=== PATIENT | female | born 1945 | race Caucasian/White ===

== ENCOUNTER 2018-03-13 00:35 | Outpatient (CLI) | payer BC, SELFPAY ==
--- NOTE | 2018-03-13 15:49 | DI.MAMMO_ITS ---
SYMPTOM/DIAGNOSIS: SCREENING, Z12.31 MAMMOGRAMS: Mammograms were interpreted according to the usual protocol including computer analysis with CAD system, tomosynthesis and C view imaging. Comparison is made with exams from [id number]. The breasts are composed of scattered fibroglandular densities. There are no suspicious masses or suspicious microcalcifications. There has been no significant change. IMPRESSION: Category 1B, negative mammogram. Yearly screening mammography is recommended. [facility] ASSESSMENT OF FINDINGS: Negative. Category 1. Patient will receive a letter notifying them of these results. BI-RADS category B. There are scattered areas of fibroglandular density.
== END 2018-03-13 00:55 ==
PROVIDERS: PCP Family Medicine; Visit Provider Family Medicine
DX: Z12.31 Encounter for screening mammogram for malignant neoplasm of breast (principal)
CPT/HCPCS: 77063; 77067

== ENCOUNTER 2018-08-30 01:58 | Outpatient (CLI) | payer BC, SELFPAY ==
[2018-08-30 08:46] LABS: HCT 39.5 % (36.0-46.0); HGB 12.5 g/dL (12.0-15.5); Mean Corp. HGB Concentration 31.6 g/dL (32.0-36.0); Mean Corpuscular Hemoglobin 23.2 pg (27.0-33.0); Mean Corpuscular Volume 73.4 fL (80-95); Platelet Count 574 x1000/uL (130-400); RBC 5.38 m/cumm (4.00-5.20); RBC Distribution Width 16.6 % (11.7-14.6); White Blood Cell Count 5.45 k/cumm (4.4-10.8)
[2018-08-30 09:37] LABS: ALT 21 U/L (12-78); AST 17 U/L (15-37); Albumin 3.4 g/dL (3.4-5.0); Alkaline Phosphatase 93 U/L (46-116); Anion Gap 7.6 mmol/L (3-11); BUN 12 mg/dL (7-18); Bilirubin, Total 0.3 mg/dL (0.2-1.0); CO2 30.4 mmol/L (21.0-32.0); CREATININE 0.75 mg/dL (0.55-1.02); Calcium 8.8 mg/dL (8.5-10.1); Calculated LDL 134 mg/dL; Chloride 103 mmol/L (98-107); Cholesterol 209 mg/dL (50-200); Glucose 115 mg/dL (70-100); HDL Cholesterol 62 mg/dL (40-60); Potassium 4.3 mmol/L (3.5-5.1); Sodium 141 mmol/L (136-145); Triglyceride 69 mg/dL (30-150)
== END 2018-08-30 02:18 ==
PROVIDERS: PCP Family Medicine; Visit Provider Family Medicine
DX: Z00.00 Encounter for general adult medical examination without abnormal findings (principal); I10 Essential (primary) hypertension; R73.01 Impaired fasting glucose; E78.5 Hyperlipidemia, unspecified; M85.80 Other specified disorders of bone density and structure, unspecified site
CPT/HCPCS: 36415; 80053; 80061; 83721; 85027

== ENCOUNTER 2020-01-31 04:15 | Outpatient (CLI) | payer MEDICARE, BC, SELFPAY ==
--- NOTE | 2020-01-31 | DI.MAMMO_ITS ---
EXAM: MG MAMMO SCREENING CLINICAL HISTORY: SCREENING,Z12.31 TECHNIQUE: Bilateral full field digital CC and MLO mammographic images were obtained with 3D tomosyn thesis and utilizing computer aided detection (CAD). COMPARISON: Available for comparison. FINDINGS: Masses/Architectural Distortion: None seen. Microcalcifications: No suspicious pleomorphic-type are seen. Skin Thickening/Nipple Retraction: None. IMPRESSION: 1. No significant interval change with no specific features of malignancy noted. 2. Unless there is more urgent need, screening mammography is recommended, as per [employer] guidelines. BI-RADS Category 1 - Negative Breast Density - Category B - Scattered areas of fibroglandular density Breast density category C or D implies that the patient has dense breast tissue. Dense breast tissue is very common and is not abnormal but dense breast tissue can make it harder to find cancer on a ma mmogram. Also, dense breast tissue may increase their breast cancer risk. This information about the result of the mammogram report was provided to the patient to raise their awareness. Use this report when you speak with the patient about their risks for breast cancer, which includes their family hist ory. At that time, you may recommend for more screening tests (Ultrasound or MRI) as they might be us eful based on their risk. A negative radiographic report should not delay biopsy if a dominant or clinically suspicious mass is present. Up to ten percent of cancers are not identified on mammography. A negative report may reinforce clinical impression. Adenosis and dense breasts may obscure an underlying neoplasm. False positive reports average 6 to 10%. Patient will receive a letter notifying them of these results.
== END 2020-01-31 04:35 ==
PROVIDERS: PCP Family Medicine; Visit Provider Family Medicine
DX: Z12.31 Encounter for screening mammogram for malignant neoplasm of breast (principal)
CPT/HCPCS: 77063; 77067

== ENCOUNTER → 2020-05-22 09:52 | Outpatient (BNVA) | payer MEDICARE, BC, SELFPAY | PROVIDERS: PCP Family Medicine; Referring Provider Family Medicine; Visit Provider Physical Therapy Assistant | DX: Z12.11 Encounter for screening for malignant neoplasm of colon (principal); I10 Essential (primary) hypertension; Z86.010 Personal history of colon polyps ==

== ENCOUNTER 2020-05-29 02:09 | Outpatient (CLI) | payer MEDICARE, SELFPAY ==
[2020-05-29 11:28] LABS: Source Nasal/Nares
[2020-05-29 13:58] LABS: COVID-19 PCR Negative (Negative)
== END 2020-05-29 02:10 | disposition home or self-care (01) ==
LOC: LBO 02:09
PROVIDERS: PCP Family Medicine; Visit Provider Surgery
DX: Z20.822 Contact with and (suspected) exposure to COVID-19 (principal)
CPT/HCPCS: 87635

== ENCOUNTER 2020-06-01 13:16 | Day surgery (SDC) | payer MEDICARE, SELFPAY ==
--- NOTE | 2020-06-01 07:05 | W.COLOREPORT ---
Date of service: 06/01/20 Time of Service: 14:07 Colonoscopy Report Date of procedure: 06/01/20 Pre-op diagnosis general: Hx of polyps Post-op diagnosis procedure note: same (polyps and diverticulosis) Procedure: Colonoscopy with polypectomy Surgeon: Candy Carvalho Anesthesia Type: General:No Airway Estimated blood loss (mL): 3 Pathology: other (cecal polyp, descending polyps x2, sigmoid polyp) Complications: None Disposition: same day Indications: The patient is here for Colonoscopy pre-op. Her last screening was in 2012 and was remarkable for tubular adenomatous polyps. She has no family history of colon cancer. She has not had any bowel habit changes. -Discussed colonoscopy bowel prep as well as the procedure. Discussed possible complications of the procedure to include bleeding, pain, perforation, missed small lesion/polyp, sore throat, aspiration and adverse reaction to the medications. Questions were answered to patient?s satisfaction. No guarantees were implied or given. Prep: Miralax/Dulcolax Procedure Start Time: 14:07 Procedure End Time: 14:38 Retraction Time: 14 minutes Findings: 4 small polyps mild diverticulosis Procedure Description: After informed consent was obtained the patient was taken to the procedure room and placed in a left decubitous position. Monitors were applied and a time out was done. The patients name, date of , procedure, allergies to medications and metal in their body was reviewed. The patient was then sedated. Once sedated and comfortable a rectal exam was done. External exam was normal. Internal exam revealed a normal sphincter tone and no palpable masses. The scope was then introduced and retro-flexed. No internal hemorrhoids, polyps or masses were identified on retro-flexion. The scope was then advanced to the cecum without difficulty. The ileocecal vlave and appendiceal orifice were identified. The prep was good. The scope was then slowly retracted over 14 minutes back into the rectum. Polyps were removed with cold forceps in the cecum, and descending colon x2. One polyp was removed with a hot snare in the sigmoid colon. There was mild diverticulosis noted of the descending and sigmoid colon. The scope was removed and the patient was woken up and taken back to Same day surgery in stable condition. The patient tolerated the procedure well and there were no immediate complications. Follow up: The patient should follow up in 3-5 years unless they develop changes in bowel habits or other new gastrointestinal complaints.
--- NOTE | 2020-06-01 07:05 | W.PM.DSUDISC ---
Discharge Plan Disposition Patient Disposition: HOME Condition: Good Discharge Details Reason For Visit: colonoscopy Attending Provider: Candy Carvalho Primary Care Provider: Anamika Hubbard Home Meds and New Rx's Prescriptions: Continued ASPIRIN 81 MG tablet 1 tab PO DAILY RF: 0 multivitamin 1 EACH tablet 1 ea PO DAILY RF: 0 simvastatin [Zocor] 40 MG tablet 1 tab PO HS RF: 0 omeprazole [Prilosec] 20 MG capsule,delayed release(DR/EC) 1 tab PO DAILY RF: 0 hydrochlorothiazide 25 MG tablet 1 tab PO DAILY RF: 0 trimethoprim 100 MG tablet 100 mg PO HS Qty: 90 RF: 0 metronidazole 0.75 % cream 1 applic topical BID RF: 0 ferrous gluconate 256 mg (28 mg iron) tablet 256 mg PO DAILY RF: 0 Discontinued bisacodyl [Dulcolax (bisacodyl)] 5 mg tablet,delayed release (DR/EC) 5 mg PO ONCE Qty: 4 RF: 0 polyethylene glycol 3350 17 gram/dose powder 238 g PO ONCE Qty: 238 RF: 0 Discharge Instructions Instructions: Diverticulosis (DC), Colorectal Polyps (DC) Additional Instructions: Findings: 4 polyps Diverticulosis Follow up: 3-5 years Please call if you develop: fevers >101.5 Nausea or Vomiting Abdominal pain that is not transient DAY SURGERY UNIT POST ENDOSCOPY INSTRUCTIONS 1. Because there will be medication in your system for the next 24 hours, you may feel a little sleepy. Your coordination will be affected. Therefore: a. Do not drive or operate dangerous equipment for 24 hours. b. Do not drink alcohol beverages for 24 hours (not even beer). c. Plan to go home and rest for the day. 2. Generally there are no restrictions on your activity after a day or so has gone by, but you may feel a bit fatigued for a few days. 3 After you arrive home you may have a light meal and return to a normal diet as you can tolerate it without feeling sick to your stomach. 4. After surgery, you may feel pain or discomfort. This should be only transient, but if it persists please contact your doctor. 5. If there are any questions regarding the findings of your procedure, please feel free to contact your doctor. 6. If you are unable to contact your doctor with a problem, contact the hospital at [phone]. 7. Continue all your regular medications unless directed otherwise. I understand the above instructions and have no questions. Signature of Patient or Responsible Adult Escort Date/Time Name of Responsible Adult Escort Signature of Nurse Date/Time Activity:: Activity as Tolerated Diet:: high fiber diet Discharge Orders Discharge Orders: Discharge Order (Routine); Ordered 06/01/20 Ordered By: Candy Carvalho
[2020-06-01 13:20] VITALS: BP 160/100; PULSE 87; RESP 18; TEMP 36.6; O2SAT 96
[2020-06-01] MEDS: Lactated Ringers 1,000 ML 80 ML IV (13:50)
--- NOTE | 2020-06-01 14:17 | BOWEL_PTH ---
PATIENT: Zarina Pitt LOC: [facility] U#:[id number] AGE/SX: 74/F ROOM: RE06/01/[address]: Candy Carvalho MD : [id number] BED: DIS: 06/01/2020 SPEC #: [id number] RECD: 06/01/20 16:55 STATUS: MICHAEL REHenry #: [id number] JANIS: 06/01/20 14:[address]: Candy Carvalho DEPT: Surgical Specimen RECD BY: Elidia Martinez ENTERED: 06/01/20 16:56 SP TYPE: Bowel OTHR DR: Anamika Hubbard Tissues: 1 - BIOPSY BOWEL 2 - BIOPSY BOWEL 3 - BIOPSY BOWEL 4 - BIOPSY BOWEL Procedures: GROSS AND MICRO LEVEL 4 Comments: [id number]
[2020-06-01 15:09] VITALS: BP 132/83; PULSE 84; RESP 18; TEMP 36.1; O2SAT 97
[2020-06-01 15:40] VITALS: BP 139/83; PULSE 77; RESP 22; TEMP 36.8; O2SAT 94
== END 2020-06-01 16:05 | disposition home or self-care (01) ==
LOC: SUR 13:17
PROVIDERS: PCP Family Medicine; Visit Provider Surgery
PROC: 0DJD8ZZ Inspection of Lower Intestinal Tract, Via Natural or Artificial Opening Endoscopic (ICD-10-PCS; CPT 45378; principal; 2020-06-01 14:30)
DX: Z12.11 Encounter for screening for malignant neoplasm of colon (principal); Z86.010 Personal history of colon polyps; D12.0 Benign neoplasm of cecum; K57.30 Diverticulosis of large intestine without perforation or abscess without bleeding
CPT/HCPCS: 45385; 45380; 88305; J2001; J2704

== ENCOUNTER 2020-08-18 16:58 | Outpatient (REF) | payer MEDICARE, SELFPAY ==
[2020-08-18 22:20] LABS: HCT 49.5 % (36.0-46.0); HGB 15.9 g/dL (11.2-15.7); MCH 29.7 pg (27.0-33.0); MCHC 32.1 % (32.0-36.0); MCV 92.4 fL (80-95); MPV 10.3 fL (8.0-11.0); Platelet Count 674 10^3/uL (130-400); RBC 5.36 10^6/uL (3.93-5.22); RDW 13.5 % (11.7-14.6); RDW-SD 45.8 fL; WBC 5.57 10^3/uL (4.4-10.8)
[2020-08-18 22:33] LABS: Hemoglobin A1C 5.8 % (<5.7)
[2020-08-18 22:52] LABS: Iron 54 ug/dL (50-170); Total Iron Binding Capacity 296 ug/dL (250-450); Transferrin Sat 18 % (15-50)
[2020-08-18 22:53] LABS: Anion Gap 9.5 mmol/L (3-11); BUN 10 mg/dL (7-18); CO2 28.5 mmol/L (21.0-32.0); CREATININE 0.9 mg/dL (0.55-1.02); Calcium 9.1 mg/dL (8.5-10.1); Calculated LDL 125 mg/dL (<100); Chloride 102 mmol/L (98-107); Cholesterol 210 mg/dL (<200); Glucose 124 mg/dL (74-106); HDL Cholesterol 65 mg/dL (40-60); Potassium 4.5 mmol/L (3.5-5.1); Sodium 140 mmol/L (136-145); Triglyceride 100 mg/dL (<150)
== END 2020-08-18 16:59 | disposition home or self-care (01) ==
LOC: NCHCN 16:58
PROVIDERS: PCP Family Medicine; Visit Provider Nurse Practitioner Family
DX: I10 Essential (primary) hypertension (principal); R73.03 Prediabetes; R05 Cough; Z86.2 Personal history of diseases of the blood and blood-forming organs and certain disorders involving the immune mechanism
CPT/HCPCS: 80048; 80061; 85027; 83036; 83540; 83550

== ENCOUNTER 2020-10-12 04:47 | Outpatient (CLI) | payer MEDICARE, SELFPAY ==
[2020-10-12] MEDS: Methacholine 100 MG VIAL IH (11:56)
[2020-10-12] MEDS: Inhaler, Assist Device 1 EACH MC (11:56)
[2020-10-12] MEDS: Albuterol HFA 18 GM 200 PUFF INH IH (11:56)
--- NOTE | 2020-10-12 12:06 | W.PFT ---
Date of service: 10/12/20 Time of Service: 10:05 Pulmonary Function Test Result Requesting Provider Zaira Echavarria Interpretation Spirometry: There is no airflow obstruction. There is a restricted pattern to spirometry. Lung Volumes: There is moderate restrictive lung disease Diffusion Capacity: The diffusion is normal Airway Pressure: Airways resistance is normal Impression There is moderate restrictive lung disease present. There is no airflow obstruction present. Clinical Correlation therefore is recommended.
--- NOTE | 2020-10-12 12:09 | W.PFT ---
Date of service: 10/12/20 Time of Service: 10:05 Pulmonary Function Test Result Requesting Provider Zaira Echavarria Interpretation Spirometry: There is no airflow limitation present at baseline. There is a restrictive pattern to spirometry. Methacholine challenge testing was performed. This is a positive methacholine challenge test after administration of 8 mg/mL resulting in a 22% decrease in FEV1. Impression Positive methacholine challenge test. Clinical Correlation therefore is recommended.
== END 2020-10-12 04:48 | disposition home or self-care (01) ==
LOC: RT 04:47
PROVIDERS: PCP Family Medicine; Visit Provider Nurse Practitioner Family
DX: R05 Cough (principal); J98.4 Other disorders of lung
CPT/HCPCS: 94060; 94726; 94729; 95070; 94010; J7674

== ENCOUNTER 2020-10-20 02:46 | Outpatient (CLI) | payer MEDICARE, SELFPAY ==
--- NOTE | 2020-10-20 | DI.DEXA_ITS ---
Exam(s) XR DEXA BONE DENSITY W/WO EDGAR EXAM: XR DEXA BONE DENSITY W/WO EDGAR CLINICAL HISTORY: OSTEOPENIA,M85.80 TECHNIQUE: Routine DEXA evaluation of the lumbar spine, hip, or forearm. COMPARISON: Prior DEXA scan performed August 2015 FINDINGS: Performed on a [employer] unit. Lateral image: No compression fracture evident. Lumbar Spine total T-score: -2.1. Prior 2016 result was -1.8 Hip total T-score:-2.5. Prior reading in 2016 was -1.5 Independent reading at the femoral neck yields a T-score of -2.1 Forearm total T-score: -2.3 IMPRESSION: Bone mineral density measures in the osteoporosis range. Fracture risk is high. Note: Any spine fracture indicates 5x risk for subsequent spine fracture and 2x risk for subsequent h ip fracture. World Health Organization criteria for BMD interpretation classify patients: Normal...... T- Score at or above -1.0 Osteopenic... T- Score between -1.0 and -2.5 Osteoporosis... T-Score at or below -2.5
== END 2020-10-20 03:06 ==
PROVIDERS: PCP Nurse Practitioner Family; Visit Provider Nurse Practitioner Family
DX: M85.89 Other specified disorders of bone density and structure, multiple sites (principal)
CPT/HCPCS: 77080

== ENCOUNTER 2020-11-20 22:26 | Observation (INO) | payer MEDICARE, SELFPAY ==
[2020-11-20] VITALS (14 sets, daily range): BP systolic 131–149; BP diastolic 76–89; PULSE 91–111; RESP 16–25; TEMP 36.6; O2SAT 92–96
--- NOTE | 2020-11-20 22:15 | RT.EKG_ITS ---
APPROVED REPORT Exam: Resting ECG Reason for Exam: palpitations Patient Location: E HR:105 bpm ECG Measurements Heart Rate 105 AXIS SC 194 P 28 QRSd 109 QRS -32 QT 362 T 76 QTc 479 Conclusion Sinus tachycardia...rate> 99 Ventricular premature complex...V complex w/ short R-R interval LVH with secondary repolarization abnormality...multi-LVH criteria, abnrm ST-T Inferior infarct, old...Q >35mS, II III aVF Anterior infarct, old...Q >40mS, abnormal ST-T, V2-V5. Sinus. PVCs. LVH. No STEMI. I have reviewed and interpreted ECG and agree with software generated interpretation.
--- NOTE | 2020-11-20 22:30 | DI.RAD_ITS ---
Exam(s) XR CHEST 2V PA LATERAL EXAM: XR CHEST 2V PA LATERAL CLINICAL HISTORY: Chest pain, dizziness, palpitations. TECHNIQUE: 2D digital imaging was performed. COMPARISON: CR CHEST 2 VIEWS PA,LAT from 09/23/2011 CT CHEST HIGH RESOLUTION from 06/30/2015 FINDINGS: Heart size is normal. The mediastinum is not widened. There are chest leads in place. There is a bilateral relatively symmetrical interstitial pattern in both lung blunt, not associated with pleural effusions a. consistent with an element of chronic interstitial disease, as seen on the chest CT scan of 2016. No new confluent infiltrates. No pleural effusions. IMPRESSION: Bilateral interstitial lung disease.This is probably related to an element of pulmonary fibrosis, as evident on the 2016 CT scan. However, cannot completely exclude some deterioration from that time gi nathaly that we are comparing a chest x-ray and chest CT scan. If clinically indicated follow-up chest C T scan can be performed for more accurate comparison. There are no pleural effusions. DATA REPOSITORY: RADIATION DOSE DELIVERED:
[2020-11-20 22:48] LABS: Abs Immature Grans 0.02 10^3/uL (0.0-0.06); Absolute Basophil Count 0.12 10^3/uL (0.0-0.2); Absolute Eosinophil Count 0.27 10^3/uL (0.0-0.7); Absolute Lymphocyte Count 1.64 10^3/uL (1.2-3.4); Absolute Neutrophil Count 6.82 10^3/uL (1.2-6.7); Basophils % 1.2; Eosinophils % 2.7; HCT 45.9 % (36.0-46.0); Immature Grans % 0.2; Lymphocytes % 16.6; MCH 29.8 pg (27.0-33.0); MCHC 32.7 % (32.0-36.0); MCV 91.1 fL (80-95); MPV 9.7 fL (8.0-11.0); Monocytes % 10.1; Neutrophils % 69.2; Nucleated RBC 0 %; Platelet Count 649 10^3/uL (130-400); RBC 5.04 10^6/uL (3.93-5.22); RDW 12.9 % (11.7-14.6); RDW-SD 43.5 fL; WBC 9.87 10^3/uL (4.4-10.8)
--- NOTE | 2020-11-20 22:49 | ED.GENADUL_ITS ---
Discharge Plan Disposition Patient Disposition: [facility] INPATIENT Condition: Improving Discharge Details Clinical Impression: Chest pain, Palpitations Admit Date/Time: 11/21/20 01:02 Admit Provider: Young Hoang Attending Provider: Young Hoang Primary Care Provider: Zaira Echavarria ED Provider: Mi Haji Discharge Data Discharge Date/Time-TO BE ENTERED AT DEPARTURE: 11/21/20 02:40 Medical Decision Making 74-year-old female presents to the ER via EMS with chief complaint of palpitations, dizziness, squeezing chest pain which began approximately 2030 this evening. Patient describes episode of being in the kitchen when she began having some palpitations and feeling that her heart was pounding she reports that it went away. She began feeling dizzy so she sat down. And the palpitations and squeezing in her chest returned with some radiation down her left arm. She reports that the episode lasted approximately 45 minutes. She states that once EMS arrived to her house the palpitations and squeezing subs ided. They did give 4 baby aspirin on scene prior to arrival. Upon initial exam and presentation to the ER department she was denies having any chest pain or squeezing or palpitations. She reports that her father of a IN at age 54. She denies any other cardiac history. She reports that she has never had an EKG. Past medical history on file include tubular adenoma, obesity, UTI and a polyp of the colon. Of note she did take a omeprazole this afternoon for some heartburn. 2234: EKG was reviewed by Dr. Sanide Cruz ER attending, please see her official report, no old EKG available for review. EKG shows left ventricular hypertrophy, occasional multifocal PVCs. Initial heart rate upon arrival is 105. 2315: [facility] cardiology consult requested and EKG faxed by unit staff. Initial troponin I less than 0.05 (within normal limits), CBC shows platelet count of 649, absolute neutrophils 6.2, CMP notable for potassium 3.0, glucose 120 40 mEq potassium liquid ordered p.o. Initial heart score is a 6 2321: Dr. Marquez with [facility] cardiology consulted I did discuss patient case and details with him he recommends repeat serial troponin and EKG and to contact them if any changes or any return of chest pain. At this time due to patient's concerning story, positive family history and dizziness I do recommend admission for observation and chest pain rule out, will contact hospitalist. 2343: Spoke with Dr. Hoang regarding patient case and details my recommendation for admission for chest pain rule out. He agrees to accept patient for admission at this time. Heart rate at this time is 97. I discussed plan of care with patient and family who verbalized understanding and are in agreement with the plan. HPI General Mode of arrival: EMS . Date/Time Provider Initiated Documentation: 11/20/20 22:36 . Limitations to Documentation: no limitations . Information obtained by: patient, EMS and old records reviewed . HPI Narrative: 74-year-old female presents to the ER via EMS with chief complaint of palpitations, dizziness, squeezing chest pain which began approximately 2030 this evening. Patient describes episode of being in the kitchen when she began having some palpitations and feeling that her heart was pounding she reports that it went away. She began feeling dizzy so she sat down. And the palpitations and squeezing in her chest returned with some radiation down her left arm. She reports that the episode lasted approximately 45 minutes. She states that once EMS arrived to her house the palpitations and squeezing subsided. They did give 4 baby aspirin on scene prior to arrival. Upon initial exam and presentation to the ER department she was denies having any chest pain or squeezing or palpitations. She reports that her father of a IN at age 54. She denies any other cardiac history. She reports that she has never had an EKG. Past medical history on file include tubular adenoma, obesity, UTI and a polyp of the colon. Of note she did take a omeprazole this afternoon for some heartburn. Related Data Home Medications Medication Instructions Recorded Confirmed Aspirin 1 tab PO DAILY 05/25/12 11/20/20 hydrochlorothiazide 1 tab PO DAILY 05/25/12 11/20/20 multivitamin 1 ea PO DAILY 05/25/12 11/20/20 omeprazole [Prilosec] 1 tab PO DAILY tab-cap 05/25/12 11/20/20 simvastatin [Zocor] 1 tab PO HS 05/25/12 11/20/20 ferrous gluconate 256 mg (28 mg 256 mg PO DAILY 03/12/20 11/20/20 iron) tablet metronidazole 0.75 % topical cream 1 applic TOPICAL BID 03/12/20 11/20/20 potassium chloride [Klor-Con M20] 20 meq PO DAILY #30 tab 11/21/20 Previous Rx's Medication Instructions Recorded potassium chloride [Klor-Con M20] 20 meq PO DAILY #30 tab 11/21/20 Allergies Allergy/AdvReac Type Severity Reaction Status Date / Time Penicillins Allergy Hives Unverified 11/20/20 22:30 atorvastatin calcium AdvReac INCREASE Unverified 11/20/20 22:30 [From Lipitor] IN CPK Anesthetic used during AdvReac Severe NAUSEA/VOMI Uncoded 11/20/20 22:30 hysterectomy TING General Stated Complaint: Chest Pain TY: 3 Review of Systems All systems reviewed & are unremarkable except as noted in HPI and below Constitutional Constitutional: Denies fever(s) Cardiovascular Cardiovascular: Reports chest pain, Denies syncope, Reports rapid heart rate, Denies pedal edema, Reports lightheadedness, Reports radiating jaw, neck or arm pain, Reports palpitations and Denies dyspnea Respiratory Respiratory: Denies cough, Denies hemoptysis and Denies dyspnea Gastrointestinal Gastrointestinal: Denies abdominal pain, Reports heartburn, Denies diarrhea, Reports nausea and Denies vomiting Neurologic Neurologic: Denies syncope Endocrine Endocrine: Reports palpitations [facility] Medical History (Updated 11/21/20 @ 11:45 by Young Hoang) Allergic rhinitis Essential hypertension GERD Hematuria History of basal cell cancer Hypercholesterolemia Hyperlipidemia IMPAIRED FASTING GLUCOSE Osteopenia Rosacea Surgical History Abdominal hysterectomy (04/21/98) Colonoscopy - IV Sedation (~2001) [facility] History of colonoscopy (~05/2020) Family History Mother Stroke Pulmonary embolism Father Heart disease Social History Smoking/Tobacco Use Status: Former Tobacco Use Quit Date: 02/13/69 Smoking risk assessment performed?: Yes Alcohol Intake: current Alcohol Intake frequency: 0-2 drinks per day Alcohol type: wine and hard liquor Drug use: Never Substance use type: does not use Do you feel safe at home: Yes Do you feel safe in your relationship?: Yes Exam Narrative Exam Narrative: Constitutional: Alert and oriented x3. Appears stated age. Normal body habitus. Head: Normocephalic, no trauma. Eyes: Pupils PERRLA, Red reflex noted, EOM's intact. Eyelids symmetrical without lesions, discharge, or swelling. ENT: Bilateral TM's WNL, External ear normal to inspection, no mastoid TTP, swelling, or erythema, Nasal turbinates WNL, no nasal discharge. Normal dentition, Posterior pharynx WNL, no exudate. Chest:Sinus tachycardia, bounding S1, S2, no audible clicks, murmur, rubs, distal pulses intact. Chest pain is nonreproducible with palpation Abdomen: Soft, nontender nondistended. Resp: Lungs clear to auscultation bilaterally, no wheezes, rales, or rhonchi. Musculoskeletal: Normal gait, 5/5 strength to all four extremities. Skin: No suspicious rashes or lesions. Capillary refill less than 2 sec. Neurologic: Cranial nerves II-XII intact. Alert and oriented x 3. DTR's intact. Hematologic/Lymphatic: No ecchymosis, no lymphadenopathy. Course Vital Signs Vital signs: Vital Signs Temperature 36.6 C 11/20/20 22:26 Pulse 111 H 11/20/20 22:26 Respiratory Rate 16 11/20/20 22:26 Blood Pressure 149/81 H 11/20/20 22:26 Pulse Oximetry 96 11/20/20 22:26 Temperature 36.6 C 11/20/20 22:26 Temperature Source Skin 11/20/20 22:26 Pulse 111 H 11/20/20 22:26 Respiratory Rate 16 11/20/20 22:33 Respiratory Effort Non-Labored 11/20/20 22:33 Respiratory Pattern Normal 11/20/20 22:33 Blood Pressure 149/81 H 11/20/20 22:26 Pulse Oximetry 96 11/20/20 22:26 Pain Level 4 11/20/20 22:26 PAWSS Have you Been Recently Intoxicated or Drunk Within the Last 30 days?: No Have you Ever Experienced Previous Episodes of Alcohol Withdrawal?: No Have you ever Experienced Withdrawal Seizures?: No Have you ever Experienced Delirium Tremens(DT)s?: No Have you ever undergone Alcohol Rehabilitation Treatment (i.e, inpt ot outpatient treatment programs)?: No Have you ever Experienced Blackouts?: No Have you ever Combined Alcohol with other Downers within the last 90 days?: No Have you ever Combined Alcohol with any other Substance of Abuse during the last 90 days?: No Positive Blood Alcohol level on Presentation? [PCS.BAL]: No Evidence of Increased Autonomic Activity (i.e. HR>120, tremor, sweating, agitation, nausea)?: No Result: 0
[2020-11-20 23:09] LABS: ALT 19 U/L (14-59); AST 16 U/L (15-37); Albumin 3.4 g/dL (3.4-5.0); Alkaline Phosphatase 99 U/L (46-116); Anion Gap 6.8 mmol/L (3-11); BUN 17 mg/dL (7-18); Bilirubin, Total 0.2 mg/dL (0.2-1.0); CO2 30.2 mmol/L (21.0-32.0); CREATININE 0.9 mg/dL (0.55-1.02); Calcium 8.6 mg/dL (8.5-10.1); Chloride 103 mmol/L (98-107); Glucose 120 mg/dL (74-106); Magnesium 2.1 mg/dL (1.8-2.4); Sodium 140 mmol/L (136-145); Total Protein 7.4 g/dL (6.4-8.2)
[2020-11-20 23:11] LABS: Troponin I < 0.05 ng/mL (<0.06)
[2020-11-20] MEDS: Potassium Chloride Liquid 20 MEQ PKT 40 MEQ PO (23:22)
[2020-11-20 23:47] LABS: Prothrombin Time 10.1 sec (9.3-11.0)
[2020-11-20 23:54] LABS: D-Dimer 292 ng/mlFEU (<500)
[2020-11-20 23:57] LABS: Source Nasal/Nares
[2020-11-21] VITALS (16 sets, daily range): BP systolic 119–152; BP diastolic 75–90; PULSE 68–99; RESP 15–26; TEMP 36.5–37; O2SAT 91–96
--- NOTE | 2020-11-21 00:02 | DI.VRAD_ITS ---
PROCEDURE INFORMATION: Exam: XR Chest Exam date and time: 11/20/2020 10:41 PM Age: 74 years old Clinical indication: Other: Chest pain, dizziness, palpitations TECHNIQUE: Imaging protocol: XR of the chest. Views: 2 views. COMPARISON: CT CHEST HIGH RESOLUTION 06/30/2015 2:20 PM FINDINGS: Lungs: There are opacities along each heart border and in the retrocardiac region which could be related to scarring or progression of the patient's pulmonary fibrotic changes. Areas of atelectasis or infection are not excluded. Pleural spaces: No pneumothorax. Heart/Mediastinum: The mediastinum is measuring widened but similar to prior examination. Diaphragm: There is persistent elevation of the right hemidiaphragm. Bones/joints: Skeletal degenerative changes. IMPRESSION: 1. There are opacities along each heart border and in the retrocardiac region which could be related to scarring or progression of the patient's pulmonary fibrotic changes. Areas of atelectasis or infection are not excluded. 2. Other findings/details as above. If the patient's symptoms remain concerning, cross-sectional imaging could be considered. Dictated and Authenticated by: Lindsey Lindsey MD. Ordering:NAE Stark MD
[2020-11-21 00:46] LABS: COVID-19 PCR Negative (Negative)
[2020-11-21 01:43] LABS: Troponin I < 0.05 ng/mL (<0.06)
[2020-11-21] MEDS: Simvastatin 40 MG TAB PO (03:31)
[2020-11-21 07:23] LABS: Platelet Count 591 10^3/uL (130-400)
[2020-11-21 07:45] LABS: Anion Gap 5.2 mmol/L (3-11); BUN 12 mg/dL (7-18); CO2 31.8 mmol/L (21.0-32.0); CREATININE 0.8 mg/dL (0.55-1.02); Calcium 8.3 mg/dL (8.5-10.1); Chloride 105 mmol/L (98-107); Glucose 109 mg/dL (74-106); Potassium 3.6 mmol/L (3.5-5.1); Sodium 142 mmol/L (136-145); Troponin I < 0.05 ng/mL (<0.06)
[2020-11-21 07:52] LABS: Hemoglobin A1C 5.7 % (<5.7)
[2020-11-21] MEDS: Omeprazole 20 MG CAPCR PO (08:23)
[2020-11-21] MEDS: Aspirin 81 MG CHEW PO (08:23)
[2020-11-21] MEDS: Ferrous Gluconate 324 MG TAB PO (08:23)
[2020-11-21] MEDS: Enoxaparin 40 MG/0.4 ML SYR SC (08:23)
[2020-11-21] MEDS: Multivitamin TAB 1 TAB PO (08:23)
[2020-11-21 09:14] LABS: Calculated LDL 98 mg/dL (<100); Cholesterol 176 mg/dL (<200); HDL Cholesterol 49 mg/dL (40-60); Triglyceride 147 mg/dL (<150)
--- NOTE | 2020-11-21 10:49 | W.PM.HP.N ---
Date of service: 11/21/20 Time of Service: 10:50 Assessment and Plan Assessment and plan (1) Chest pain: Status: Acute Assessment and plan: Atypical chest pain and that the patient is generally fairly active doing gardening and housework and walking on the treadmill with no exertional chest pain or pressure. Symptoms last night occurred along with palpitations which is suspicious for paroxysmal tachycardia. This point patient be discharged home with a 30-day cardiac event recorder and will be scheduled for an exercise treadmill stress MPI next week and an echocardiogram. Patient is cautioned if she has any recurrent symptoms of lightheadedness dizziness shortness of breath chest pain or palpitations to return to the emergency department immediately or she should call 911. Qualifiers: Chest pain type: precordial pain Qualified Code(s): R07.2 - Precordial pain (2) Palpitations: Status: Acute Assessment and plan: As above (3) Essential hypertension: Status: Chronic Assessment and plan: Continue hydrochlorothiazide but will prescribe potassium supplementation and recheck her labs next week. If she continues to have hypokalemia then she should be switched to another oral antihypertensive agent or placed on a potassium sparing diuretic (4) GERD: Status: Chronic Assessment and plan: Her discomfort last night was not associated with her typical GERD and she says usually her GERD is well controlled as long she takes her antiacids and her omeprazole. History of Present Illness History of Present Illness Chief Complaint: chest pain/palpitations Narrative: 74 yr old female w/ PMH HTN, HLD, osteoporosis, GERD presented to the ER last night w/ acute onset of substernal chest pressure and palpitations. Symptoms occurred at rest after dinner last night and was associated w/ lightlheadedness and lasted about 40 minutes. Symptoms had resolved by the time she arrived to the ER. Workup in the ER included routine labs (CBC, CMP, serial troponin I levels, pro time and PTT and D-dimer. CBC was unremarkable other than elevated platelet count of 649,000, CMP was remarkable for low potassium at 3.0 and serial troponin I levels were negative at less than 0.05. Coagulation studies were unremarkable with a normal D-dimer 292. Imaging included high-resolution CT of the chest that showed opacities along the heart border in the retrocardiac region related to scarring or progression of patient's pulmonary fibrotic changes. Mediastinum was mildly widened but similar to previous examinations. EKG demonstrated sinus tachycardia rate 105 bpm with voltage criteria for LVH with secondary repolarization abnormalities. 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 Patient has remained pain-free overnight and repeat troponin I levels have been negative for acute infarct. Rhythm overnight has remained sinus rhythm with first-degree AV block and a left bundle branch block pattern. Heart rates been 60s to 90s.Repeat potassium is up to 3.6 this morning. Review of Systems Constitutional Constitutional: Reports as per HPI and Reports system reviewed and no additional complaints, except as documented [facility] Medical History (Updated 11/21/20 @ 11:25 by Young Hoang) Allergic rhinitis Essential hypertension GERD Hematuria History of basal cell cancer Hypercholesterolemia Hyperlipidemia IMPAIRED FASTING GLUCOSE Osteopenia Rosacea Surgical History Abdominal hysterectomy (04/21/98) Colonoscopy - IV Sedation (~2001) [facility] History of colonoscopy (~05/2020) Family History Mother Stroke Pulmonary embolism Father Heart disease Social History Smoking/Tobacco Use Status: Former Tobacco Use Quit Date: 02/13/69 Smoking risk assessment performed?: Yes Alcohol Intake: current Alcohol Intake frequency: 0-2 drinks per day Alcohol type: wine and hard liquor Drug use: Never Substance use type: does not use Do you feel safe at home: Yes Do you feel safe in your relationship?: Yes Meds Allergies and Home Medications Allergies Allergy/AdvReac Type Severity Reaction Status Date / Time Penicillins Allergy Hives Unverified 11/20/20 22:30 atorvastatin calcium AdvReac INCREASE Unverified 11/20/20 22:30 [From Lipitor] IN CPK Anesthetic used during AdvReac Severe NAUSEA/VOMI Uncoded 11/20/20 22:30 hysterectomy TING Home Medications Medication Instructions Recorded Confirmed Type Aspirin 1 tab PO DAILY 05/25/12 11/20/20 History hydrochlorothiazide 1 tab PO DAILY 05/25/12 11/20/20 History multivitamin 1 ea PO DAILY 05/25/12 11/20/20 History omeprazole [Prilosec] 1 tab PO DAILY tab-cap 05/25/12 11/20/20 History simvastatin [Zocor] 1 tab PO HS 05/25/12 11/20/20 History ferrous gluconate 256 mg (28 mg 256 mg PO DAILY 03/12/20 11/20/20 History iron) tablet metronidazole 0.75 % topical cream 1 applic TOPICAL BID 03/12/20 11/20/20 History Exam Const General: cooperative, no acute distress and well groomed Nutritional Appearance: average body habitus and well nourished Orientation: alert, awake and oriented x3 [facility] Head: normal to inspection, no palpable skull fracture, normocephalic and atraumatic General nose exam: external nose normal, nares normal and no nasal discharge Face and sinus: normal facial exam, sinuses nontender and face symmetric Mouth: oral mucosae normal, lip normal, tongue normal, oropharynx normal and moist mucous membranes Eyes General: appearance normal, both eyes and all related structures Visual Blunt: normal visual blunt by confrontation Alignment and Position: alignment normal Periorbital: periorbital findings normal Eyelids: eyelids normal Conjunctivae: conjunctivae normal Sclera: sclerae normal Cornea: corneas normal Pupils: PERRL, normal by confrontation and accommodation normal EOM: EOM intact bilaterally Neck Neck: normal visual inspection, full ROM, no lymphadenopathy, trachea midline and supple Thyroid: thyroid normal Carotids: normal carotid upstroke Lymphatic: no lymphadenopathy noted Chest Chest: normal inspection of the chest and normal palpation of entire chest wall Resp Effort & Inspection: normal respiratory effort and able to speak in complete sentences Auscultation: clear to auscultation bilaterally Percussion: percussion normal Cardio Jugular venous pressure: no JVD Palpation: normal PMI Rate: regular rate Rhythm: regular rhythm Heart Sounds: S1 normal, S2 normal and normal, physiologic split S2 Pulses: normal peripheral pulses GI Inspection: normal to inspection Palpation: soft, no hepatosplenomegaly and nontender Percussion: normal to percussion Auscultation: normal bowel sounds Skin General skin exam: no rashes or lesions noted, elasticity normal and turgor normal Lesions: no lesions Rashes: no rashes Trauma: no lacerations or abrasions Hair: normal Nails: normal Neuro General: patient alert, patient awake, patient oriented x3, moves all extremities and no focal motor deficits Cranial Nerves: CN's II-XI intact bilaterally, PERRL, accommodation normal, EOM intact bilaterally, no nystagmus, facial strength normal, tongue midline, gag reflex normal, hearing normal, able to rotate head bilaterally and able to elevate shoulders bilaterally Cognition: normal cognition Speech: speech normal Gait: normal gait Motor: muscle tone normal throughout, strength 5/5 throughout, no movement abnormalities noted and no fasciculations Sensory Exam: no sensory deficits noted Plantar Reflexes: Downgoing: bilateral Coordination: [id number] test normal, [id number] test normal and rapid alternating movement UE normal Extrem General: normal to inspection, full ROM, capillary refill normal, no joint enlargement, no clubbing, cyanosis or edema and no calf tenderness bilaterally Right upper extremity: normal to inspection, full ROM, normal capillary refill and no joint enlargement; no edema Left upper extremity: normal to inspection, full ROM, normal capillary refill and no joint enlargement; no edema Right lower extremity: normal to inspection, full ROM, normal capillary refill and no joint enlargement; no edema Left lower extremity: normal to inspection, full ROM, normal capillary refill and no joint enlargement; no edema Results Labs Result diagrams: 11/21/20 06:55 11/21/20 06:55 Labs: Laboratory Results - last 24 hr 11/20/20 11/20/20 11/20/20 22:33 22:33 22:33 WBC 9.87 RBC 5.04 Hgb 15.0 Hct 45.9 MCV 91.1 MCH 29.8 MCHC 32.7 RDW 12.9 Plt Count 649 H MPV 9.7 Immature Gran % 0.2 Neutrophils % 69.2 Lymphocytes % 16.6 Monocytes % 10.1 Eosinophils % 2.7 Basophils % 1.2 Nucleated RBC % 0 Absolute Neutrophils 6.82 H Absolute Lymphocytes 1.64 Absolute Monocytes 1.00 H Absolute Eosinophils 0.27 Absolute Basophils 0.12 PT INR APTT D-Dimer 292 Sodium 140 Potassium 3.0 L Chloride 103 Carbon Dioxide 30.2 Anion Gap 6.8 BUN 17 Creatinine 0.9 Estimated GFR/1.73 m2 >= 60.00 Glucose 120 H Hemoglobin A1c Calcium 8.6 Magnesium 2.1 Total Bilirubin 0.2 AST 16 ALT 19 Alkaline Phosphatase 99 Troponin I < 0.05 Total Protein 7.4 Albumin 3.4 Triglycerides Total Cholesterol LDL Cholesterol, Calc HDL Cholesterol COVID-19 Source SARS-CoV-2 (PCR) 11/20/20 11/20/20 11/21/20 22:33 23:50 01:10 WBC RBC Hgb Hct MCV MCH MCHC RDW Plt Count MPV Immature Gran % Neutrophils % Lymphocytes % Monocytes % Eosinophils % Basophils % Nucleated RBC % Absolute Neutrophils Absolute Lymphocytes Absolute Monocytes Absolute Eosinophils Absolute Basophils PT 10.1 INR 1.0 APTT 25.0 D-Dimer Sodium Potassium Chloride Carbon Dioxide Anion Gap BUN Creatinine Estimated GFR/1.73 m2 Glucose Hemoglobin A1c Calcium Magnesium Total Bilirubin AST ALT Alkaline Phosphatase Troponin I < 0.05 Total Protein Albumin Triglycerides Total Cholesterol LDL Cholesterol, Calc HDL Cholesterol COVID-19 Source Nasal/Nares SARS-CoV-2 (PCR) Negative 11/21/20 11/21/20 11/21/20 06:55 06:55 06:55 WBC RBC Hgb Hct MCV MCH MCHC RDW Plt Count MPV Immature Gran % Neutrophils % Lymphocytes % Monocytes % Eosinophils % Basophils % Nucleated RBC % Absolute Neutrophils Absolute Lymphocytes Absolute Monocytes Absolute Eosinophils Absolute Basophils PT INR APTT D-Dimer Sodium 142 Potassium 3.6 Chloride 105 Carbon Dioxide 31.8 Anion Gap 5.2 BUN 12 Creatinine 0.8 Estimated GFR/1.73 m2 >= 60.00 Glucose 109 H Hemoglobin A1c 5.7 Calcium 8.3 L Magnesium Total Bilirubin AST ALT Alkaline Phosphatase Troponin I < 0.05 Total Protein Albumin Triglycerides 147 Total Cholesterol 176 LDL Cholesterol, Calc 98 HDL Cholesterol 49 COVID-19 Source SARS-CoV-2 (PCR) 11/21/20 06:55 WBC RBC Hgb Hct MCV MCH MCHC RDW Plt Count 591 H MPV Immature Gran % Neutrophils % Lymphocytes % Monocytes % Eosinophils % Basophils % Nucleated RBC % Absolute Neutrophils Absolute Lymphocytes Absolute Monocytes Absolute Eosinophils Absolute Basophils PT INR APTT D-Dimer Sodium Potassium Chloride Carbon Dioxide Anion Gap BUN Creatinine Estimated GFR/1.73 m2 Glucose Hemoglobin A1c Calcium Magnesium Total Bilirubin AST ALT Alkaline Phosphatase Troponin I Total Protein Albumin Triglycerides Total Cholesterol LDL Cholesterol, Calc HDL Cholesterol COVID-19 Source SARS-CoV-2 (PCR) Last Vital Signs Temp 36.5 C 11/21/20 08:21 Pulse 68 11/21/20 08:21 Resp 18 11/21/20 08:21 BP 152/90 H 11/21/20 08:21 Pulse Ox 96 11/21/20 08:21 PAWSS Have you Been Recently Intoxicated or Drunk Within the Last 30 days?: No Have you Ever Experienced Previous Episodes of Alcohol Withdrawal?: No Have you ever Experienced Withdrawal Seizures?: No Have you ever Experienced Delirium Tremens(DT)s?: No Have you ever undergone Alcohol Rehabilitation Treatment (i.e, inpt ot outpatient treatment programs)?: No Have you ever Experienced Blackouts?: No Have you ever Combined Alcohol with other Downers within the last 90 days?: No Have you ever Combined Alcohol with any other Substance of Abuse during the last 90 days?: No Positive Blood Alcohol level on Presentation? [PCS.BAL]: No Evidence of Increased Autonomic Activity (i.e. HR>120, tremor, sweating, agitation, nausea)?: No Result: 0
[2020-11-21] MEDS: Triamterene 37.5/HCTZ 25 CAP PO (11:35)
--- NOTE | 2020-11-21 11:37 | W.PM.DS.N ---
Date of service: 11/21/20 Time of Service: 11:37 DS: Diagnosis Discharge Diagnosis (1) Chest pain: Status: Resolved Asessment and Plan: Patient remained asymptomatic throughout her hospital stay. Serial troponin I levels were within normal limits x3 sets. CTA of the chest showed no pulmonary embolism or aneurysm. Patient was requesting to return home and she will be set up with a 30-day cardiac event recorder looking for any paroxysmal supraventricular tachycardia or atrial fibrillation and should be set up for an echocardiogram and a treadmill stress MPI test next week. (2) Palpitations: Status: Resolved (3) Essential hypertension: Status: Chronic Asessment and Plan: Patient will remain on her current dose of hydrochlorothiazide but potassium supplementation has been ordered. Repeat potassium level be checked next week. (4) GERD: Status: Chronic Discharge Plan Disposition Patient Disposition: HOME Condition: Improving Discharge Details Reason For Visit: CHEST PAIN Admit Date/Time: 11/21/20 01:02 Admit Provider: Young Hoang Attending Provider: Young Hoang Primary Care Provider: Zaira Echavarria Hospital Course Hospital Course: 74-year-old female with history essential hypertension, GERD, hyperlipidemia, osteoporosis presented with new onset chest pressure and palpitations along with dizziness. This lasted for about 40 minutes. Her called EMS but by the time the patient arrived to the emergency department she was free of any chest discomfort or palpitations. Rhythm was sinus rhythm with a bundle branch block. There is no acute ST elevation there was some LVH changes with repolarization abnormalities. Serial troponin I levels were checked and were all negative x3 sets. Patient remained pain-free overnight. Rhythm remains sinus rhythm with a first-degree AV block and a left bundle branch block pattern. Heart rates remain in the 60s to low 90s. She remained asymptomatic. Potassium level was checked on admission and found to be low at 3.0. She was given oral supplementation and came up to 3.6 the next morning. She was discharged home a 30-day cardiac event recorder and orders were placed to obtain an outpatient stress MPI treadmill test along with an echocardiogram for next week. CT of the chest was done on admission showed no pulmonary embolism and no dissection. Mediastinum was read as being mildly widened but unchanged compared to prior studies. 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 I would recommend a follow-up high-resolution CT scan of the chest as an outpatient and referral to pulmonary services. Patient understands that if she has any further chest discomfort or palpitations or shortness of breath or dizziness that she should return the emergency department or call 911. Patient is being discharged home with a prescription for potassium chloride 20 mEq daily to be taken in conjunction with her hydrochlorothiazide. Repeat potassium levels been ordered to be done in 3 days. Should she have recurrent hypokalemia I would recommend changing her hydrochlorothiazide to another oral antihypertensive agent. Home Meds and New Rx's Prescriptions: New potassium chloride [Klor-Con M20] 20 mEq tablet,ER particles/crystals 20 meq PO DAILY Qty: 30 RF: 0 Continued ASPIRIN 81 MG tablet 1 tab PO DAILY RF: 0 multivitamin 1 EACH tablet 1 ea PO DAILY RF: 0 simvastatin [Zocor] 40 MG tablet 1 tab PO HS RF: 0 omeprazole [Prilosec] 20 MG capsule,delayed release(DR/EC) 1 tab PO DAILY RF: 0 hydrochlorothiazide 25 MG tablet 1 tab PO DAILY RF: 0 metronidazole 0.75 % cream 1 applic topical BID RF: 0 ferrous gluconate 256 mg (28 mg iron) tablet 256 mg PO DAILY RF: 0 Discharge Instructions Instructions: Angina (DC), Chest Pain (DC), Heart Palpitations (DC) Activity:: Activity as Tolerated Equipment/Supplies:: No Equipment Needed Diet:: Normal Diet Discharge Orders Discharge Orders: Discharge Order (Routine); Ordered 11/21/20 Ordered By: Young Hoang Other Ambulatory Orders: Cardiac Event Recorder (Routine) Timeframe: 1 Day Facility: [facility] - Location: Respiratory Therapy Ordered By: Young Hoang US echocardiogram (Routine) Timeframe: 1 Week Facility: [facility] - Location: DIAGNOSTIC IMAGING DEPT Ordered By: Young Hoang Potassium (Routine) Timeframe: 3 Days Facility: [facility] - Location: Laboratory Outpatient Ordered By: Young ROB MPI rest & stress grp (Routine) Timeframe: 1 Week Location: None Selected Ordered By: Young Hoang DS: Summary Time Spent with Patient providing and/or coordinating discharge services: Less than 30 minutes Status at Discharge Functional status at discharge: independent ambulation Overall status at discharge: patient is back to baseline Mental Status: mental status grossly normal Speech and Movement: speech and movement normal Mood: congruent mood Affect: normal affect Exam Const General: cooperative, no acute distress and well groomed Nutritional Appearance: average body habitus and well nourished Orientation: alert, awake and oriented x3 [facility] Head: normal to inspection, no palpable skull fracture, normocephalic and atraumatic General nose exam: external nose normal, nares normal and no nasal discharge Face and sinus: normal facial exam, sinuses nontender and face symmetric Mouth: oral mucosae normal, lip normal, tongue normal, oropharynx normal and moist mucous membranes Eyes General: appearance normal, both eyes and all related structures Visual Hutton: normal visual hutton by confrontation Alignment and Position: alignment normal Periorbital: periorbital findings normal Eyelids: eyelids normal Conjunctivae: conjunctivae normal Sclera: sclerae normal Cornea: corneas normal Pupils: PERRL, normal by confrontation and accommodation normal EOM: EOM intact bilaterally Neck Neck: normal visual inspection, full ROM, no lymphadenopathy, trachea midline and supple Thyroid: thyroid normal Carotids: normal carotid upstroke Lymphatic: no lymphadenopathy noted Chest Chest: normal inspection of the chest and normal palpation of entire chest wall Resp Effort & Inspection: normal respiratory effort and able to speak in complete sentences Auscultation: clear to auscultation bilaterally Percussion: percussion normal Cardio Jugular venous pressure: no JVD Palpation: normal PMI Rate: regular rate Rhythm: regular rhythm Heart Sounds: S1 normal, S2 normal and normal, physiologic split S2 Pulses: normal peripheral pulses GI Inspection: normal to inspection Palpation: soft, no hepatosplenomegaly and nontender Percussion: normal to percussion Auscultation: normal bowel sounds Skin General skin exam: no rashes or lesions noted, elasticity normal and turgor normal Lesions: no lesions Rashes: no rashes Trauma: no lacerations or abrasions Hair: normal Nails: normal Neuro General: patient alert, patient awake, patient oriented x3, moves all extremities and no focal motor deficits Cranial Nerves: CN's II-XI intact bilaterally, PERRL, accommodation normal, EOM intact bilaterally, no nystagmus, facial strength normal, tongue midline, gag reflex normal, hearing normal, able to rotate head bilaterally and able to elevate shoulders bilaterally Cognition: normal cognition Speech: speech normal Gait: normal gait Motor: muscle tone normal throughout, strength 5/5 throughout, no movement abnormalities noted and no fasciculations Sensory Exam: no sensory deficits noted Plantar Reflexes: Downgoing: bilateral Coordination: [id number] test normal, uizp-kr-yaio test normal and rapid alternating movement UE normal Extrem General: normal to inspection, full ROM, capillary refill normal, no joint enlargement, no clubbing, cyanosis or edema and no calf tenderness bilaterally Right upper extremity: normal to inspection, full ROM, normal capillary refill and no joint enlargement; no edema Left upper extremity: normal to inspection, full ROM, normal capillary refill and no joint enlargement; no edema Right lower extremity: normal to inspection, full ROM, normal capillary refill and no joint enlargement; no edema Left lower extremity: normal to inspection, full ROM, normal capillary refill and no joint enlargement; no edema Psych Mental Status: mental status grossly normal Speech and Movement: speech and movement normal Mood: congruent mood Affect: normal affect DS: Data Vitals/I&O Vitals and I&O: Vital Signs Temperature 37.0 C 11/21/20 11:31 Temperature Source Temporal Artery Scan 11/21/20 11:31 Pulse 70 11/21/20 11:31 Pulse Rhythm Regular 11/21/20 09:35 Pulse 99 H 11/21/20 00:50 Respiratory Rate 18 11/21/20 11:31 Respiratory Effort Non-Labored 11/21/20 09:35 Respiratory Depth Normal 11/21/20 09:35 Respiratory Pattern Normal 11/21/20 09:35 Blood Pressure 119/76 11/21/20 11:31 Blood Pressure Mean 91 11/21/20 00:46 Pulse Oximetry 91 L 11/21/20 11:31 Oxygen Delivery Method Room Air 11/21/20 11:31 Oxygen Flow Rate 0 11/21/20 11:31 Pain Level 0 11/21/20 11:31 Comment 11/21/20 11:31 Intake & Output 11/20/20 11/20/20 11/21/20 11:59 23:59 11:59 Intake Total 350 / 350 Output Total 200 / 200 Balance 150 / 150 Weight 84 kg 81.647 kg Intake: Oral 350 / 350 Output: Urine 200 / 200 Other: Urine Color Yellow Urine Appearance Clear Urine Odor Normal Voiding Methods Toilet # Voids 1 Data Completed and Pending Labs on day of discharge: Labs from last 24 hours 10/11/0311/21/20 11/21/20 06:55 06:55 06:55 WBC RBC Hgb Hct MCV MCH MCHC RDW Plt Count 591 H MPV Immature Gran % Neutrophils % Lymphocytes % Monocytes % Eosinophils % Basophils % Nucleated RBC % Absolute Neutrophils Absolute Lymphocytes Absolute Monocytes Absolute Eosinophils Absolute Basophils PT INR APTT D-Dimer Sodium Potassium Chloride Carbon Dioxide Anion Gap BUN Creatinine Estimated GFR/1.73 m2 Glucose Hemoglobin A1c 5.7 Calcium Magnesium Total Bilirubin AST ALT Alkaline Phosphatase Troponin I Total Protein Albumin Triglycerides 147 Total Cholesterol 176 LDL Cholesterol, Calc 98 HDL Cholesterol 49 TSH COVID-19 Source SARS-CoV-2 (PCR) 11/21/20 11/21/20 11/21/20 06:55 06:55 01:10 WBC RBC Hgb Hct MCV MCH MCHC RDW Plt Count MPV Immature Gran % Neutrophils % Lymphocytes % Monocytes % Eosinophils % Basophils % Nucleated RBC % Absolute Neutrophils Absolute Lymphocytes Absolute Monocytes Absolute Eosinophils Absolute Basophils PT INR APTT D-Dimer Sodium 142 Potassium 3.6 Chloride 105 Carbon Dioxide 31.8 Anion Gap 5.2 BUN 12 Creatinine 0.8 Estimated GFR/1.73 m2 >= 60.00 Glucose 109 H Hemoglobin A1c Calcium 8.3 L Magnesium Total Bilirubin AST ALT Alkaline Phosphatase Troponin I < 0.05 < 0.05 Total Protein Albumin Triglycerides Total Cholesterol LDL Cholesterol, Calc HDL Cholesterol TSH Pending COVID-19 Source SARS-CoV-2 (PCR) 11/20/20 11/20/20 11/20/20 23:50 22:33 22:33 WBC RBC Hgb Hct MCV MCH MCHC RDW Plt Count MPV Immature Gran % Neutrophils % Lymphocytes % Monocytes % Eosinophils % Basophils % Nucleated RBC % Absolute Neutrophils Absolute Lymphocytes Absolute Monocytes Absolute Eosinophils Absolute Basophils PT 10.1 INR 1.0 APTT 25.0 D-Dimer 292 Sodium Potassium Chloride Carbon Dioxide Anion Gap BUN Creatinine Estimated GFR/1.73 m2 Glucose Hemoglobin A1c Calcium Magnesium Total Bilirubin AST ALT Alkaline Phosphatase Troponin I Total Protein Albumin Triglycerides Total Cholesterol LDL Cholesterol, Calc HDL Cholesterol TSH COVID-19 Source Nasal/Nares SARS-CoV-2 (PCR) Negative 11/20/20 11/20/20 22:33 22:33 WBC 9.87 RBC 5.04 Hgb 15.0 Hct 45.9 MCV 91.1 MCH 29.8 MCHC 32.7 RDW 12.9 Plt Count 649 H MPV 9.7 Immature Gran % 0.2 Neutrophils % 69.2 Lymphocytes % 16.6 Monocytes % 10.1 Eosinophils % 2.7 Basophils % 1.2 Nucleated RBC % 0 Absolute Neutrophils 6.82 H Absolute Lymphocytes 1.64 Absolute Monocytes 1.00 H Absolute Eosinophils 0.27 Absolute Basophils 0.12 PT INR APTT D-Dimer Sodium 140 Potassium 3.0 L Chloride 103 Carbon Dioxide 30.2 Anion Gap 6.8 BUN 17 Creatinine 0.9 Estimated GFR/1.73 m2 >= 60.00 Glucose 120 H Hemoglobin A1c Calcium 8.6 Magnesium 2.1 Total Bilirubin 0.2 AST 16 ALT 19 Alkaline Phosphatase 99 Troponin I < 0.05 Total Protein 7.4 Albumin 3.4 Triglycerides Total Cholesterol LDL Cholesterol, Calc HDL Cholesterol TSH COVID-19 Source SARS-CoV-2 (PCR) [facility] Medical History (Updated 11/21/20 @ 11:45 by Young Hoang) Allergic rhinitis Essential hypertension GERD Hematuria History of basal cell cancer Hypercholesterolemia Hyperlipidemia IMPAIRED FASTING GLUCOSE Osteopenia Rosacea Surgical History Abdominal hysterectomy (04/21/98) Colonoscopy - IV Sedation (~2001) [facility] History of colonoscopy (~05/2020) Family History Mother Stroke Pulmonary embolism Father Heart disease Social History Smoking/Tobacco Use Status: Former Tobacco Use Quit Date: 02/13/69 Smoking risk assessment performed?: Yes Alcohol Intake: current Alcohol Intake frequency: 0-2 drinks per day Alcohol type: wine and hard liquor Drug use: Never Substance use type: does not use Do you feel safe at home: Yes Do you feel safe in your relationship?: Yes
[2020-11-21 11:40] LABS: TSH (W/Ref FT4) 1.96 uIU/mL (0.36-3.74)
--- NOTE | 2020-12-22 15:16 | W.CARDEVENT ---
Date of service: 12/22/20 Time of Service: 15:16 Cardiac Event Recorder Referring Provider:: Young Hoang Indications:: palpitations Cardiac Event Note: This is a 30-day event monitor, reportedly ordered for chest pain palpitations Rhythm throughout the sinus. Average heart rate was 81. Minimum was 57, maximum 107 There were no significant dysrhythmias There was no atrial fibrillation, no high-grade AV block, no pauses greater than 3 seconds Patient symptoms of lightheadedness corresponded to sinus rhythm rate 97
== END 2020-11-21 13:21 | disposition home or self-care (01) ==
LOC: ER 23:47 → MS 11-21 02:44
PROVIDERS: Admitting Provider Internal Medicine; Emergency Provider Registered Nurse Emergency; PCP Nurse Practitioner Family; Visit Provider Internal Medicine
DX: R07.2 Precordial pain (principal); R00.2 Palpitations; I10 Essential (primary) hypertension; E87.6 Hypokalemia; Z79.82 Long term (current) use of aspirin; K21.9 Gastro-esophageal reflux disease without esophagitis; I44.0 Atrioventricular block, first degree; E78.5 Hyperlipidemia, unspecified; Z20.822 Contact with and (suspected) exposure to COVID-19; R07.9 Chest pain, unspecified
CPT/HCPCS: 36415; 80048; 80053; 80061; 87635; 93005; 93270; 99285; J1650; 71046; 83036; 83735; 84443; 84484; 85025; 85049; 85379; 85610; 85730; 93010; 99218; G0378

== ENCOUNTER 2020-11-24 00:44 | Outpatient (CLI) | payer MEDICARE, SELFPAY ==
--- NOTE | 2020-11-24 09:15 | DI.NM_ITS ---
APPROVED REPORT Exam: Pharmacologic paired with low level exercise Patient Location: Out-Patient Room/Bed: Ordering Provider:VIVIAN BENDER, Contact Number: [phone] BMI: 28.18 Baseline Rhythm: Sinus Rhythm Comment: T wave inversions present when standing Indications: CHEST PAIN Medical History Medical History: Palpitations, GERD, HTN, HLD, Osteoporosis, Basal cell carcinoma Cardiac Medications: Aspirin, Hydrochlorothiazide, Omeprazole, Simvastatin, Allergies: Penicillins, Atorvastatin Cardiac Risk Factors: HTN, Hyperlipidemia, FHX of CAD, Smoking (former) Previous Cardiac Procedures: None Pretest Chest Pain Characteristics: No chest pain Exercise History: Sedentary Physical Disabilities: None Lung Sounds: Clear to auscultation Heart Sounds: Regular Stress Test Details Test: Pharmacologic stress was paired with low level exercise. Reason for pharmacologic stress test: T wave inversions. Nuclear Acquisition: Rest Tc-99m/Stress Tc-99m 1 day Rest Isotope: Tc-99m Sestamibi. Dose: 12.0 Date: 11/24/2020 Injection Time: 0930 Stress Isotope: Tc-99m Sestamibi. Dose: 37.0 Date: 11/24/2020 Injection Time: 1133 HR Resting HR Supine: 78 bpm Max Heart Rate (APMHR): 147.130566 bpm Resting HR Standin bpm Target HR (85% APMHR): 124.880336 bpm Max HR Achieved: 124 bpm % of APMHR: 84.35 Recovery HR: 90 bpm HR response to stress: Blunted HR response to stress BP Resting BP Supine: 142/80 mmHg Resting BP Standin/84 mmHg Max BP: 162/84 mmHg Recovery BP: 130/68 mmHg BP response to stress: Blunted blood pressure response to stress. ECG Resting ECG: Sinus Rhythm Ectopy: None Comment: T wave inversions in leads III, aVF, V3-V6 (when standing) Stress ECG: Sinus Tachycardia ST Change: No significant ST segment changes noted, , No significant ST segment changes noted, Horizo ntal ST depression, Upsloping ST depression, Downsloping ST depression, ST Elevation Arrhythmia: None Recovery ECG: Sinus Rhythm Recovery ST Change: No significant ST segment changes noted Recovery Arrhythmia: None Clinical Stress Symptoms: None Rate Pressure Product: [id number] Stress ECG Conclusion 1. Resting electrocardiogram showed sinus rhythm, old anterior wall myocardial infarction 2. Patient underwent pharmacologic stress paired wiith low-level exercise. Maximum METS achieved 2.1 5 3. Blunted hemodynamics. Peak heart rate achieved was 84% of predicted 4. Electrocardiographically the test was nondiagnostic due to resting ST-T abnormalities and an adequ ate heart rate Stress Test Summary STAGE HR BP Symptoms NOTES Supine 78 142/80 1 min post Lexiscan injection 118 144/84 3 min post Lexiscan injection 109 162/84 6 min post Lexiscan injection 90 130/68 STANDING 91 140/84 Lexiscan injection paired w/ low level exercise, 1.5 mph, 0% grade. Patient experienced no symptoms f rom lexiscan injection. MPI Conclusion No evidence of myocardial infarction or ischemia EF 73% Radiologist Interpretation Radiologist agrees with Event Specialist Product Demonstrator's Interpretation. Radiologist Interpretation by: George Jessica MD Interpretation Date/Time: 11/26/2020 09:43:23
[2020-11-24] MEDS: Regadenoson 0.4 MG/5 ML SYR IVP (11:27)
== END 2020-11-24 01:04 ==
PROVIDERS: PCP Nurse Practitioner Family; Visit Provider Internal Medicine
DX: R07.9 Chest pain, unspecified (principal); I10 Essential (primary) hypertension; E78.5 Hyperlipidemia, unspecified; Z82.49 Family history of ischemic heart disease and other diseases of the circulatory system; Z87.891 Personal history of nicotine dependence; I25.2 Old myocardial infarction; R94.39 Abnormal result of other cardiovascular function study
CPT/HCPCS: 78452; 93016; 93018; 93017; J2785

== ENCOUNTER 2020-12-02 01:16 | Outpatient (CLI) | payer MEDICARE, SELFPAY ==
--- NOTE | 2020-12-02 14:49 | DI.US_ITS ---
APPROVED REPORT EXAM: Comprehensive 2D, Doppler, and color-flow Echocardiogram Patient Location: Out-Patient Guide Dog Mob[employer] Instructor: Maria De Jesus Kolb RDCS (AE) Indications: Chest pain Other Information Study Quality: Adequate Conclusion Normal left ventricular wall thickness and chamber size. Estimated ejection fraction is 60 to 65%. There are no segmental wall motion abnormalities Normal right ventricular size and systolic function Both atria are normal in size There is no structural or hemodynamically significant valvular disease Estimated right ventricular systolic pressure is 37 mmHg Mildly dilated ascending aorta measuring 3.43 cm Wall motion Left Ventricle The left ventricle is normal size. The left ventricular systolic function is normal. The left ventric ular ejection fraction is within the normal range. There is normal left ventricular wall thickness. T here is normal LV segmental wall motion. There is no ventricular septal defect visualized. LVEF is 60 -65%. Right Ventricle The right ventricle is normal size. The right ventricular systolic function is normal. The RVSP is 37 .4mmHg. Atria Left atrium is moderately dilated. The right atrium size is normal. The interatrial septum is intact with no evidence for an atrial septal defect. Aortic Valve The aortic valve is normal in structure. There is no aortic valvular stenosis. No aortic regurgitatio n is present. Mitral Valve The mitral valve is normal in structure. No evidence of mitral valve stenosis. Trace mitral regurgita tion. Tricuspid Valve The tricuspid valve is normal in structure. There is no tricuspid valve stenosis. Mild tricuspid regu rgitation. Pulmonic Valve The pulmonary valve is normal in structure. There is no pulmonic valvular stenosis. Trace pulmonic re gurgitation. Great Vessels The aortic root is normal in size. The ascending aorta is mildly dilated.3.43 cm Aortic arch is freddie l in caliber. IVC is normal in size and collapses >50% with inspiration. Pericardium There is no pericardial effusion. 2D Dimensions IVSD d PLAX 0.90 cm F: 0.6-1.0 LV Vol A2C d MOD 73.6 mL LVPW d PLAX 0.90 cm F: 0.6 - 1.0 LV Vol A4C d MOD 70.7 mL LVID d PLAX 3.80 cm F: 3.8 - 5.2 LA vol/ BSA A2C s A-L 20.8 mL/m2 LVDs 2.65 cm F: 2.2 - 3.5 LA vol/ BSA A4C s A-L 26.3 mL/m2 Ao Root d 2.69 cm F: 2.7 - 3.3 LA Vol/ BSA Biplane s A-L 24.0 mL/m2 RA Area A4C 16.06 cm2 LA Area A4C s MOD 18.11 cm2 RA Vol/ BSA A4C s A-L 20.9 mL/m2 LA Area A2C s MOD 15.65 cm2 Ao Asc Diam d 3.43 cm F: 2.3 - 3.1 LV EF A4C MOD 58.5 % LV EF Teichholz 57.8 % LV EF A2C MOD 58.9 % LVEF (Cook's) 58.49 % F: 54 - 74 LV EF Biplane MOD 58.5 % LV Volume 55.92 mL F: 46 - 106 SV 42.94 mL LV Volume Index 29.27 mL/m2 F: 29 - 61 SV Index 22.48 mL/m2 LV Vol Biplane MOD 73.4 mL FS 29.85 % M-Mode TAPSE 2.11 cm (M/F) >1.7 LV Diastology MV E' medial 0.081 (>0.07 m/s) E/A Ratio 0.8 LV E/e MED 8.95 (<14) MV E Vmax 0.73 (0.4-1.3 m/s) MV E' lateral 0.106 (>0.1 m/s) MV A Vmax 0.95 (0.4-1.3 m/s) LV E/e LAT 6.90 (<14) MV E/A Ratio 0.74 MV E/E' medial 9.00 MV E/E' lateral 6.91 Aortic Valve LVOT Area 2.84 cm2 AoV Area Vmax 1.99 cm2 LVOT Vmax 1.17 m/s AoV Area/ BSA (Vmax) 1.04 cm2/m2 LVOT Mean Yasmany. 0.78 m/s RAJI Mean Yasmany. 2.07 cm2 LVOT Peak Grad 5.4 mmHg RAJI Mean Yasmany. Index 1.08 cm2/m2 LVOT Mean Grad 2.8 mmHg LVOT VTI 0.243 m LVOT Diam s 1.90 cm AoV Vmax 1.67 m/s Velocity Ratio 0.70 AoV Mean Yasmany. 1.07 m/s AoV Peak Grad 11.1 mmHg LVOT SV 69.15 mL AoV Mean Grad 5.3 mmHg AoV VTI 0.319 m AoV Area VTI 2.16 cm2 AoV Area/ BSA (VTI) 1.13 cm/m2 Mitral Valve MV DT 272 (160-240 msec) MR Vmax 4.86 m/s MV PHT 79 msec MR VTI 1.434 m MV Area PHT 2.79 cm2 MR Peak Grad 94.7 mmHg MV VTI 0.256 m MR Mean Grad 74.1 mmHg MV VTI Annulus 0.243 m MV Area VTI 2.58 (4.0-6.0 cm2) Pulmonary Valve PV Vmax 1.16 (0.5-1.5 m/s) RVOT Peak Gr. 1.44 mmHg PV Peak Grad 5.4 mmHg RVOT Mean Gr. 0.70 mmHg PV Mean Grad 2.5 mmHg RVOT VTI 0.124 m PV VTI 0.212 m RVOT Vmax 0.60 m/s Tricuspid Valve TR Peak Grad 34.4 mmHg TR Vmax 2.93 m/s RA Pressure 3.00 mmHg RVSP (TR) 37.4 mmHg
== END 2020-12-02 01:36 ==
PROVIDERS: PCP Nurse Practitioner Family; Visit Provider Internal Medicine
DX: R07.9 Chest pain, unspecified (principal); I77.810 Thoracic aortic ectasia
CPT/HCPCS: 93306

== ENCOUNTER 2020-12-07 13:19 | Outpatient (REF) | payer MEDICARE, SELFPAY ==
[2020-12-07 15:20] LABS: Anion Gap 7.6 mmol/L (3-11); BUN 8 mg/dL (7-18); CO2 31.4 mmol/L (21.0-32.0); CREATININE 0.8 mg/dL (0.55-1.02); Calcium 8.9 mg/dL (8.5-10.1); Chloride 104 mmol/L (98-107); Glucose 94 mg/dL (74-106); Magnesium 2.3 mg/dL (1.8-2.4); Potassium 4.1 mmol/L (3.5-5.1); Sodium 143 mmol/L (136-145)
== END 2020-12-07 13:20 | disposition home or self-care (01) ==
LOC: NCHCN 13:19
PROVIDERS: PCP Nurse Practitioner Family; Visit Provider Family Medicine
DX: I10 Essential (primary) hypertension (principal); E87.6 Hypokalemia
CPT/HCPCS: 80048; 83735

== ENCOUNTER 2020-12-22 15:16 | Outpatient (CLI) | payer MEDICARE, SELFPAY | END 2020-12-22 15:17 | LOC: CARDO 12-23 13:32 | PROVIDERS: PCP Nurse Practitioner Family; Referring Provider Internal Medicine; Visit Provider Internal Medicine Cardiovascular Disease | DX: R00.2 Palpitations (principal); R07.9 Chest pain, unspecified | CPT/HCPCS: 93272 ==

== ENCOUNTER 2021-02-01 01:02 | Outpatient (CLI) | payer MEDICARE, SELFPAY ==
--- NOTE | 2021-02-01 08:00 | DI.MAMMO_ITS ---
Exam(s) MAMMO SCREENING EXAM: MAMMO SCREENING CLINICAL HISTORY: SCREENING EXAM FOR BREAST CANCER Z12.39 TECHNIQUE: Mammograms were interpreted according to the usual protocol including computer analysis w [employer] CAD system, tomosynthesis and C-view imaging. COMPARISON: 2011 through 2019 FINDINGS: The breasts are composed of scattered fibroglandular densities, Breast Density category B. No suspicious masses or suspicious microcalcifications are seen. No skin thickening or abnormal axillary lymph nodes are seen. There has been no significant change from prior exams. IMPRESSION: BI-RADS Category 1, Negative mammogram Yearly screening mammography is recommended. Breast Density - Category B, scattered fibroglandular densities. A negative radiographic report should not delay biopsy if a dominant or clinically suspicious mass is present. Up to ten percent of cancers are not identified on mammography. A negative report may reinforce clinical impression. Adenosis and dense breasts may obscure an underlying neoplasm. False positive reports average 6 to 10%. Patient will receive a letter notifying them of these results.
== END 2021-02-01 01:22 ==
PROVIDERS: PCP Nurse Practitioner Family; Visit Provider Family Medicine
DX: Z12.31 Encounter for screening mammogram for malignant neoplasm of breast (principal)
CPT/HCPCS: 77063; 77067

== ENCOUNTER 2021-02-22 04:12 | Outpatient (CLI) | payer MEDICARE, SELFPAY ==
[2021-02-22 14:51] LABS: Abs Immature Grans 0.02 10^3/uL (0.0-0.06); Absolute Basophil Count 0.11 10^3/uL (0.0-0.2); Absolute Eosinophil Count 0.16 10^3/uL (0.0-0.7); Absolute Lymphocyte Count 1.09 10^3/uL (1.2-3.4); Absolute Monocyte Count 0.74 10^3/uL (0.1-0.8); Absolute Neutrophil Count 5.93 10^3/uL (1.2-6.7); Basophils % 1.4; HCT 49.3 % (36.0-46.0); HGB 15.9 g/dL (11.2-15.7); Immature Grans % 0.2; Lymphocytes % 13.5; MCH 29.1 pg (27.0-33.0); MCHC 32.3 % (32.0-36.0); MCV 90.3 fL (80-95); MPV 9.6 fL (8.0-11.0); Monocytes % 9.2; Neutrophils % 73.7; Nucleated RBC 0 %; Platelet Count 637 10^3/uL (130-400); RBC 5.46 10^6/uL (3.93-5.22); RDW 13.9 % (11.7-14.6); RDW-SD 46.5 fL; WBC 8.05 10^3/uL (4.4-10.8)
[2021-02-22 16:44] LABS: Potassium 4.2 mmol/L (3.5-5.1)
[2021-02-22 16:49] LABS: Iron 67 ug/dL (50-170); Total Iron Binding Capacity 283 ug/dL (250-450); Transferrin Sat 24 % (15-50)
[2021-02-22 17:02] LABS: Ferritin 26 ng/mL (8-252)
[2021-02-23 11:18] LABS: Erythropoietin 2.9 mIU/mL (2.6 - 18.5)
[2021-02-26 14:18] LABS: JAK2 Result see interpretation
== END 2021-02-22 04:13 | disposition home or self-care (01) ==
LOC: LBO 04:12
PROVIDERS: Internal Medicine; PCP Nurse Practitioner Family; Visit Provider Internal Medicine Hematology & Oncology
DX: E87.6 Hypokalemia (principal); D75.838 Other thrombocytosis
CPT/HCPCS: 36415; 82668; 81270; 82728; 83540; 83550; 84132; 85025

== ENCOUNTER 2021-04-05 01:59 | Outpatient (RCR) | payer MEDICARE, SELFPAY ==
[2021-03-22] MEDS: Normal Saline Flush 10 ML SYR IVP (08:57)
[2021-03-22 09:09] LABS: HCT 46.7 % (36.0-46.0); HGB 15.1 g/dL (11.2-15.7); MCHC 32.3 % (32.0-36.0); MCV 89.8 fL (80-95); MPV 9.5 fL (8.0-11.0); Platelet Count 648 10^3/uL (130-400); RDW 14.1 % (11.7-14.6); RDW-SD 46.3 fL; WBC 7.36 10^3/uL (4.4-10.8)
[2021-04-05 09:22] LABS: HGB 14.2 g/dL (11.2-15.7); MCH 29.2 pg (27.0-33.0); MCHC 32.2 % (32.0-36.0); MCV 90.7 fL (80-95); MPV 9.4 fL (8.0-11.0); Platelet Count 624 10^3/uL (130-400); RBC 4.86 10^6/uL (3.93-5.22); RDW 14.7 % (11.7-14.6); RDW-SD 49.2 fL; WBC 7.06 10^3/uL (4.4-10.8)
[2021-04-05 09:24] LABS: HCT 44.1 % (36.0-46.0)
[2021-04-05] MEDS: Normal Saline Flush 10 ML SYR IVP (09:31)
== END 2021-04-12 23:59 | disposition home or self-care (01) ==
LOC: INF 01:59
PROVIDERS: PCP Nurse Practitioner Family; Visit Provider Internal Medicine Hematology & Oncology
DX: D75.838 Other thrombocytosis (principal)
CPT/HCPCS: 36415; 85027; 99195

== ENCOUNTER 2021-04-23 03:00 | Outpatient (CLI) | payer MEDICARE, SELFPAY ==
--- NOTE | 2021-04-23 | DI.RAD_ITS ---
Exam(s) XR KNEE RT 3V AP,LAT,KP EXAM: XR KNEE RT 3V AP,LAT,KP CLINICAL HISTORY: RT KNEE PAIN M25.561. TECHNIQUE: 2D digital imaging was performed. COMPARISON: No exams were available for comparison FINDINGS: Three views of the right knee reveal no evidence of fracture or obvious joint effusion. There are degenerative changes. [id number]-rm-[id number] narrowing in the patellofemoral compartment. Moderate degenerative changes in the lateral compartment. Milder degenerative changes in the medial compartme nt. No osseous lesions. IMPRESSION: Degenerative changes as described above. DATA REPOSITORY: RADIATION DOSE DELIVERED:
== END 2021-04-23 03:20 ==
PROVIDERS: PCP Nurse Practitioner Family; Visit Provider Nurse Practitioner Family
DX: M25.561 Pain in right knee (principal); M17.11 Unilateral primary osteoarthritis, right knee
CPT/HCPCS: 73562

== ENCOUNTER 2021-05-03 02:30 | Outpatient (RCR) | payer MEDICARE, SELFPAY ==
[2021-04-19] MEDS: Normal Saline Flush 10 ML SYR IVP (10:47)
[2021-04-19 11:00] LABS: HCT 46.1 % (36.0-46.0); MCH 29.6 pg (27.0-33.0); MCHC 32.3 % (32.0-36.0); MCV 91.7 fL (80-95); MPV 9.2 fL (8.0-11.0); Platelet Count 532 10^3/uL (130-400); RBC 5.03 10^6/uL (3.93-5.22); RDW 14.6 % (11.7-14.6); WBC 7.37 10^3/uL (4.4-10.8)
[2021-04-19 11:02] LABS: HGB 14.9 g/dL (11.2-15.7)
[2021-05-03] MEDS: Normal Saline Flush 10 ML SYR IVP (09:58)
[2021-05-03 10:37] LABS: HCT 40.7 % (36.0-46.0); MCH 29.3 pg (27.0-33.0); MCHC 31.9 % (32.0-36.0); MCV 91.7 fL (80-95); MPV 9.3 fL (8.0-11.0); Platelet Count 545 10^3/uL (130-400); RBC 4.44 10^6/uL (3.93-5.22); RDW 13.9 % (11.7-14.6); RDW-SD 47.2 fL; WBC 6.85 10^3/uL (4.4-10.8)
== END 2021-05-13 23:59 | disposition home or self-care (01) ==
LOC: INF 02:30
PROVIDERS: PCP Nurse Practitioner Family; Visit Provider Internal Medicine Hematology & Oncology
DX: E78.5 Hyperlipidemia, unspecified (principal); D45 Polycythemia vera
CPT/HCPCS: 36415; 85027; 99195

== ENCOUNTER 2021-05-31 02:10 | Outpatient (RCR) | payer MEDICARE, SELFPAY ==
[2021-05-17 10:08] LABS: HGB 14.6 g/dL (11.2-15.7); MCH 28.3 pg (27.0-33.0); MCHC 31.7 % (32.0-36.0); MCV 89.3 fL (80-95); MPV 9.5 fL (8.0-11.0); Platelet Count 516 10^3/uL (130-400); RBC 5.15 10^6/uL (3.93-5.22); RDW 13.2 % (11.7-14.6); RDW-SD 43.6 fL; WBC 8.62 10^3/uL (4.4-10.8)
[2021-05-31 10:22] LABS: HCT 42.6 % (36.0-46.0); HGB 13.2 g/dL (11.2-15.7); MCH 27.6 pg (27.0-33.0); MCV 89.1 fL (80-95); MPV 9.7 fL (8.0-11.0); Platelet Count 501 10^3/uL (130-400); RBC 4.78 10^6/uL (3.93-5.22); RDW 13.2 % (11.7-14.6); RDW-SD 43.4 fL; WBC 6.86 10^3/uL (4.4-10.8)
== END 2021-06-12 23:59 | disposition home or self-care (01) ==
LOC: INF 02:10
PROVIDERS: PCP Nurse Practitioner Family; Visit Provider Internal Medicine Hematology & Oncology
DX: D45 Polycythemia vera (principal)
CPT/HCPCS: 36415; 85027

== ENCOUNTER 2021-07-05 08:27 | Outpatient (REF) | payer MEDICARE, SELFPAY ==
[2021-07-05 16:34] LABS: Abs Immature Grans 0.02 10^3/uL (0.0-0.06); Absolute Basophil Count 0.14 10^3/uL (0.0-0.2); Absolute Eosinophil Count 0.25 10^3/uL (0.0-0.7); Absolute Lymphocyte Count 1.36 10^3/uL (1.2-3.4); Absolute Monocyte Count 0.76 10^3/uL (0.1-0.8); Absolute Neutrophil Count 5.49 10^3/uL (1.2-6.7); Basophils % 1.7; Eosinophils % 3.1; HGB 12.9 g/dL (11.2-15.7); Immature Grans % 0.2; MCH 25.6 pg (27.0-33.0); MCHC 30.7 % (32.0-36.0); MCV 83 fL (80-95); MPV 10.9 fL (8.0-11.0); Monocytes % 9.5; Neutrophils % 68.5; Platelet Count 335 10^3/uL (130-400); RBC 5.04 10^6/uL (3.93-5.22); RDW 14.3 % (11.7-14.6); RDW-SD 43.1 fL; WBC 8.02 10^3/uL (4.4-10.8)
[2021-07-05 17:29] LABS: Anion Gap 8.4 mmol/L (3-11); BUN 13 mg/dL (7-18); CO2 29.6 mmol/L (21.0-32.0); CREATININE 0.9 mg/dL (0.55-1.02); Calcium 8.9 mg/dL (8.5-10.1); Calculated LDL 103 mg/dL (<100); Chloride 102 mmol/L (98-107); Cholesterol 216 mg/dL (<200); Glucose 128 mg/dL (74-106); HDL Cholesterol 81 mg/dL (40-60); Sodium 140 mmol/L (136-145); Triglyceride 160 mg/dL (<150)
== END 2021-07-05 08:28 | disposition home or self-care (01) ==
LOC: NCHCN 08:27
PROVIDERS: PCP Nurse Practitioner Family; Visit Provider Nurse Practitioner Family
DX: D45 Polycythemia vera (principal); D47.3 Essential (hemorrhagic) thrombocythemia; Z86.2 Personal history of diseases of the blood and blood-forming organs and certain disorders involving the immune mechanism; E78.5 Hyperlipidemia, unspecified; E87.6 Hypokalemia; I10 Essential (primary) hypertension
CPT/HCPCS: 80048; 80061; 85025

== ENCOUNTER 2021-07-13 02:04 | Outpatient (RCR) | payer MEDICARE, SELFPAY ==
[2021-06-14 10:19] LABS: HCT 41.6 % (36.0-46.0); HGB 12.9 g/dL (11.2-15.7); MCH 26.8 pg (27.0-33.0); MCV 86 fL (80-95); Platelet Count 551 10^3/uL (130-400); RBC 4.82 10^6/uL (3.93-5.22); RDW 13.4 % (11.7-14.6); WBC 7.44 10^3/uL (4.4-10.8)
[2021-06-28 11:10] LABS: Abs Immature Grans 0.02 10^3/uL (0.0-0.06); Absolute Basophil Count 0.14 10^3/uL (0.0-0.2); Absolute Eosinophil Count 0.08 10^3/uL (0.0-0.7); Absolute Monocyte Count 0.67 10^3/uL (0.1-0.8); Absolute Neutrophil Count 5.51 10^3/uL (1.2-6.7); Basophils % 1.8; HCT 41.1 % (36.0-46.0); HGB 12.8 g/dL (11.2-15.7); Immature Grans % 0.3; Lymphocytes % 16.8; MCH 26.2 pg (27.0-33.0); MCHC 31.1 % (32.0-36.0); MCV 84 fL (80-95); MPV 10.2 fL (8.0-11.0); Monocytes % 8.7; Neutrophils % 71.4; Platelet Count 357 10^3/uL (130-400); RBC 4.89 10^6/uL (3.93-5.22); RDW-SD 42.5 fL; WBC 7.72 10^3/uL (4.4-10.8)
[2021-07-13 10:11] LABS: Abs Immature Grans 0.03 10^3/uL (0.0-0.06); Absolute Basophil Count 0.18 10^3/uL (0.0-0.2); Absolute Lymphocyte Count 0.95 10^3/uL (1.2-3.4); Absolute Monocyte Count 0.57 10^3/uL (0.1-0.8); Absolute Neutrophil Count 6.52 10^3/uL (1.2-6.7); Basophils % 2.1; Eosinophils % 2.4; HCT 41.3 % (36.0-46.0); HGB 12.6 g/dL (11.2-15.7); Immature Grans % 0.4; Lymphocytes % 11.2; MCH 25.4 pg (27.0-33.0); MCHC 30.5 % (32.0-36.0); MCV 83 fL (80-95); MPV 9.9 fL (8.0-11.0); Monocytes % 6.7; Neutrophils % 77.2; Platelet Count 549 10^3/uL (130-400); RBC 4.96 10^6/uL (3.93-5.22); RDW-SD 45.1 fL; WBC 8.45 10^3/uL (4.4-10.8)
[2021-07-13 10:25] LABS: ALT 17 U/L (14-59); AST 16 U/L (15-37); Albumin 3.5 g/dL (3.4-5.0); Alkaline Phosphatase 74 U/L (46-116); Anion Gap 7.5 mmol/L (3-11); BUN 15 mg/dL (7-18); Bilirubin, Total 0.4 mg/dL (0.2-1.0); CO2 29.5 mmol/L (21.0-32.0); CREATININE 0.8 mg/dL (0.55-1.02); Calcium 8.9 mg/dL (8.5-10.1); Chloride 103 mmol/L (98-107); Glucose 137 mg/dL (74-106); Potassium 3.5 mmol/L (3.5-5.1); Sodium 140 mmol/L (136-145); Total Protein 7.5 g/dL (6.4-8.2)
== END 2021-07-13 23:59 | disposition home or self-care (01) ==
LOC: INF 02:04
PROVIDERS: PCP Nurse Practitioner Family; Visit Provider Internal Medicine Hematology & Oncology
DX: D45 Polycythemia vera (principal)
CPT/HCPCS: 36415; 80053; 85027; 85025; J1040

== ENCOUNTER 2021-08-14 13:39 | Emergency (ER) | payer MEDICARE, SELFPAY ==
[2021-08-14 13:44] VITALS: BP 140/73; PULSE 94; TEMP 36; O2SAT 94
--- NOTE | 2021-08-14 14:09 | ED.GENADUL_ITS ---
Discharge Plan Disposition Patient Disposition: HOME Condition: Improving Discharge Details Clinical Impression: Acute otitis media Primary Care Provider: Zaira Echavarria ED Provider: George Coronado Home Meds and New Rx's Prescriptions: New azithromycin 250 mg tablet See Rx Instructions .ROUTE .COMPLEX Qty: 6 0RF Rx Instructions: For 250 mg dose pack: take 500 mg today (day 1), then 250 mg for 4 days (days 2-5) Continued ASPIRIN 81 MG tablet 1 tab PO DAILY multivitamin 1 EACH tablet 1 ea PO DAILY metronidazole 0.75 % cream 1 applic topical BID cholecalciferol (vitamin D3) 50 mcg (2,000 unit) capsule 100 mcg PO DAILY hydroxyurea 500 mg capsule 500 mg PO DAILY hydrochlorothiazide 25 mg tablet 12.5 mg PO DAILY valsartan 40 mg tablet 40 mg PO QHS rosuvastatin 20 mg tablet 20 mg PO DAILY omeprazole 40 mg capsule,delayed release(DR/EC) 40 mg PO DAILY ibandronate [Boniva] 150 mg tablet 150 mg PO QMONTH ferrous sulfate 325 mg (65 mg iron) tablet 325 mg PO DAILY potassium chloride [Klor-Con M20] 20 mEq tablet,ER particles/crystals 20 meq PO DAILY Qty: 30 0RF Discharge Instructions Instructions: Ear Infection (ED) Additional Instructions: Please take antibiotics as prescribed. I recommend htyf-giq-pjhsnvc decongestant such as Claritin 10 mg once during the daytime and Benadryl 25 to 50 mg at night. Return to the ER for any acute concerns Medical Decision Making 71yo Female who flew to [place] for a family reunion. While there 6 of the members including her had a antigen positive COVID test. Patient states she felt asymptomatic without cough, change to taste or smell, and no shortness of breath. After returning home on the flight she felt congestion in the right ear that has persisted and caused a decrease in hearing. On exam she has evidence of acute otitis media. She is allergic to penicillins. We will treat her with a course of azithromycin and decongestant HPI General Mode of arrival: ambulatory . Date/Time Provider Initiated Documentation: 08/14/21 13:47 . Limitations to Documentation: no limitations . Information obtained by: patient . History of Present Illness 75 year old F presents to the emergency department with the chief complaint of Right ear is clogged since plane flight, COVID-positive, described as mild, Quality is described as dull and constant, and is localized to the head and right. Geo solis reports no radiation. Patient started experiencing this day(s) and it has been constant. No relieving factors improve symptom(s), No exacerbating factors reported . Patient notes denies chest pain, cough, fever/chills and shortness of breath. Patient did receive the following treatments prior to arrival, none Related Data Home Medications Medication Instructions Recorded Confirmed Aspirin 1 tab PO DAILY 05/25/12 06/28/21 multivitamin 1 ea PO DAILY 05/25/12 06/28/21 metronidazole 0.75 % topical cream 1 applic topical BID 03/12/20 06/28/21 potassium chloride 20 mEq 20 meq PO DAILY #30 tabs 11/21/20 06/28/21 tablet,extended release(part/cryst) (Klor-Con M) cholecalciferol (vitamin D3) 50 100 mcg PO DAILY 05/04/21 06/28/21 mcg (2,000 unit) capsule ferrous sulfate 325 mg (65 mg 325 mg PO DAILY 05/04/21 06/28/21 iron) tablet hydrochlorothiazide 25 mg tablet 12.5 mg PO DAILY 05/04/21 06/28/21 hydroxyurea 500 mg capsule 500 mg PO DAILY 05/04/21 06/28/21 ibandronate 150 mg tablet (Boniva) 150 mg PO QMONTH 05/04/21 06/28/21 omeprazole 40 mg capsule,delayed 40 mg PO DAILY 05/04/21 06/28/21 release rosuvastatin 20 mg tablet 20 mg PO DAILY 05/04/21 06/28/21 valsartan 40 mg tablet 40 mg PO QHS 05/04/21 06/28/21 azithromycin 250 mg tablet See Rx Instructions PO .COMPLEX #6 08/14/21 tabs Previous Rx's Medication Instructions Recorded potassium chloride 20 mEq 20 meq PO DAILY #30 tabs 11/21/20 tablet,extended release(part/cryst) (Klor-Con M) azithromycin 250 mg tablet See Rx Instructions PO .COMPLEX #6 08/14/21 tabs Allergies Allergy/AdvReac Type Severity Reaction Status Date / Time Penicillins Allergy Hives Unverified 06/28/21 09:58 atorvastatin calcium AdvReac INCREASE Unverified 06/28/21 09:58 [From Lipitor] IN CPK Anesthetic used during AdvReac Severe NAUSEA/VOMI Uncoded 06/28/21 09:58 hysterectomy TING General Stated Complaint: GenMedical TY: 4 Review of Systems Narrative: 6 systems reviewed and otherwise negative PFSH All Active Problems (Updated 08/14/21 @ 14:12 by George Coronado MD) Acute otitis media (Acute) Arthritis of right knee (Acute) Prediabetes (Acute) Coronary artery disease (Chronic) GERD (Chronic) Essential hypertension (Chronic) Tubular adenoma (Acute ~05/2020) x4 Obesity (Chronic) Recurrent UTI (Acute) History of adenomatous polyp of colon (Acute) Medical History Allergic rhinitis Chronic cough Hematuria History of basal cell cancer Hypercholesterolemia Hyperlipidemia IMPAIRED FASTING GLUCOSE Osteopenia Rosacea Thrombocytosis Surgical History Abdominal hysterectomy (04/21/98) Colonoscopy - IV Sedation (~2001) [facility] History of colonoscopy (~05/2020) Family History Mother Stroke Pulmonary embolism Father Heart disease Social History Smoking/Tobacco Use Status: Former Tobacco Use Quit Date: 02/13/69 Smoking risk assessment performed?: Yes Alcohol Intake: current Alcohol Intake frequency: 0-2 drinks per day Alcohol type: wine and hard liquor Drug use: Never Substance use type: does not use Do you feel safe at home: Yes Do you feel safe in your relationship?: Yes Exam Narrative Exam Narrative: GEN: awake, alert, oriented 3. Pleasant, well groomed, interactive. HEAD: Normocephalic, atraumatic ENT: Mucous membranes moist, oropharynx unremarkable, tympanic membranes fluid- filled, distended, erythematous bilaterally right greater than left, external ear exam unremarkable EYES: PERRL, EOMI NECK: Full ROM, no SKYLAR, no menigismus CHEST/RESP: Nontender, clear to auscultation bilateral, no wheeze/rhonchi/rales CARDIOVASCULAR: RRR, no murmur, rub nir. 2+ Rad pulse bilateral ABDOMEN: Soft, nontender, no mass. +Bowel sounds EXT: Full ROM, no edema, no rash Neuro: Grossly normal neurologic exam, conversant, interactive. Psych: Speech fluent, thoughts congruent, affect normal Course Vital Signs Vital signs: Vital Signs Temperature 36 C L 08/14/21 13:44 Pulse 94 H 08/14/21 13:44 Blood Pressure 140/73 08/14/21 13:44 Pulse Oximetry 94 08/14/21 13:44 Temperature 36 C L 08/14/21 13:44 Temperature Source Temporal Artery Scan 08/14/21 13:44 Pulse 94 H 08/14/21 13:44 Blood Pressure 140/73 08/14/21 13:44 Pulse Oximetry 94 08/14/21 13:44 Oxygen Delivery Method Room Air 08/14/21 13:44 Oxygen Flow Rate 0 08/14/21 13:44
[2021-08-14 14:31] VITALS: RESP 18
== END 2021-08-14 14:33 | disposition home or self-care (01) ==
LOC: ER 14:24
PROVIDERS: Emergency Provider Emergency Medicine; PCP Nurse Practitioner Family
DX: H66.91 Otitis media, unspecified, right ear (principal); U07.1 COVID-19; Z87.891 Personal history of nicotine dependence
CPT/HCPCS: 99283; 99284

== ENCOUNTER 2021-08-22 10:39 | Emergency (ER) | payer MEDICARE, SELFPAY ==
[2021-08-22 10:44] VITALS: BP 144/66; PULSE 88; RESP 20; TEMP 36.6; O2SAT 100
--- NOTE | 2021-08-22 11:02 | ED.GENADUL_ITS ---
Discharge Plan Disposition Patient Disposition: HOME Condition: Stable Discharge Details Clinical Impression: Acute effusion of both middle ears Primary Care Provider: Zaira Echavarria ED Provider: Mi Haji Home Meds and New Rx's Prescriptions: Continued ASPIRIN 81 MG tablet 1 tab PO DAILY multivitamin 1 EACH tablet 1 ea PO DAILY metronidazole 0.75 % cream 1 applic topical BID cholecalciferol (vitamin D3) 50 mcg (2,000 unit) capsule 100 mcg PO DAILY hydroxyurea 500 mg capsule 500 mg PO DAILY hydrochlorothiazide 25 mg tablet 12.5 mg PO DAILY valsartan 40 mg tablet 40 mg PO QHS rosuvastatin 20 mg tablet 20 mg PO DAILY omeprazole 40 mg capsule,delayed release(DR/EC) 40 mg PO DAILY ibandronate [Boniva] 150 mg tablet 150 mg PO QMONTH Discharge Instructions Instructions: Ear Infection (ED) Additional Instructions: At this time it appears you have some fluid to your middle ear. This is not uncommon following an ear infection however I do not feel you need an additional antibiotic. Please continue taking the Sudafed PE and try Flonase or fluticasone nasal spray once daily for the next 5 to 7 days. Please follow-up with PCP or ENT for any further concerns or if this does not resolve in the next 3 to 5 days. Follow up with primary care provider in 3-5 days. Return to ED sooner if any worsening or concerns. Increase oral fluids. Referrals: Zaira Echavarria [Primary Care Provider] - Dudley Johnson MD [ [facility] STAFF PHYSICIAN] - Return if symptoms worsen Discharge Data Discharge Date/Time-TO BE ENTERED AT DEPARTURE: 08/22/21 11:19 Medical Decision Making I did discuss taking Flonase rllq-dhz-[id number] 1 or 2 sprays intranasally once daily and continuing with the Sudafed for the next 3 to 5 days. Instructed to follow-up with PCP if any concerns or continued symptoms. We will give her referral for ear nose and throat if needed. At this time there is no evidence for recurrent or refractory otitis media and I do not feel that patient warrants an additional antibiotic at this time. HPI General Mode of arrival: ambulatory . Date/Time Provider Initiated Documentation: 08/22/21 10:53 . Limitations to Documentation: no limitations . Information obtained by: patient, RN notes reviewed and old records reviewed . HPI Narrative: 75-year-old female presents to the ER for ear plugged feeling after having otitis media prescribed amoxicillin approximately a week ago. She has been taking Sudafed PE with little to no relief. On exam there is no evidence for continued otitis media no erythema. She does appear to have an effusion. Denies any other associated symptoms no fever chills no throat pain. Related Data Home Medications Medication Instructions Recorded Confirmed Aspirin 1 tab PO DAILY 05/25/12 08/22/21 multivitamin 1 ea PO DAILY 05/25/12 08/22/21 metronidazole 0.75 % topical cream 1 applic topical BID 03/12/20 08/22/21 cholecalciferol (vitamin D3) 50 100 mcg PO DAILY 05/04/21 08/22/21 mcg (2,000 unit) capsule hydrochlorothiazide 25 mg tablet 12.5 mg PO DAILY 05/04/21 08/22/21 hydroxyurea 500 mg capsule 500 mg PO DAILY 05/04/21 08/22/21 ibandronate 150 mg tablet (Boniva) 150 mg PO QMONTH 05/04/21 08/22/21 omeprazole 40 mg capsule,delayed 40 mg PO DAILY 05/04/21 08/22/21 release rosuvastatin 20 mg tablet 20 mg PO DAILY 05/04/21 08/22/21 valsartan 40 mg tablet 40 mg PO QHS 05/04/21 08/22/21 Allergies Allergy/AdvReac Type Severity Reaction Status Date / Time Penicillins Allergy Hives Unverified 08/22/21 10:49 atorvastatin calcium AdvReac INCREASE Unverified 08/22/21 10:49 [From Lipitor] IN CPK Anesthetic used during AdvReac Severe NAUSEA/VOMI Uncoded 08/22/21 10:49 hysterectomy TING General Stated Complaint: EarProblem TY: 4 Review of Systems ENT Ears, Nose, Mouth, and Throat: Reports hearing loss PFSH All Active Problems (Updated 08/22/21 @ 11:06 by Mi Haji NP) Acute otitis media (Acute) Acute effusion of both middle ears (Acute) Arthritis of right knee (Acute) Prediabetes (Acute) Coronary artery disease (Chronic) GERD (Chronic) Essential hypertension (Chronic) Tubular adenoma (Acute ~05/2020) x4 Obesity (Chronic) Recurrent UTI (Acute) History of adenomatous polyp of colon (Acute) Medical History Allergic rhinitis Chronic cough Hematuria History of basal cell cancer Hypercholesterolemia Hyperlipidemia IMPAIRED FASTING GLUCOSE Osteopenia Rosacea Thrombocytosis Surgical History Abdominal hysterectomy (04/21/98) Colonoscopy - IV Sedation (~2001) [facility] History of colonoscopy (~05/2020) Family History Mother Stroke Pulmonary embolism Father Heart disease Social History Smoking/Tobacco Use Status: Former Tobacco Use Quit Date: 02/13/69 Smoking risk assessment performed?: Yes Alcohol Intake: current Alcohol Intake frequency: 0-2 drinks per day Alcohol type: wine and hard liquor Drug use: Never Substance use type: does not use Do you feel safe at home: Yes Do you feel safe in your relationship?: Yes Exam HENMT Head: normal to inspection Ears: external ears normal, EAC's normal, mastoids normal, external ear abnormal and TM abnormal dull, wth effusion serous and with fluid behind the TM bilaterally Face and sinus: normal facial exam and sinuses nontender Course Vital Signs Vital signs: Vital Signs Temperature 36.6 C 08/22/21 10:44 Pulse 88 08/22/21 10:44 Respiratory Rate 08/22/21 10:44 Blood Pressure 144/66 H 08/22/21 10:44 Pulse Oximetry 100 08/22/21 10:44 Temperature 36.6 C 08/22/21 10:44 Temperature Source Temporal Artery Scan 08/22/21 10:44 Pulse 88 08/22/21 10:44 Respiratory Rate 20 08/22/21 10:44 Respiratory Effort 08/22/21 10:48 Blood Pressure 144/66 H 08/22/21 10:44 Blood Pressure Position Sitting 08/22/21 10:44 Pulse Oximetry 100 08/22/21 10:44 Oxygen Delivery Method Room Air 08/22/21 10:44 Oxygen Flow Rate 0 08/22/21 10:44
== END 2021-08-22 11:19 | disposition home or self-care (01) ==
PROVIDERS: Emergency Provider Registered Nurse Emergency; PCP Nurse Practitioner Family
DX: H92.03 Otalgia, bilateral (principal); Z87.891 Personal history of nicotine dependence
CPT/HCPCS: 99281

== ENCOUNTER 2021-09-02 11:17 | Outpatient (CLI) | payer MEDICARE, SELFPAY | END 2021-09-02 11:18 | disposition home or self-care (01) | LOC: LBO 11:47 | PROVIDERS: PCP Nurse Practitioner Family; Visit Provider Internal Medicine Hematology & Oncology ==

== ENCOUNTER 2021-11-30 03:24 | Outpatient (RCR) | payer MEDICARE, SELFPAY ==
[2021-11-30 09:17] LABS: Abs Immature Grans 0.02 10^3/uL (0.0-0.06); Absolute Basophil Count 0.15 10^3/uL (0.0-0.2); Absolute Eosinophil Count 0.19 10^3/uL (0.0-0.7); Absolute Lymphocyte Count 1.26 10^3/uL (1.2-3.4); Absolute Monocyte Count 0.62 10^3/uL (0.1-0.8); Absolute Neutrophil Count 4.49 10^3/uL (1.2-6.7); Basophils % 2.2; Eosinophils % 2.8; HCT 41.9 % (36.0-46.0); HGB 13.2 g/dL (11.2-15.7); Immature Grans % 0.3; Lymphocytes % 18.7; MCHC 31.5 % (32.0-36.0); MCV 83 fL (80-95); MPV 9.6 fL (8.0-11.0); Monocytes % 9.2; Neutrophils % 66.8; Platelet Count 450 10^3/uL (130-400); RBC 5.07 10^6/uL (3.93-5.22); RDW 16.4 % (11.7-14.6); RDW-SD 48.5 fL; WBC 6.73 10^3/uL (4.4-10.8)
[2021-11-30 09:29] LABS: ALT 15 U/L (14-59); AST 18 U/L (15-37); Albumin 3.7 g/dL (3.4-5.0); Alkaline Phosphatase 75 U/L (46-116); Anion Gap 7.8 mmol/L (3-11); BUN 15 mg/dL (7-18); Bilirubin, Total 0.4 mg/dL (0.2-1.0); CO2 31.2 mmol/L (21.0-32.0); Calcium 9.2 mg/dL (8.5-10.1); Chloride 102 mmol/L (98-107); Estimated GFR 59.12 (mL/min/1.73m2); Glucose 137 mg/dL (74-106); Potassium 3.9 mmol/L (3.5-5.1); Sodium 141 mmol/L (136-145); Total Protein 7.9 g/dL (6.4-8.2)
== END 2021-12-13 23:59 | disposition home or self-care (01) ==
LOC: INF 03:24
PROVIDERS: PCP Nurse Practitioner Family; Visit Provider Internal Medicine Hematology & Oncology
DX: D47.1 Chronic myeloproliferative disease (principal)
CPT/HCPCS: 36415; 80053; 85025

== ENCOUNTER 2022-03-01 02:52 | Outpatient (RCR) | payer MEDICARE, SELFPAY ==
[2022-03-01 08:36] LABS: Abs Immature Grans 0.03 10^3/uL (0.0-0.06); Absolute Basophil Count 0.15 10^3/uL (0.0-0.2); Absolute Eosinophil Count 0.16 10^3/uL (0.0-0.7); Absolute Lymphocyte Count 1.47 10^3/uL (1.2-3.4); Absolute Monocyte Count 0.65 10^3/uL (0.1-0.8); Basophils % 1.8; Eosinophils % 1.9; HCT 44.4 % (36.0-46.0); HGB 13.5 g/dL (11.2-15.7); Immature Grans % 0.4; Lymphocytes % 17.2; MCH 25.5 pg (27.0-33.0); MCHC 30.4 % (32.0-36.0); MCV 84 fL (80-95); MPV 9.3 fL (8.0-11.0); Monocytes % 7.6; Neutrophils % 71.1; Platelet Count 508 10^3/uL (130-400); RDW-SD 48.4 fL; WBC 8.56 10^3/uL (4.4-10.8)
[2022-03-01 08:53] LABS: ALT 12 U/L (14-59); AST 18 U/L (15-37); Albumin 3.9 g/dL (3.4-5.0); Alkaline Phosphatase 89 U/L (46-116); Anion Gap 7.1 mmol/L (3-11); BUN 16 mg/dL (7-18); Bilirubin, Total 0.4 mg/dL (0.2-1.0); CO2 31.9 mmol/L (21.0-32.0); CREATININE 1.1 mg/dL (0.55-1.02); Calcium 9.2 mg/dL (8.5-10.1); Chloride 100 mmol/L (98-107); Glucose 136 mg/dL (74-106); Potassium 3.7 mmol/L (3.5-5.1); Sodium 139 mmol/L (136-145); Total Protein 8.3 g/dL (6.4-8.2)
== END 2022-03-15 23:59 | disposition home or self-care (01) ==
LOC: INF 02:52
PROVIDERS: PCP Nurse Practitioner Family; Visit Provider Internal Medicine Hematology & Oncology
DX: D45 Polycythemia vera (principal)
CPT/HCPCS: 36415; 80053; 85025

== ENCOUNTER 2022-04-01 10:19 | Day surgery (SDC) | payer MEDICARE, SELFPAY ==
[2022-04-01 10:53] VITALS: BP 142/77; PULSE 74; RESP 16; TEMP 36.7; O2SAT 95
[2022-04-01] MEDS: Tropicam./Phenyleph. (1/2.5%) 5 ML BTL OS ×3 (11:03→11:13)
[2022-04-01 11:07] VITALS: BMI 29.0
--- NOTE | 2022-04-01 11:07 | W.ANESPRE ---
General Info Date of Service Date Performed: 04/01/22 Height: 5 ft 7 in Weight: 83.9 kg Body Mass Index (BMI): 29.0 Surgical Procedure: Operation Date: 04/01/22 12:10 Proposed Procedure Side Surgeon p Cataract Extraction with IOL Implant Left Garth Doherty MD Meds Allergies and Home Medications Allergies Allergy/AdvReac Type Severity Reaction Status Date / Time Penicillins Allergy Mild Hives Verified 04/01/22 10:49 atorvastatin calcium AdvReac Intermediate INCREASE Verified 04/01/22 10:49 [From Lipitor] IN CPK Anesthetic used during AdvReac Severe NAUSEA/VOMI Uncoded 03/30/22 15:33 hysterectomy TING Home Medication Medication Instructions Recorded Aspirin 1 tab PO DAILY 05/25/12 metronidazole 0.75 % topical cream 1 applic topical BID 03/12/20 cholecalciferol (vitamin D3) 50 100 mcg PO DAILY 05/04/21 mcg (2,000 unit) capsule hydrochlorothiazide 25 mg tablet 12.5 mg PO DAILY 05/04/21 hydroxyurea 500 mg capsule 500 mg PO DAILY 05/04/21 ibandronate 150 mg tablet (Boniva) 150 mg PO QMONTH 05/04/21 omeprazole 40 mg capsule,delayed 40 mg PO DAILY 05/04/21 release rosuvastatin 20 mg tablet 20 mg PO DAILY 05/04/21 valsartan 40 mg tablet 40 mg PO QHS 05/04/21 Current Visit Medications: Current Medications Generic Name Dose Route Start Last Admin Trade Name Freq PRN Reason Stop Dose Admin Acetaminophen 1,000 mg 04/01/22 06:00 Acetaminophen 500 Mg Tab PO Q4H PRN PRN Miscellaneous Medication 0 ml 04/01/22 06:00 04/01/22 11:03 Tropicam./Phenyleph. (1/2.5%) 5 Ml Btl OS 1 drp DIRECTED MATTHEW Administration Miscellaneous Medication 0 ml 04/01/22 06:00 Prednisolone 1%, Moxifloxacin 0.5%, Nepafenac 0.1% 5ml Btl OS DIRECTED MATTHEW Tetracaine HCl 0 ml 04/01/22 06:00 Tetracaine 0.5% 4 Ml Btl OS DIRECTED MATTHEW PFSH Active Problems Active Problems: Problem Status Onset Code Essential hypertension GERD History of adenomatous polyp of colon Z86.010 Recurrent UTI N39.0 Obesity E66.9 Tubular adenoma ~05/2020 D36.9 Chest pain R07.9 Palpitations R00.2 Coronary artery disease I25.10 Prediabetes R73.03 Arthritis of right knee M17.11 Medical History Medical History Allergic rhinitis Chronic cough Hematuria History of basal cell cancer Hypercholesterolemia Hyperlipidemia IMPAIRED FASTING GLUCOSE Osteopenia Polycythemia vera tx with hydroxyurea, see's oncologist 4x/year, no radiation or chemo Rosacea Thrombocytosis Surgical History Surgical History Abdominal hysterectomy (04/21/98) Colonoscopy - IV Sedation (~2001) [facility] History of colonoscopy (~05/2020) Tobacco Smoking/Tobacco Use Status: Former Tobacco Use Alcohol Alcohol Intake: current Alcohol intake frequency: 0-2 drinks per day Alcohol type: wine and hard liquor Substance Use Substance use: Never Substance use type: does not use Vital Signs and Lab Results Vital Signs Most Recent Vital Signs in EMR: Most Recent Vital Signs Temp Pulse Resp BP Pulse Ox 36.7 C 74 16 142/77 H 95 04/01/22 10:53 04/01/22 10:53 04/01/22 10:53 04/01/22 10:53 04/01/22 10:53 Lab Results Blood Type / Crossmatch: No Data to Display Complete Blood Count: No Data to Display Complete Metabolic Panel: No Data to Display Liver Function Panel: No Data to Display Coagulation Panel: No Data to Display Cardiac Panel: No Data to Display Arterial Blood Gas: No Data to Display Venous Blood Gas: No Data to Display Pancreas Panel: No Data to Display Thyroid Panel: No Data to Display Infectious Disease: No Data to Display Blood Cultures: No Data to Display Toxicology Panel: No Data to Display Imaging and Studies Imaging and Studies Study information below may be from another EMR and interpreted by another provider. Please see original notes in EMR for more complete details. EKG Summary: PATIENT NAME: Zarina Pitt #: [id number] ORDERING PROVIDER: Danny Haji #: [id number] PRIMARY CARE PROVIDER:RUSLAN ECHAVARRIA NP DATE/TIME OF SERVICE: 11/20/202233 : 1945PERFORMING LOCATION: [place] APPROVED REPORT Exam: Resting ECG Reason for Exam: palpitations Patient Location: HR:105 bpm ECG Measurements Heart Rate 105 AXIS [place] 194 P 28 QRSd 109 QRS -32 QT 362 T76 QTc 479 Conclusion Sinus tachycardia...rate> 99 Ventricular premature complex...V complex w/ short R-R interval LVH with secondary repolarization abnormality...multi-LVH criteria, abnrm ST-T Inferior infarct, old...Q >35mS, II III aVF Anterior infarct, old...Q >40mS, abnormal ST-T, V2-V5. Sinus. PVCs. LVH. No STEMI. I have reviewed and interpreted ECG and agree with software generated interpretation. Stress Test Summary: Patient Name: Zarina Pitt #: [id number]: DI Ordering Provider: Dandre Bender #: [id number]: [facility] Primary Care Provider: Shemar Echavarria of Exam: 11/24/20Sex: F Admission Date: 11/24/20 : 1945 Age: 74 APPROVED REPORT Exam: Pharmacologic paired with low level exercise Patient Location: Out-Patient Room/Bed: Ordering Provider:VIVIAN BENDER, Contact Number: [phone] BMI: 28.18 Baseline Rhythm: Sinus Rhythm Comment: T wave inversions present when standing Indications: CHEST PAIN Medical History Medical History: Palpitations, GERD, HTN, HLD, Osteoporosis, Basal cell carcinoma Cardiac Medications: Aspirin, Hydrochlorothiazide, Omeprazole, Simvastatin, Allergies: Penicillins, Atorvastatin Cardiac Risk Factors: HTN, Hyperlipidemia, FHX of CAD, Smoking (former) Previous Cardiac Procedures: None Pretest Chest Pain Characteristics: No chest pain Exercise History: Sedentary Physical Disabilities: None Lung Sounds: Clear to auscultation Heart Sounds: Regular Stress Test Details Test: Pharmacologic stress was paired with low level exercise. Reason for pharmacologic stress test: T wave inversions. Nuclear Acquisition: Rest Tc-99m/Stress Tc-99m 1 day Rest Isotope: Tc-99m Sestamibi. Dose: 12.0 Date: 11/24/2020 Injection Time: 0930 Stress Isotope: Tc-99m Sestamibi. Dose: 37.0 Date: 11/24/2020 Injection Time: 1133 HR Resting HR Supine: 78 bpmMax Heart Rate (APMHR): 147.334308 bpm Resting HR Standin bpmTarget HR (85% APMHR): 124.432763 bpm Max HR Achieved: 124 bpm % of APMHR: 84.35 Recovery HR: 90 bpm HR response to stress: Blunted HR response to stress BP Resting BP Supine: 142/80 mmHg Resting BP Standin/84 mmHg Max BP: 162/84 mmHg Recovery BP: 130/68 mmHg BP response to stress: Blunted blood pressure response to stress. ECG Resting ECG: Sinus Rhythm Ectopy: None Comment: T wave inversions in leads III, aVF, V3-V6 (when standing) Stress ECG: Sinus Tachycardia ST Change: No significant ST segment changes noted, , No significant ST segment changes noted, Horizontal ST depression, Upsloping ST depression, Downsloping ST depression, ST Elevation Arrhythmia: None Recovery ECG: Sinus Rhythm Recovery ST Change: No significant ST segment changes noted Recovery Arrhythmia: None Clinical Stress Symptoms: None Rate Pressure Product: [id number] Stress ECG Conclusion 1. Resting electrocardiogram showed sinus rhythm, old anterior wall myocardial infarction 2. Patient underwent pharmacologic stress paired wiith low-level exercise. Maximum METS achieved 2.15 3. Blunted hemodynamics. Peak heart rate achieved was 84% of predicted 4. Electrocardiographically the test was nondiagnostic due to resting ST-T abnormalities and an adequate heart rate Stress Test Summary STAGEHRBPSymptomsNOTES [id number] 1 min post Lexiscan [id number] 3 min post Lexiscan [id number] 6 min post Lexiscan [id number]/68 [id number] Lexiscan injection paired w/ low level exercise, 1.5 mph, 0% grade. Patient experienced no symptoms from lexiscan injection. MPI Conclusion No evidence of myocardial infarction or ischemia EF 73% Echocardiogram Summary: Patient Name: Zarina Pitt #: [id number]: DI Ordering Provider: Dandre Bender #: [id number]: REG CLI Primary Care Provider: Shemar Echavarria of Exam: 12/02/20Sex: F Admission Date: 12/02/20 : 1945 Age: 74 APPROVED REPORT EXAM: Comprehensive 2D, Doppler, and color-flow Echocardiogram Patient Location: Out-Patient System Validation Engineer: Maria De Jesus Kolb RDCS (AE) Indications: Chest pain Other Information Study Quality: Adequate Conclusion Normal left ventricular wall thickness and chamber size. Estimated ejection fraction is 60 to 65%. There are no segmental wall motion abnormalities Normal right ventricular size and systolic function Both atria are normal in size There is no structural or hemodynamically significant valvular disease Estimated right ventricular systolic pressure is 37 mmHg Mildly dilated ascending aorta measuring 3.43 cm Wall motion Left Ventricle The left ventricle is normal size. The left ventricular systolic function is normal. The left ventricular ejection fraction is within the normal range. There is normal left ventricular wall thickness. There is normal LV segmental wall motion. There is no ventricular septal defect visualized. LVEF is 60-65%. Right Ventricle The right ventricle is normal size. The right ventricular systolic function is normal. The RVSP is 37.4mmHg. Atria Left atrium is moderately dilated. The right atrium size is normal. The interatrial septum is intact with no evidence for an atrial septal defect. Aortic Valve The aortic valve is normal in structure. There is no aortic valvular stenosis. No aortic regurgitation is present. Mitral Valve The mitral valve is normal in structure. No evidence of mitral valve stenosis. Trace mitral regurgitation. Tricuspid Valve The tricuspid valve is normal in structure. There is no tricuspid valve stenosis. Mild tricuspid regurgitation. Pulmonic Valve The pulmonary valve is normal in structure. There is no pulmonic valvular stenosis. Trace pulmonic regurgitation. Great Vessels The aortic root is normal in size. The ascending aorta is mildly dilated.3.43 cm Aortic arch is normal in caliber. IVC is normal in size and collapses >50% with inspiration. Pericardium There is no pericardial effusion. Pulmonary Function Summary: Pulmonary Function Test PATIENT NAME: Zarina Pitt #: [id number] ADMITTING PROVIDER: Gabby Ball M.D. PRIMARY CARE PROVIDER:JOSIAS FLOYD DATE OF ADMIT: 10/12/20 : 1945 Date of service: 10/12/20 Time of Service: 10:05 Pulmonary Function Test Result Requesting Provider Ruslan Echavarria Interpretation Spirometry: There is no airflow limitation present at baseline. There is a restrictive pattern to spirometry. Methacholine challenge testing was performed. This is a positive methacholine challenge test after administration of 8 mg/mL resulting in a 22% decrease in FEV1. Impression Positive methacholine challenge test. Clinical Correlation therefore is recommended. Anesthesia Assessment and Plan Anesthesia History Personal History: PONV Family History: No Family History of Anesthesia Complications Exercise Tolerance Exercise Tolerance: Metabolic Equivalents>4 (Previous stress test indicated low METs of 2.15. Patient reports good activity, denies cardiac issues. ) Pertinent Negatives Pertinent Negatives: No Symptoms of GERD Cardiac & Pulmonary Exam Cardiac Exam: Normal S1/S2 Heart Sounds Pulmonary Exam: Clear Bilateral Breath Sounds Implantable Cardiac Device Does patient have a Pacemaker or an ICD?: No Airway Exam Known Difficult Airway: No Mallampati Class: 2 Mouth Opening: Normal (> 3cm) Thyromental Distance: Greater than 3 cm Neck Range of Motion: Full ROM Neck Circumference: Normal Teeth Condition: Normal Dentition ASA Classification ASA Score: ASA 2 Emergency Case?: No NPO Status NPO Status: NPO Clears >2 hours, Solids >8 hours Anesthesia Plan Resuscitation Status: Full Code Anesthesia Technique: MAC Anesthesia Airway Planned: Natural Airway Monitors Used: Standard Monitors
[2022-04-01] MEDS: Tetracaine 0.5% 4 ML BTL OS (12:27)
[2022-04-01] MEDS: Balanced Salt Soln.-PLUS 500 ML BAG (12:28)
[2022-04-01] MEDS: Duovisc Viscoelastic System EACH 1 EACH (12:29)
[2022-04-01] MEDS: Lidocaine 2% Jelly 6 ML SYR (12:30)
[2022-04-01] MEDS: Povidone-Iodine Ophth 30 ML BTL (12:32)
[2022-04-01 12:48] VITALS: BP 142/93; PULSE 79; RESP 16; TEMP 36; O2SAT 96
--- NOTE | 2022-04-01 12:49 | W.PM.DSUDISC ---
Date of service: 04/01/22 Time of Service: 12:49 Discharge Plan Disposition Patient Disposition: Home Discharge Details Attending Provider: Garth Doherty Primary Care Provider: Zaira Echavarria Home Meds and New Rx's Prescriptions: No Action ASPIRIN 81 MG tablet 1 tab PO DAILY metronidazole 0.75 % cream 1 applic topical BID cholecalciferol (vitamin D3) 50 mcg (2,000 unit) capsule 100 mcg PO DAILY hydroxyurea 500 mg capsule 500 mg PO DAILY hydrochlorothiazide 25 mg tablet 12.5 mg PO DAILY valsartan 40 mg tablet 40 mg PO QHS rosuvastatin 20 mg tablet 20 mg PO DAILY omeprazole 40 mg capsule,delayed release(DR/EC) 40 mg PO DAILY ibandronate [Boniva] 150 mg tablet 150 mg PO QMONTH Discharge Instructions Stand Alone Forms: Post-op Topical Cataract, Mona Felixey (DSU) Discharge Orders Discharge Orders: Discharge Order (Routine); Ordered 04/01/22 Ordered By: Garth Doherty DS: Diagnosis Discharge Diagnosis (1) Posterior subcapsular age-related cataract of left eye: Status: Resolved (2) Nuclear age-related cataract, left eye: Status: Resolved
--- NOTE | 2022-04-01 12:52 | ROE_ITS ---
Date of service: 04/01/22 Time of Service: 12:52 Operative Note Operative Note DATE OF PROCEDURE: 04/01/22 PRE-OP DIAGNOSIS: Nuclear/posterior subcapsular cataract, left eye POST-OP DIAGNOSIS: same PROCEDURE: Cataract extraction using phacoemulsification with intraocular lens implant, left eye SURGEON: Garth Doherty ANESTHESIA TYPE: Local By Surgeon and MAC Refer to Anesthesia Record PATHOLOGY: none sent COMPLICATIONS: None Patient was transported to: same day Patient's condition: stable Implants: Alvaro and Alvaro Tecnis Eyhance DIB00 Indications: Progressive decreased vision due to cataract, left eye Procedure Description: CATARACT SURGERY OPERATIVE REPORT PREOPERATIVE DIAGNOSIS: 1. Nuclear/posterior subcapsular cataract, left eye POSTOPERATIVE DIAGNOSIS: Same OPERATION: 1. Cataract extraction using phacoemulsification with posterior chamber intraocular lens implant, left eye. IOL: IOL Automatic Clipper And Stripper/Model: Alvaro & Alvaro Tecnis Eyhance DIB00 IOL Power: + 16.5 diopters IOL Serial Number: [id number] Optic Diameter: 6.0 mm Haptic/Overall Diameter: 13.0 mm PHACO INFO: Reid Homesnapurion Vision System with OZil and Active Fluidics Cumulative Dispersed Energy (CDE): 18.54 seconds SURGEON: Garth Doherty MD, MARCIN ANESTHESIA: Monitored A [facility] (MAC), with local sub-tenon's anesthetic infiltration COMPLICATIONS: None SPECIMENS: None INDICATIONS FOR PROCEDURE: The patient is a 76-year-old lady with history of diminished visual acuity in her left eye secondary to the development of nuclear/posterior subcapsular cataract. She is significantly symptomatic that she desires cataract surgery and attempt to improve and maximize her vision. The option of cataract surgery was offered to the patient and she wished to proceed. PROCEDURE: The correct surgical eye was identified and marked as the left eye and the pupil was dilated in the preoperative area using mydriatics and cycloplegics. The dilated pupil size was 7.0 mm. The patient elected to proceed without oral sedation. The patient was brought to the operating room where cardiopulmonary monitoring was instituted and surgical time-out was performed, confirming the correct operative eye and IOL power. Topical anesthesia was administered and ophthalmic povidone-iodine 5% was instilled into the conjunctival fornices. Lidocaine gel was applied to the cornea and the ze-ocular area was prepped with Betadine 10% solution and draped in the usual sterile fashion for intraocular surgery, including an aperture drape. A Tegaderm transparent film dressing was cut in half and used to cover the lashes and lid margins. Care was taken to sequester the lashes and lid margins under the Tegaderm dressing. A lid speculum was placed between the lids of the operative eye and the Reid LuxOR Revalia operating microscope was maneuvered into position. Chanelle scissors were then used to make a conjunctival buttonhole approximately 6mm posterior to the limbus in the inferonasal quadrant. Blunt dissection was carried out to expose bare sclera, and a blunt-tipped sub-tenon?s anesthesia cannula was introduced and passed posteriorly along the globe where non- preserved plain lidocaine was injected into posterior sub-Tenon?s space. A sideport knife was used to make a paracentesis port superiorly/superiortemporally. Intraocular phenylephrine/lidocaine was injected int the anterior chamber.. The anterior chamber was filled with viscoelastic. A keratome knife was used to construct a 2-plane near-clear corneal tunnel extending 2.0mm into clear cornea temporally. A flap was raised on the anterior capsule and capsulorhexis forceps were used to complete a continuous curvilinear capsulorhexis of 5.0 mm. Some zonular laxity was noted. Balanced salt solution was then used to perform cortical cleaving hydrodissection and nuclear hydrodelineation until the lens could be freely rotated within the capsular bag. The lens nucleus was then disassembled and removed within the capsular bag and iris plane using phacoemulsification. Residual cortical material was removed using the 45-degree angled silicone I/A tip with 0.3mm port. The posterior capsule was carefully polished to remove as much residual lens epithelial cells as safely possible. The capsular bag was then inflated and the anterior chamber deepened with viscoelastic. The lens implant described above was inserted into the capsular bag using the Alvaro and Alvaro Simplicity pre-loaded injector. . A Kuglen hook was used to dial the IOL into position. Residual viscoelastic was then removed first from posterior to the IOL, then from the anterior chamber using the I/A handpiece. The lens implant was noted to center nicely within the capsular bag. The incisions were stromally hydrated, and the anterior chamber was reformed using BSS. Then 0.5cc of moxifloxacin 1.0mg/ml were injected into the capsular bag and anterior chamber. The incisions were checked with a Weck spear and found to be secure. Several drops of ophthalmic povidone-iodine 5% were then applied to the eye followed by two drops of Imprimis combination prednisolone/moxifloxacin/nepafenac solution. The drapes were removed and a clear plastic protective eye shield was placed over the eye. The patient was then returned to Same Day Surgery in stable condition.
--- NOTE | 2022-04-01 13:24 | W.ANESPOSTOP ---
Postoperative Evaluation Date, Time and Location Date Performed: 04/01/22 Time Performed: 13:24 Patient Location: Day Surgery Unit Vital Signs Most Recent Imported Vital Signs: Most Recent Vital Signs Temp Pulse Resp BP Pulse Ox 36 C L 79 16 142/93 H 96 04/01/22 12:48 04/01/22 12:48 04/01/22 12:48 04/01/22 12:48 04/01/22 12:48 Pain Score Most Recent Pain Score: Most Recent Pain Score Pain Level 0 04/01/22 12:48 Assessment Mental Status: Awake (Alert & Oriented to Patient Baseline) Airway and Respiratory Function: Patent airway with normal (patient baseline) respiratory exam Cardiovascular Function: Hemodynamically Stable Hydration Status: Adequately Hydrated Nausea & Vomiting: No Nausea or Vomiting Pain: Pt. Denies Any Pain Peripheral Nerve Block: Other (Local by Dr. Doherty)
== END 2022-04-01 13:23 | disposition home or self-care (01) ==
LOC: SUR 10:19
PROVIDERS: PCP Nurse Practitioner Family; Visit Provider Ophthalmology
PROC: (CPT 66984; principal; 2022-04-01 12:00)
DX: H25.042 Posterior subcapsular polar age-related cataract, left eye (principal)
CPT/HCPCS: 66984; V2632

== ENCOUNTER 2022-04-20 02:06 | Outpatient (CLI) | payer MEDICARE, SELFPAY ==
--- NOTE | 2022-04-20 | DI.MAMMO_ITS ---
Exam(s) MAMMO SCREENING EXAM: MAMMO SCREENING CLINICAL HISTORY: SCREENING, Z12.39 TECHNIQUE: Mammograms were interpreted according to the usual protocol including computer analysis w [employer] CAD system, tomosynthesis and C-view imaging. COMPARISON: 2013 through 2020 FINDINGS: The breasts are composed of scattered fibroglandular densities, Breast Density category B. No suspicious masses or suspicious microcalcifications are seen. No skin thickening or abnormal axillary lymph nodes are seen. There has been no significant change from prior exams. IMPRESSION: BI-RADS Category 1, Negative mammogram Yearly screening mammography is recommended. Breast Density - Category B, scattered fibroglandular densities. A negative radiographic report should not delay biopsy if a dominant or clinically suspicious mass is present. Up to ten percent of cancers are not identified on mammography. A negative report may reinforce clinical impression. Adenosis and dense breasts may obscure an underlying neoplasm. False positive reports average 6 to 10%. Patient will receive a letter notifying them of these results.
== END 2022-04-20 02:26 ==
LOC: DI 02:06
PROVIDERS: PCP Nurse Practitioner Family; Visit Provider Nurse Practitioner Family
DX: Z12.31 Encounter for screening mammogram for malignant neoplasm of breast (principal); R92.8 Other abnormal and inconclusive findings on diagnostic imaging of breast
CPT/HCPCS: 77063; 77067

== ENCOUNTER 2022-04-22 09:37 | Day surgery (SDC) | payer MEDICARE, SELFPAY ==
[2022-04-22] MEDS: Tropicam./Phenyleph. (1/2.5%) 5 ML BTL OD ×3 (10:05→10:20)
[2022-04-22 10:07] VITALS: BP 150/75; PULSE 85; RESP 16; TEMP 36.5; O2SAT 95
[2022-04-22 10:14] VITALS: BMI 28.3
--- NOTE | 2022-04-22 10:14 | W.ANESPRE ---
General Info Date of Service Date Performed: 04/22/22 Height: 5 ft 7 in Weight: 82.1 kg Body Mass Index (BMI): 28.3 Surgical Procedure: Operation Date: 04/22/22 11:25 Proposed Procedure Side Surgeon p Cataract Extraction with IOL Implant Right Garth Doherty MD Meds Allergies and Home Medications Allergies Allergy/AdvReac Type Severity Reaction Status Date / Time Penicillins Allergy Mild Hives Verified 04/22/22 10:01 atorvastatin calcium AdvReac Intermediate INCREASE Verified 04/22/22 10:01 [From Lipitor] IN CPK Anesthetic used during AdvReac Severe NAUSEA/VOMI Uncoded 04/22/22 10:01 hysterectomy TING Home Medication Medication Instructions Recorded Aspirin 1 tab PO DAILY 05/25/12 metronidazole 0.75 % topical cream 1 applic topical BID 03/12/20 cholecalciferol (vitamin D3) 50 100 mcg PO DAILY 05/04/21 mcg (2,000 unit) capsule hydrochlorothiazide 25 mg tablet 12.5 mg PO DAILY 05/04/21 hydroxyurea 500 mg capsule 500 mg PO DAILY 05/04/21 ibandronate 150 mg tablet (Boniva) 150 mg PO QMONTH 05/04/21 omeprazole 40 mg capsule,delayed 40 mg PO DAILY 05/04/21 release rosuvastatin 20 mg tablet 20 mg PO DAILY 05/04/21 valsartan 40 mg tablet 40 mg PO QHS 05/04/21 Current Visit Medications: Current Medications Generic Name Dose Route Start Last Admin Trade Name Freq PRN Reason Stop Dose Admin Acetaminophen 1,000 mg 04/22/22 06:00 Acetaminophen 500 Mg Tab PO Q4H PRN PRN Miscellaneous Medication 0 ml 04/22/22 06:00 04/22/22 10:11 Tropicam./Phenyleph. (1/2.5%) 5 Ml Btl OD 1 drp DIRECTED MATTHEW Administration Miscellaneous Medication 0 ml 04/22/22 06:00 Prednisolone 1%, Moxifloxacin 0.5%, Nepafenac 0.1% 5ml Btl OD DIRECTED MATTHEW Tetracaine HCl 0 ml 04/22/22 06:00 Tetracaine 0.5% 4 Ml Btl OD DIRECTED MATTHEW PFSH Active Problems Active Problems: Problem Status Onset Code Essential hypertension GERD History of adenomatous polyp of colon Z86.010 Recurrent UTI N39.0 Obesity E66.9 Tubular adenoma ~05/2020 D36.9 Chest pain R07.9 Palpitations R00.2 Coronary artery disease I25.10 Prediabetes R73.03 Arthritis of right knee M17.11 Nuclear age-related cataract, left eye H25.12 Posterior subcapsular age-related cataract of left eye H25.042 Nuclear sclerotic cataract of right eye H25.11 Posterior subcapsular age-related cataract, right eye H25.041 Medical History Medical History Allergic rhinitis Chronic cough Hematuria History of basal cell cancer Hypercholesterolemia Hyperlipidemia IMPAIRED FASTING GLUCOSE Osteopenia Polycythemia vera tx with hydroxyurea, see's oncologist 4x/year, no radiation or chemo Rosacea Thrombocytosis Surgical History Surgical History (Updated 04/22/22 @ 10:01 by Swati Mahmood) Abdominal hysterectomy (04/21/98) Colonoscopy - IV Sedation (~2001) [facility] History of colonoscopy (~05/2020) Hx of cataract removal with insertion of prosthetic lens Tobacco Smoking/Tobacco Use Status: Former Tobacco Use Alcohol Alcohol Intake: current Alcohol intake frequency: 0-2 drinks per day Alcohol type: wine and hard liquor Substance Use Substance use: Never Substance use type: does not use Vital Signs and Lab Results Vital Signs Most Recent Vital Signs in EMR: Most Recent Vital Signs Temp Pulse Resp BP Pulse Ox 36.5 C 85 16 150/75 H 95 04/22/22 10:07 04/22/22 10:07 04/22/22 10:07 04/22/22 10:07 04/22/22 10:07 Lab Results Blood Type / Crossmatch: No Data to Display Complete Blood Count: No Data to Display Complete Metabolic Panel: No Data to Display Liver Function Panel: No Data to Display Coagulation Panel: No Data to Display Cardiac Panel: No Data to Display Arterial Blood Gas: No Data to Display Venous Blood Gas: No Data to Display Pancreas Panel: No Data to Display Thyroid Panel: No Data to Display Infectious Disease: No Data to Display Blood Cultures: No Data to Display Toxicology Panel: No Data to Display Imaging and Studies Imaging and Studies Study information below may be from another EMR and interpreted by another provider. Please see original notes in EMR for more complete details. EKG Summary: PATIENT NAME: Zarina Pitt #: [id number] ORDERING PROVIDER: Danny Haji #: [id number] PRIMARY CARE PROVIDER:RUSLAN ECHAVARRIA NP DATE/TIME OF SERVICE: 11/20/202233 : 1945PERFORMING LOCATION: [place] APPROVED REPORT Exam: Resting ECG Reason for Exam: palpitations Patient Location: E HR:105 bpm ECG Measurements Heart Rate 105 AXIS MA 194 P 28 QRSd 109 QRS -32 QT 362 T76 QTc 479 Conclusion Sinus tachycardia...rate> 99 Ventricular premature complex...V complex w/ short R-R interval LVH with secondary repolarization abnormality...multi-LVH criteria, abnrm ST-T Inferior infarct, old...Q >35mS, II III aVF Anterior infarct, old...Q >40mS, abnormal ST-T, V2-V5. Sinus. PVCs. LVH. No STEMI. I have reviewed and interpreted ECG and agree with software generated interpretation. Stress Test Summary: Patient Name: Zarina Pitt #: [id number]: DI Ordering Provider: Dandre Bender #: [id number]: [facility] Primary Care Provider: Tatyana Echavarriaate of Exam: 11/24/20Sex: F Admission Date: 11/24/20 : 1945 Age: 74 APPROVED REPORT Exam: Pharmacologic paired with low level exercise Patient Location: Out-Patient Room/Bed: Ordering Provider:VIVIAN BENDER, Contact Number: [phone] BMI: 28.18 Baseline Rhythm: Sinus Rhythm Comment: T wave inversions present when standing Indications: CHEST PAIN Medical History Medical History: Palpitations, GERD, HTN, HLD, Osteoporosis, Basal cell carcinoma Cardiac Medications: Aspirin, Hydrochlorothiazide, Omeprazole, Simvastatin, Allergies: Penicillins, Atorvastatin Cardiac Risk Factors: HTN, Hyperlipidemia, FHX of CAD, Smoking (former) Previous Cardiac Procedures: None Pretest Chest Pain Characteristics: No chest pain Exercise History: Sedentary Physical Disabilities: None Lung Sounds: Clear to auscultation Heart Sounds: Regular Stress Test Details Test: Pharmacologic stress was paired with low level exercise. Reason for pharmacologic stress test: T wave inversions. Nuclear Acquisition: Rest Tc-99m/Stress Tc-99m 1 day Rest Isotope: Tc-99m Sestamibi. Dose: 12.0 Date: 11/24/2020 Injection Time: 0930 Stress Isotope: Tc-99m Sestamibi. Dose: 37.0 Date: 11/24/2020 Injection Time: 1133 HR Resting HR Supine: 78 bpmMax Heart Rate (APMHR): 147.844824 bpm Resting HR Standin bpmTarget HR (85% APMHR): 124.178166 bpm Max HR Achieved: 124 bpm % of APMHR: 84.35 Recovery HR: 90 bpm HR response to stress: Blunted HR response to stress BP Resting BP Supine: 142/80 mmHg Resting BP Standin/84 mmHg Max BP: 162/84 mmHg Recovery BP: 130/68 mmHg BP response to stress: Blunted blood pressure response to stress. ECG Resting ECG: Sinus Rhythm Ectopy: None Comment: T wave inversions in leads III, aVF, V3-V6 (when standing) Stress ECG: Sinus Tachycardia ST Change: No significant ST segment changes noted, , No significant ST segment changes noted, Horizontal ST depression, Upsloping ST depression, Downsloping ST depression, ST Elevation Arrhythmia: None Recovery ECG: Sinus Rhythm Recovery ST Change: No significant ST segment changes noted Recovery Arrhythmia: None Clinical Stress Symptoms: None Rate Pressure Product: [id number] Stress ECG Conclusion 1. Resting electrocardiogram showed sinus rhythm, old anterior wall myocardial infarction 2. Patient underwent pharmacologic stress paired wiith low-level exercise. Maximum METS achieved 2.15 3. Blunted hemodynamics. Peak heart rate achieved was 84% of predicted 4. Electrocardiographically the test was nondiagnostic due to resting ST-T abnormalities and an adequate heart rate Stress Test Summary STAGEHRBPSymptomsNOTES [id number]/80 1 min post Lexiscan [id number]/84 3 min post Lexiscan [id number]/84 6 min post Lexiscan [id number]/68 [id number]/84 Lexiscan injection paired w/ low level exercise, 1.5 mph, 0% grade. Patient experienced no symptoms from lexiscan injection. MPI Conclusion No evidence of myocardial infarction or ischemia EF 73% Echocardiogram Summary: Patient Name: Zarina Pitt #: [id number]: DI Ordering Provider: Dandre Bender #: [id number]: VICENTE FELDMAN Primary Care Provider: Shemar Echavarria of Exam: 12/02/20Sex: F Admission Date: 12/02/20 : 1945 Age: 74 APPROVED REPORT EXAM: Comprehensive 2D, Doppler, and color-flow Echocardiogram Patient Location: Out-Patient Anime Designer: Maria De Jesus Kolb RDCS (AE) Indications: Chest pain Other Information Study Quality: Adequate Conclusion Normal left ventricular wall thickness and chamber size. Estimated ejection fraction is 60 to 65%. There are no segmental wall motion abnormalities Normal right ventricular size and systolic function Both atria are normal in size There is no structural or hemodynamically significant valvular disease Estimated right ventricular systolic pressure is 37 mmHg Mildly dilated ascending aorta measuring 3.43 cm Wall motion Left Ventricle The left ventricle is normal size. The left ventricular systolic function is normal. The left ventricular ejection fraction is within the normal range. There is normal left ventricular wall thickness. There is normal LV segmental wall motion. There is no ventricular septal defect visualized. LVEF is 60-65%. Right Ventricle The right ventricle is normal size. The right ventricular systolic function is normal. The RVSP is 37.4mmHg. Atria Left atrium is moderately dilated. The right atrium size is normal. The interatrial septum is intact with no evidence for an atrial septal defect. Aortic Valve The aortic valve is normal in structure. There is no aortic valvular stenosis. No aortic regurgitation is present. Mitral Valve The mitral valve is normal in structure. No evidence of mitral valve stenosis. Trace mitral regurgitation. Tricuspid Valve The tricuspid valve is normal in structure. There is no tricuspid valve stenosis. Mild tricuspid regurgitation. Pulmonic Valve The pulmonary valve is normal in structure. There is no pulmonic valvular stenosis. Trace pulmonic regurgitation. Great Vessels The aortic root is normal in size. The ascending aorta is mildly dilated.3.43 cm Aortic arch is normal in caliber. IVC is normal in size and collapses >50% with inspiration. Pericardium There is no pericardial effusion. Pulmonary Function Summary: Pulmonary Function Test PATIENT NAME: Zarina Pitt #: [id number] ADMITTING PROVIDER: Gabby Ball M.D. PRIMARY CARE PROVIDER:JOSIAS FLOYD DATE OF ADMIT: 10/12/20 : 1945 Date of service: 10/12/20 Time of Service: 10:05 Pulmonary Function Test Result Requesting Provider Ruslan Echavarria Interpretation Spirometry: There is no airflow limitation present at baseline. There is a restrictive pattern to spirometry. Methacholine challenge testing was performed. This is a positive methacholine challenge test after administration of 8 mg/mL resulting in a 22% decrease in FEV1. Impression Positive methacholine challenge test. Clinical Correlation therefore is recommended. Anesthesia Assessment and Plan Anesthesia History Personal History: PONV Family History: No Family History of Anesthesia Complications Exercise Tolerance Exercise Tolerance: Metabolic Equivalents>4 (Previous stress test indicated low METs of 2.15. Patient reports good activity, denies cardiac issues. ) Pertinent Negatives Pertinent Negatives: No Symptoms of GERD (well controlled) and No Major Cardiovascular Symptoms or Complaints Cardiac & Pulmonary Exam Cardiac Exam: Normal S1/S2 Heart Sounds Pulmonary Exam: Clear Bilateral Breath Sounds Implantable Cardiac Device Does patient have a Pacemaker or an ICD?: No Airway Exam Known Difficult Airway: No Mallampati Class: 2 Mouth Opening: Normal (> 3cm) Thyromental Distance: Greater than 3 cm Neck Range of Motion: Full ROM Neck Circumference: Normal Teeth Condition: Normal Dentition ASA Classification ASA Score: ASA 2 Emergency Case?: No NPO Status NPO Status: NPO Clears >2 hours, Solids >8 hours Anesthesia Plan Resuscitation Status: Full Code Anesthesia Technique: MAC Anesthesia Airway Planned: Natural Airway Monitors Used: Standard Monitors Preoperative Comments:: No MKO per pt
[2022-04-22] MEDS: Balanced Salt Soln.-PLUS 500 ML BAG (11:29)
[2022-04-22] MEDS: Tetracaine 0.5% 4 ML BTL OD (11:29)
[2022-04-22] MEDS: Lidocaine 1% Pres-Free 5 ML VIAL (11:30)
[2022-04-22] MEDS: Duovisc Viscoelastic System EACH 1 EACH (11:30)
[2022-04-22] MEDS: Phenylephrine/Lidocaine (15/10) MG/ML 1 ML VIAL (11:31)
[2022-04-22] MEDS: Povidone-Iodine Ophth 30 ML BTL (11:32)
[2022-04-22 11:45] VITALS: BP 146/94; PULSE 74; RESP 16; TEMP 36.4; O2SAT 96
--- NOTE | 2022-04-22 11:47 | W.PM.DSUDISC ---
Date of service: 04/22/22 Time of Service: 11:47 Discharge Plan Disposition Patient Disposition: Home Discharge Details Attending Provider: Garth Doherty Primary Care Provider: Zaira Echavarria Home Meds and New Rx's Prescriptions: No Action ASPIRIN 81 MG tablet 1 tab PO DAILY metronidazole 0.75 % cream 1 applic topical BID cholecalciferol (vitamin D3) 50 mcg (2,000 unit) capsule 100 mcg PO DAILY hydroxyurea 500 mg capsule 500 mg PO DAILY hydrochlorothiazide 25 mg tablet 12.5 mg PO DAILY valsartan 40 mg tablet 40 mg PO QHS rosuvastatin 20 mg tablet 20 mg PO DAILY omeprazole 40 mg capsule,delayed release(DR/EC) 40 mg PO DAILY ibandronate [Boniva] 150 mg tablet 150 mg PO QMONTH Discharge Instructions Stand Alone Forms: Post-op Topical Cataract, Mona Ganey (DSU) Discharge Orders Discharge Orders: Discharge Order (Routine); Ordered 04/22/22 Ordered By: Garth Doherty DS: Diagnosis Discharge Diagnosis (1) Nuclear sclerotic cataract of right eye: Status: Resolved (2) Posterior subcapsular age-related cataract, right eye: Status: Resolved
--- NOTE | 2022-04-22 11:48 | W.PM.OP ---
Date of service: 04/22/22 Time of Service: 11:48 Operative Note Operative Note DATE OF PROCEDURE: 04/22/22 PRE-OP DIAGNOSIS: Nuclear/posterior subcapsular cataract, right eye POST-OP DIAGNOSIS: same PROCEDURE: Cataract extraction using phacoemulsification with intraocular lens implant, left eye SURGEON: Garth Doherty ANESTHESIA TYPE: Local By Surgeon and MAC Refer to Anesthesia Record PATHOLOGY: none sent COMPLICATIONS: None Patient was transported to: same day Patient's condition: stable Implants: Alvaro and Alvaro Tecnis Eyhance [id number] Indications: Progressive decreased vision due to cataract, left eye Procedure Description: CATARACT SURGERY OPERATIVE REPORT PREOPERATIVE DIAGNOSIS: 1. Nuclear/posterior subcapsular cataract, right eye POSTOPERATIVE DIAGNOSIS: Same OPERATION: 1. Cataract extraction using phacoemulsification with posterior chamber intraocular lens implant, left eye. IOL: IOL Drilling Assistant/Model: Alvaro & Alvaro Tecnis Eyhance [id number] IOL Power: + 17.5 diopters IOL Serial Number: [id number] Optic Diameter: 6.0 mm Haptic/Overall Diameter: 13.0 mm PHACO INFO: Reid Conversion Logicurion Vision System with OZil and Active Fluidics Cumulative Dispersed Energy (CDE): 15.97 seconds SURGEON: Garth Doherty MD, MARCIN ANESTHESIA: Monitored A [facility] (MAC), with local sub-tenon's anesthetic infiltration COMPLICATIONS: None SPECIMENS: None INDICATIONS FOR PROCEDURE: The patient is a 76-year-old lady with history of diminished visual acuity in both eyes secondary to the development of bilateral cataract. She has already undergone cataract surgery in the left eye on 04/01/2022 and is doing well postoperatively. She now presents for cataract surgery in the right eye. PROCEDURE: The correct surgical eye was identified and marked as the left eye and the pupil was dilated in the preoperative area using mydriatics and cycloplegics. The dilated pupil size was 7.0 mm. The patient elected to proceed without oral sedation. The patient was brought to the operating room where cardiopulmonary monitoring was instituted and surgical time-out was performed, confirming the correct operative eye and IOL power. Topical anesthesia was administered and ophthalmic povidone-iodine 5% was instilled into the conjunctival fornices. Lidocaine gel was applied to the cornea and the ze-ocular area was prepped with Betadine 10% solution and draped in the usual sterile fashion for intraocular surgery, including an aperture drape. A Tegaderm transparent film dressing was cut in half and used to cover the lashes and lid margins. Care was taken to sequester the lashes and lid margins under the Tegaderm dressing. A lid speculum was placed between the lids of the operative eye and the Reid LuxOR Revalia operating microscope was maneuvered into position. Chanelle scissors were then used to make a conjunctival buttonhole approximately 6mm posterior to the limbus in the inferonasal quadrant. Blunt dissection was carried out to expose bare sclera, and a blunt-tipped sub-tenon?s anesthesia cannula was introduced and passed posteriorly along the globe where non-preserved plain lidocaine was injected into posterior sub-Tenon?s space. A sideport knife was used to make a paracentesis port superiorly/superiortemporally. Intraocular phenylephrine/lidocaine was injected int the anterior chamber.. The anterior chamber was filled with viscoelastic. A keratome knife was used to construct a 2-plane near-clear corneal tunnel extending 2.0mm into clear cornea temporally. A flap was raised on the anterior capsule and capsulorhexis forceps were used to complete a continuous curvilinear capsulorhexis of 5.0 mm. Balanced salt solution was then used to perform cortical cleaving hydrodissection and nuclear hydrodelineation until the lens could be freely rotated within the capsular bag. The lens nucleus was then disassembled and removed within the capsular bag and iris plane using phacoemulsification. Residual cortical material was removed using the 45-degree angled silicone I/A tip with 0.3mm port. The posterior capsule was carefully polished to remove as much residual lens epithelial cells as safely possible. The capsular bag was then inflated and the anterior chamber deepened with viscoelastic. The lens implant described above was inserted into the capsular bag using the Alvaro and Alvaro Simplicity pre-loaded injector. . A Kuglen hook was used to dial the IOL into position. Residual viscoelastic was then removed first from posterior to the IOL, then from the anterior chamber using the I/A handpiece. The lens implant was noted to center nicely within the capsular bag. The incisions were stromally hydrated, and the anterior chamber was reformed using BSS. Then 0.5cc of moxifloxacin 1.0mg/ml were injected into the capsular bag and anterior chamber. The incisions were checked with a Weck spear and found to be secure. Several drops of ophthalmic povidone-iodine 5% were then applied to the eye followed by two drops of Imprimis combination prednisolone/moxifloxacin/nepafenac solution. The drapes were removed and a clear plastic protective eye shield was placed over the eye. The patient was then returned to Same Day Surgery in stable condition.
--- NOTE | 2022-04-22 11:59 | W.ANESPOSTOP ---
Postoperative Evaluation Date, Time and Location Date Performed: 04/22/22 Time Performed: 11:59 Patient Location: Day Surgery Unit Vital Signs Most Recent Imported Vital Signs: Most Recent Vital Signs Temp Pulse Resp BP Pulse Ox 36.4 C L 74 16 146/94 H 96 04/22/22 11:45 04/22/22 11:45 04/22/22 11:45 04/22/22 11:45 04/22/22 11:45 Pain Score Most Recent Pain Score: Most Recent Pain Score Pain Level 0 04/22/22 11:45 Assessment Mental Status: Awake (Alert & Oriented to Patient Baseline) Airway and Respiratory Function: Patent airway with normal (patient baseline) respiratory exam Cardiovascular Function: Hemodynamically Stable Hydration Status: Adequately Hydrated Nausea & Vomiting: No Nausea or Vomiting Pain: Pt. Denies Any Pain Peripheral Nerve Block: Patient did not receive a nerve block
== END 2022-04-22 12:10 | disposition home or self-care (01) ==
LOC: SUR 09:37
PROVIDERS: PCP Nurse Practitioner Family; Visit Provider Ophthalmology
PROC: (CPT 66984; principal; 2022-04-22 11:15)
DX: H25.041 Posterior subcapsular polar age-related cataract, right eye (principal)
CPT/HCPCS: 66984; V2632

== ENCOUNTER 2022-06-23 08:36 | Outpatient (RCR) | payer MEDICARE, SELFPAY ==
[2022-06-23 08:47] LABS: Abs Immature Grans 0.03 10^3/uL (0.0-0.06); Absolute Basophil Count 0.18 10^3/uL (0.0-0.2); Absolute Eosinophil Count 0.18 10^3/uL (0.0-0.7); Absolute Lymphocyte Count 1.23 10^3/uL (1.2-3.4); Absolute Neutrophil Count 6.52 10^3/uL (1.2-6.7); Basophils % 2.1; Eosinophils % 2.1; HCT 41.5 % (36.0-46.0); HGB 13.1 g/dL (11.2-15.7); Immature Grans % 0.3; Lymphocytes % 14.1; MCH 24.8 pg (27.0-33.0); MCHC 31.6 % (32.0-36.0); MCV 78 fL (80-95); MPV 9.6 fL (8.0-11.0); Monocytes % 6.9; Neutrophils % 74.5; Platelet Count 640 10^3/uL (130-400); RBC 5.29 10^6/uL (3.93-5.22); RDW 17.4 % (11.7-14.6); RDW-SD 47.8 fL; WBC 8.74 10^3/uL (4.4-10.8)
[2022-06-23 09:01] LABS: ALT 18 U/L (14-59); AST 17 U/L (15-37); Albumin 3.5 g/dL (3.4-5.0); Alkaline Phosphatase 76 U/L (46-116); Anion Gap 10.5 mmol/L (3-11); BUN 18 mg/dL (7-18); Bilirubin, Total 0.5 mg/dL (0.2-1.0); CO2 28.5 mmol/L (21.0-32.0); Chloride 99 mmol/L (98-107); Estimated GFR 58.75 (mL/min/1.73m2); Glucose 164 mg/dL (74-106); Potassium 3.8 mmol/L (3.5-5.1); Sodium 138 mmol/L (136-145); Total Protein 7.9 g/dL (6.4-8.2)
== END 2022-07-13 23:59 | disposition home or self-care (01) ==
LOC: INF 08:36
PROVIDERS: PCP Nurse Practitioner Family; Visit Provider Internal Medicine Hematology & Oncology
DX: D45 Polycythemia vera (principal)
CPT/HCPCS: 36415; 80053; 85025

== ENCOUNTER → 2022-07-25 08:54 | Outpatient (BNVA) | payer MEDICARE, SELFPAY | PROVIDERS: PCP Nurse Practitioner Family; Referring Provider Nurse Practitioner Family | DX: M17.11 Unilateral primary osteoarthritis, right knee (principal) | CPT/HCPCS: 20610; J1040 ==

== ENCOUNTER 2022-10-12 02:03 | Outpatient (CLI) | payer MEDICARE, SELFPAY ==
[2022-10-12 09:17] LABS: Abs Immature Grans 0.03 10^3/uL (0.0-0.06); Absolute Basophil Count 0.14 10^3/uL (0.0-0.2); Absolute Eosinophil Count 0.15 10^3/uL (0.0-0.7); Absolute Lymphocyte Count 1.11 10^3/uL (1.2-3.4); Absolute Monocyte Count 0.64 10^3/uL (0.1-0.8); Absolute Neutrophil Count 7.41 10^3/uL (1.2-6.7); Basophils % 1.5; Eosinophils % 1.6; HCT 40.4 % (36.0-46.0); HGB 12.9 g/dL (11.2-15.7); Immature Grans % 0.3; Lymphocytes % 11.7; MCH 25.5 pg (27.0-33.0); MCHC 31.9 % (32.0-36.0); MCV 80 fL (80-95); MPV 9.6 fL (8.0-11.0); Monocytes % 6.8; Neutrophils % 78.1; Platelet Count 522 10^3/uL (130-400); RBC 5.05 10^6/uL (3.93-5.22); RDW 17.5 % (11.7-14.6); RDW-SD 49.9 fL; WBC 9.48 10^3/uL (4.4-10.8)
[2022-10-12 10:00] LABS: ALT 17 U/L (14-59); AST 17 U/L (15-37); Albumin 3.6 g/dL (3.4-5.0); Alkaline Phosphatase 76 U/L (46-116); Anion Gap 8.8 mmol/L (3-11); BUN 20 mg/dL (7-18); Bilirubin, Total 0.5 mg/dL (0.2-1.0); CO2 32.2 mmol/L (21.0-32.0); CREATININE 1.4 mg/dL (0.55-1.02); Calcium 9.2 mg/dL (8.5-10.1); Chloride 95 mmol/L (98-107); Estimated GFR 39.23 (mL/min/1.73m2); Glucose 108 mg/dL (74-106); Potassium 3.5 mmol/L (3.5-5.1); Sodium 136 mmol/L (136-145); Total Protein 7.8 g/dL (6.4-8.2)
== END 2022-10-12 02:04 | disposition home or self-care (01) ==
PROVIDERS: PCP Nurse Practitioner Family; Visit Provider Internal Medicine Hematology & Oncology
DX: D45 Polycythemia vera (principal)
CPT/HCPCS: 36415; 80053; 85025

== ENCOUNTER → 2022-10-26 01:40 | Outpatient (CLI) | payer MEDICARE, SELFPAY ==
--- NOTE | 2022-10-26 | DI.RAD_ITS ---
Exam(s) XR ANKLE LT COMPLETE EXAM: XR ANKLE LT COMPLETE CLINICAL HISTORY: LT ANKLE PAIN, M25.572 TECHNIQUE: 2D digital imaging was performed. Three views. COMPARISON: CR RIGHT ANKLE COMPLETE from 04/02/2008 FINDINGS: BONES: No acute fracture is present. No bony destructive lesion is seen. No talar dome defect. JOINTS:The ankle mortise is normally aligned. Mild tibial talar joint space narrowing. No signific ant periarticular spurring. SOFT TISSUE: Lower leg edema. IMPRESSION: Mild degenerative changes. DATA REPOSITORY: RADIATION DOSE DELIVERED:
== END ==
PROVIDERS: PCP Nurse Practitioner Family; Visit Provider Nurse Practitioner Family
DX: M25.572 Pain in left ankle and joints of left foot (principal)
CPT/HCPCS: 73610

== ENCOUNTER 2022-10-27 12:16 | Outpatient (CLI) | payer MEDICARE, SELFPAY ==
--- NOTE | 2022-10-27 10:15 | DI.RAD_ITS ---
Exam(s) XR HIP RT COMPLETE AP PELVIS EXAM: XR HIP RT COMPLETE AP PELVIS CLINICAL HISTORY: right hip pain. TECHNIQUE: 2D digital imaging was performed. Two views COMPARISON: CR XR DEXA BONE DENSITY W/WO EDGAR from 10/20/2020 FINDINGS: BONES: No acute fracture is present. No bony destructive lesion is seen. JOINTS: No dislocation present. Mild bilateral acetabular spurring, left greater than right. Mild spurring from the margins of the femoral heads, left greater than right hip joint spaces are maintain ed. SI joints are unremarkable.. SOFT TISSUE: Normal. IMPRESSION: Mild degenerative changes the hips. DATA REPOSITORY: RADIATION DOSE DELIVERED:
== END 2022-10-27 12:17 | disposition home or self-care (01) ==
LOC: DIORS 12:16
PROVIDERS: PCP Nurse Practitioner Family; Referring Provider Nurse Practitioner Family
DX: M16.11 Unilateral primary osteoarthritis, right hip
CPT/HCPCS: 20610; 73502; J1040

== ENCOUNTER → 2022-11-01 12:50 | Outpatient (BNVA) | payer MEDICARE, SELFPAY | PROVIDERS: PCP Nurse Practitioner Family; Referring Provider Nurse Practitioner Family | DX: M16.11 Unilateral primary osteoarthritis, right hip (principal) | CPT/HCPCS: 99213 ==

== ENCOUNTER → 2023-01-27 08:44 | Outpatient (BNVA) | payer MEDICARE, SELFPAY | PROVIDERS: PCP Nurse Practitioner Family; Referring Provider Nurse Practitioner Family | DX: M17.11 Unilateral primary osteoarthritis, right knee (principal) | CPT/HCPCS: 20610; J1040 ==

== ENCOUNTER → 2023-04-26 03:10 | Outpatient (CLI) | payer MEDICARE, SELFPAY ==
--- NOTE | 2023-04-26 | DI.MAMMO_ITS ---
Exam(s) MAMMO SCREENING EXAM: MAMMO SCREENING CLINICAL HISTORY: Z12.31 Screening mammogram for malig neoplasm of breast TECHNIQUE: Bilateral full field digital CC and MLO mammographic images were obtained with 3D tomosyn thesis and utilizing computer aided detection (CAD). COMPARISON: Available for comparison. FINDINGS: Masses/Architectural Distortion: None seen. Microcalcifications: No suspicious pleomorphic-type are seen. Skin Thickening/Nipple Retraction: None. IMPRESSION: 1. No significant interval change with no specific features of malignancy noted. 2. Unless there is more urgent need, screening mammography is recommended, as per [employer] guidelines. BI-RADS Category 1 - Negative Breast Density - Category B - Scattered areas of fibroglandular density Breast density category C or D implies that the patient has dense breast tissue. Dense breast tissue is very common and is not abnormal but dense breast tissue can make it harder to find cancer on a ma mmogram. Also, dense breast tissue may increase their breast cancer risk. This information about the result of the mammogram report was provided to the patient to raise their awareness. Use this report when you speak with the patient about their risks for breast cancer, which includes their family hist ory. At that time, you may recommend for more screening tests (Ultrasound or MRI) as they might be us eful based on their risk. A negative radiographic report should not delay biopsy if a dominant or clinically suspicious mass is present. Up to ten percent of cancers are not identified on mammography. A negative report may reinforce clinical impression. Adenosis and dense breasts may obscure an underlying neoplasm. False positive reports average 6 to 10%. Patient will receive a letter notifying them of these results.
== END ==
PROVIDERS: PCP Nurse Practitioner Family; Visit Provider Nurse Practitioner Family
DX: Z12.31 Encounter for screening mammogram for malignant neoplasm of breast (principal)
CPT/HCPCS: 77063; 77067

== ENCOUNTER → 2023-05-01 10:36 | Outpatient (BNVA) | payer MEDICARE, SELFPAY | PROVIDERS: PCP Nurse Practitioner Family; Referring Provider Nurse Practitioner Family | DX: M17.11 Unilateral primary osteoarthritis, right knee (principal) | CPT/HCPCS: 20610; J1040 ==

== ENCOUNTER 2023-05-04 05:37 | Outpatient (CLI) | payer MEDICARE, SELFPAY ==
[2023-05-04 12:06] LABS: Abs Immature Grans 0.04 10^3/uL (0.0-0.06); Absolute Basophil Count 0.08 10^3/uL (0.0-0.2); Absolute Eosinophil Count 0.11 10^3/uL (0.0-0.7); Absolute Lymphocyte Count 1.29 10^3/uL (1.2-3.4); Absolute Monocyte Count 0.73 10^3/uL (0.1-0.8); Absolute Neutrophil Count 6.25 10^3/uL (1.2-6.7); Basophils % 0.9; Eosinophils % 1.3; HGB 13.9 g/dL (11.2-15.7); Immature Grans % 0.5; Lymphocytes % 15.2; MCH 27.8 pg (27.0-33.0); MCHC 31.6 % (32.0-36.0); MCV 88 fL (80-95); MPV 9.3 fL (8.0-11.0); Monocytes % 8.6; Neutrophils % 73.5; Platelet Count 558 10^3/uL (130-400); RDW 15.2 % (11.7-14.6); RDW-SD 48.8 fL
[2023-05-04 12:24] LABS: ALT 20 U/L (14-59); AST 22 U/L (15-37); Albumin 3.7 g/dL (3.4-5.0); Alkaline Phosphatase 73 U/L (46-116); Anion Gap 8.9 mmol/L (3-11); BUN 26 mg/dL (7-18); Bilirubin, Total 0.4 mg/dL (0.2-1.0); CO2 33.1 mmol/L (21.0-32.0); CREATININE 1.3 mg/dL (0.55-1.02); Calcium 9.6 mg/dL (8.5-10.1); Chloride 99 mmol/L (98-107); Estimated GFR 42.62 (mL/min/1.73m2); Glucose 103 mg/dL (74-106); Potassium 3.5 mmol/L (3.5-5.1); Sodium 141 mmol/L (136-145); Total Protein 7.9 g/dL (6.4-8.2)
== END 2023-05-04 05:38 | disposition home or self-care (01) ==
PROVIDERS: PCP Nurse Practitioner Family; Visit Provider Internal Medicine Hematology & Oncology
DX: D45 Polycythemia vera (principal)
CPT/HCPCS: 36415; 80053; 85025

== ENCOUNTER 2023-07-31 14:42 | Outpatient (CLI) | payer MEDICARE, SELFPAY ==
--- NOTE | 2023-07-31 10:00 | DI.RAD_ITS ---
Exam(s) XR KNEE RT 3V AP,LAT,KP EXAM: XR KNEE RT 3V AP,LAT,KP CLINICAL HISTORY: OA R KNEE. TECHNIQUE: 2D digital imaging was performed. Three views. COMPARISON: No exams were available for comparison FINDINGS: BONES: No acute fracture is present. No bony destructive lesion is seen. JOINTS: There is severe narrowing of the patellofemoral joint with prominent periarticular spurring. There is moderate to severe narrowing of the lateral femoral tibial joint joint space also with ze articular spurring. Femoral tibial joint space is maintained. No joint effusion is seen. SOFT TISSUE: Normal. 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
== END 2023-07-31 14:43 | disposition home or self-care (01) ==
LOC: DIORS 14:42
PROVIDERS: PCP Nurse Practitioner Family; Referring Provider Nurse Practitioner Family
DX: M17.11 Unilateral primary osteoarthritis, right knee (principal)
CPT/HCPCS: 20610; 73562; J1010

== ENCOUNTER 2023-09-21 01:50 | Outpatient (CLI) | payer MEDICARE, SELFPAY ==
[2023-09-21 09:44] LABS: Abs Immature Grans 0.02 10^3/uL (0.0-0.06); Absolute Basophil Count 0.12 10^3/uL (0.0-0.2); Absolute Eosinophil Count 0.08 10^3/uL (0.0-0.7); Absolute Lymphocyte Count 0.89 10^3/uL (1.2-3.4); Absolute Monocyte Count 0.52 10^3/uL (0.1-0.8); Absolute Neutrophil Count 5.62 10^3/uL (1.2-6.7); Basophils % 1.7 %; Eosinophils % 1.1 %; HCT 43.9 % (36.0-46.0); HGB 13.9 g/dL (11.2-15.7); Immature Grans % 0.3 %; Lymphocytes % 12.3 %; MCH 27.3 pg (27.0-33.0); MCHC 31.7 % (32.0-36.0); MCV 86 fL (80-95); MPV 9.4 fL (8.0-11.0); Monocytes % 7.2 %; Neutrophils % 77.4 %; Platelet Count 393 10^3/uL (130-400); RDW-SD 49.5 fL; WBC 7.25 10^3/uL (4.4-10.8)
[2023-09-21 09:58] LABS: ALT 17 U/L (14-59); AST 18 U/L (15-37); Alkaline Phosphatase 79 U/L (46-116); Anion Gap 9.1 mmol/L (3-11); BUN 17 mg/dL (7-18); Bilirubin, Total 0.56 mg/dL (0.2-1.0); CO2 33.9 mmol/L (21.0-32.0); CREATININE 1.6 mg/dL (0.55-1.02); Calcium 9.7 mg/dL (8.5-10.1); Chloride 95 mmol/L (98-107); Estimated GFR 33.22 (mL/min/1.73m2); Glucose 120 mg/dL (74-106); Potassium 3.4 mmol/L (3.5-5.1); Sodium 138 mmol/L (136-145); Total Protein 8.1 g/dL (6.4-8.2)
== END 2023-09-21 01:51 | disposition home or self-care (01) ==
LOC: LBO 01:50
PROVIDERS: PCP Nurse Practitioner Family; Visit Provider Internal Medicine Hematology & Oncology
DX: D45 Polycythemia vera (principal)
CPT/HCPCS: 36415; 80053; 85025

== ENCOUNTER → 2023-10-30 09:36 | Outpatient (BNVA) | payer MEDICARE, SELFPAY | PROVIDERS: PCP Nurse Practitioner Family; Referring Provider Nurse Practitioner Family; Visit Provider Student in an Organized Health Care Education/Training Program | DX: M17.11 Unilateral primary osteoarthritis, right knee (principal) | CPT/HCPCS: 20610; J1010 ==

== ENCOUNTER 2023-11-08 01:54 | Outpatient (CLI) | payer MEDICARE, SELFPAY ==
--- NOTE | 2023-11-08 | DI.DEXA_ITS ---
Exam(s) XR DEXA BONE DENSITY W/WO EDGAR EXAM: XR DEXA BONE DENSITY W/WO EDGAR CLINICAL HISTORY: Senile osteoporosis, M81.0, age-related wo current pathological fx TECHNIQUE: Routine DEXA evaluation of the lumbar spine, hip, or forearm. COMPARISON: Prior DEXA scan October 2020 FINDINGS: Performed on a [employer] unit. Lateral image: No compression fracture evident. Lumbar Spine total T-score: -9.1. Prior reading 3 years ago was -2.1 Hip total T-score:-2.3. Prior reading 3 years ago was -2.5 Independent reading at the level of the femoral neck yields T-score of -1.9 Forearm total T-score: -1.8 IMPRESSION: Bone mineral density measures in the osteopenia range. Fracture risk is moderate. Note: Any spine fracture indicates 5x risk for subsequent spine fracture and 2x risk for subsequent h ip fracture. World Health Organization criteria for BMD interpretation classify patients: Normal...... T- Score at or above -1.0 Osteopenic... T- Score between -1.0 and -2.5 Osteoporosis... T-Score at or below -2.5
== END 2023-11-08 02:14 ==
LOC: DI 01:54
PROVIDERS: PCP Nurse Practitioner Family; Visit Provider Nurse Practitioner Family
DX: M81.0 Age-related osteoporosis without current pathological fracture (principal); Z13.820 Encounter for screening for osteoporosis
CPT/HCPCS: 77080

== ENCOUNTER → 2024-01-29 09:30 | Outpatient (BNVA) | payer MEDICARE, SELFPAY | PROVIDERS: PCP Nurse Practitioner Family; Referring Provider Nurse Practitioner Family; Visit Provider Student in an Organized Health Care Education/Training Program | DX: M17.11 Unilateral primary osteoarthritis, right knee (principal) | CPT/HCPCS: 20610; J1010 ==

== ENCOUNTER 2024-03-20 00:58 | Outpatient (CLI) | payer MEDICARE, SELFPAY ==
[2024-03-20 07:54] LABS: Abs Immature Grans 0.01 10^3/uL (0.0-0.06); Absolute Eosinophil Count 0.23 10^3/uL (0.0-0.7); Absolute Lymphocyte Count 0.91 10^3/uL (1.2-3.4); Absolute Monocyte Count 0.43 10^3/uL (0.1-0.8); Absolute Neutrophil Count 2.86 10^3/uL (1.2-6.7); Basophils % 2.2 %; Eosinophils % 5.1 %; HGB 12.9 g/dL (11.2-15.7); Immature Grans % 0.2 %; MCH 27.6 pg (27.0-33.0); MCHC 30.7 % (32.0-36.0); MCV 90 fL (80-95); MPV 9.4 fL (8.0-11.0); Monocytes % 9.5 %; Platelet Count 366 10^3/uL (130-400); RBC 4.68 10^6/uL (3.93-5.22); RDW 15.7 % (11.7-14.6); RDW-SD 50.6 fL; WBC 4.54 10^3/uL (4.4-10.8)
[2024-03-20 08:12] LABS: ALT 18 U/L (14-59); AST 19 U/L (15-37); Albumin 3.5 g/dL (3.4-5.0); Alkaline Phosphatase 65 U/L (46-116); Anion Gap 9.4 mmol/L (3-11); BUN 14 mg/dL (7-18); Bilirubin, Total 0.72 mg/dL (0.2-1.0); CO2 30.6 mmol/L (21.0-32.0); CREATININE 1.3 mg/dL (0.55-1.02); Calcium 9.4 mg/dL (8.5-10.1); Chloride 104 mmol/L (98-107); Estimated GFR 42.35 (mL/min/1.73m2); Glucose 109 mg/dL (74-106); Potassium 4.1 mmol/L (3.5-5.1); Sodium 144 mmol/L (136-145); Total Protein 7.4 g/dL (6.4-8.2)
== END 2024-03-20 00:59 | disposition home or self-care (01) ==
LOC: LBO 00:58
PROVIDERS: PCP Nurse Practitioner Family; Visit Provider Internal Medicine Hematology & Oncology
DX: D45 Polycythemia vera (principal)
CPT/HCPCS: 36415; 80053; 85025

== ENCOUNTER → 2024-04-29 09:19 | Outpatient (BNVA) | payer MEDICARE, SELFPAY | PROVIDERS: PCP Nurse Practitioner Family; Visit Provider Student in an Organized Health Care Education/Training Program | DX: M17.11 Unilateral primary osteoarthritis, right knee (principal) | CPT/HCPCS: 20610; 99213; J1010 ==

== ENCOUNTER → 2024-07-29 09:23 | Outpatient (BNVA) | payer MEDICARE, SELFPAY | PROVIDERS: PCP Student in an Organized Health Care Education/Training Program; Referring Provider Student in an Organized Health Care Education/Training Program; Visit Provider Student in an Organized Health Care Education/Training Program | DX: M17.11 Unilateral primary osteoarthritis, right knee (principal) | CPT/HCPCS: 20610; J1010 ==

== ENCOUNTER 2024-08-28 02:06 | Outpatient (CLI) | payer MEDICARE, SELFPAY ==
--- NOTE | 2024-08-28 | DI.MAMMO_ITS ---
Exam(s) MAMMO SCREENING EXAM: MAMMO SCREENING CLINICAL HISTORY: SCREENING, Z12.31,ANNUAL TECHNIQUE: Bilateral full field digital CC and MLO mammographic images were obtained with 3D tomosynthesis and utilizing computer aided detection (CAD). COMPARISON: Comparison is made with prior examinations. FINDINGS: Masses/Architectural Distortion: No suspicious masses or areas of architectural distortion are present. Microcalcifications: No suspicious pleomorphic-type are seen. Skin Thickening/Nipple Retraction: None. IMPRESSION: 1. No significant interval change with no specific features of malignancy noted. 2. Unless there is more urgent need, screening mammography is recommended, as per [employer] guidelines. BI-RADS Category 1 - Negative Breast Density - Category B - There are scattered areas of fibroglandular density. Breast density Category C or D implies that the patient has dense breast tissue. Dense breast tissue can make it harder to find cancer on a mammogram. Dense breast tissue is also associated with an increased risk of breast cancer. This information about the result of the mammogram report was provided to the patient to raise their awareness. Use this report when you speak with the patient about their risks for breast cancer, which includes their family history. At that time, you may recommend additional screening tests (Ultrasound or MRI) as these tests may add significant information. A negative radiographic report should not delay biopsy if a dominant or clinically suspicious mass is present. Up to ten percent of cancers are not identified on mammography. A negative report may reinforce clinical impression. Adenosis and dense breasts may obscure an underlying neoplasm. False positive reports average 6 to 10%. Patient will receive a letter notifying them of these results.
== END 2024-08-28 02:26 ==
LOC: DI 02:06
PROVIDERS: PCP Student in an Organized Health Care Education/Training Program; Visit Provider Student in an Organized Health Care Education/Training Program
DX: Z12.31 Encounter for screening mammogram for malignant neoplasm of breast (principal); R92.323 Mammographic fibroglandular density, bilateral breasts
CPT/HCPCS: 77063; 77067

== ENCOUNTER → 2024-09-04 14:13 | Outpatient (BNVA) | payer MEDICARE, SELFPAY | PROVIDERS: PCP Student in an Organized Health Care Education/Training Program; Referring Provider Student in an Organized Health Care Education/Training Program; Visit Provider Surgery | DX: Z12.11 Encounter for screening for malignant neoplasm of colon (principal); Z80.0 Family history of malignant neoplasm of digestive organs; Z86.0101 Personal history of adenomatous and serrated colon polyps | CPT/HCPCS: S0285 ==

== ENCOUNTER 2024-09-18 10:51 | Outpatient (CLI) | payer MEDICARE, SELFPAY ==
[2024-09-18 11:21] LABS: Abs Immature Grans 0.01 10^3/uL (0.0-0.06); HCT 41.5 % (36.0-46.0); HGB 13.1 g/dL (11.2-15.7); Immature Grans % 0.1 %; MCH 28.7 pg (27.0-33.0); MCHC 31.6 % (32.0-36.0); MCV 91 fL (80-95); MPV 9.6 fL (8.0-11.0); Platelet Count 364 10^3/uL (130-400); RBC 4.56 10^6/uL (3.93-5.22); RDW 14.9 % (11.7-14.6); RDW-SD 49.5 fL; WBC 7.63 10^3/uL (4.4-10.8)
[2024-09-18 11:48] LABS: ALT 18 U/L (14-59); AST 17 U/L (15-37); Albumin 3.8 g/dL (3.4-5.0); Alkaline Phosphatase 77 U/L (46-116); Anion Gap 8.8 mmol/L (3-11); BUN 11 mg/dL (7-18); Bilirubin, Total 0.5 mg/dL (0.2-1.0); CO2 29.2 mmol/L (21.0-32.0); Calcium 9.4 mg/dL (8.5-10.1); Chloride 101 mmol/L (98-107); Estimated GFR 51.75 (mL/min/1.73m2); Glucose 104 mg/dL (74-106); Potassium 3.9 mmol/L (3.5-5.1); Sodium 139 mmol/L (136-145); Total Protein 7.6 g/dL (6.4-8.2)
== END 2024-09-18 10:52 | disposition home or self-care (01) ==
LOC: LBO 10:51
PROVIDERS: PCP Student in an Organized Health Care Education/Training Program; Visit Provider Nurse Practitioner Family
DX: D45 Polycythemia vera (principal)
CPT/HCPCS: 36415; 80053; 85025

== ENCOUNTER 2024-10-21 07:45 | Day surgery (SDC) | payer MEDICARE, SELFPAY ==
[2024-10-21 08:16] VITALS: BP 162/79; PULSE 73; RESP 16; TEMP 36.8; O2SAT 99
[2024-10-21] MEDS: Lactated Ringers 1,000 ML 80 ML IV (08:35)
--- NOTE | 2024-10-21 08:43 | W.ANESPRE ---
General Info Date of Service Date Performed: 10/21/24 Height: 5 ft 7 in Weight: 75.8 kg Body Mass Index (BMI): 26.2 Surgical Procedure: Operation Date: 10/21/24 09:05 Proposed Procedure Side Surgeon tanner Mcclure MD Meds Allergies and Home Medications Allergies Allergy/AdvReac Type Severity Reaction Status Date / Time Penicillins Allergy Mild Hives Verified 10/21/24 08:16 atorvastatin calcium (From AdvReac Intermediate INCREASE Verified 10/21/24 08:16 Lipitor) IN CPK Anesthetic used during AdvReac Severe NAUSEA/VOMI Uncoded 10/21/24 08:16 hysterectomy TING Home Medication ?Medication ?Instructions ?Recorded Aspirin 1 tab PO DAILY 05/25/12 cholecalciferol (vitamin D3) 50 100 mcg PO DAILY 05/04/21 mcg (2,000 unit) capsule hydroxyurea 500 mg capsule 500 mg PO DAILY 05/04/21 ibandronate 150 mg tablet (Boniva) 150 mg PO QMONTH 05/04/21 rosuvastatin 20 mg tablet 20 mg PO DAILY 05/04/21 valsartan 40 mg tablet 40 mg PO QHS 05/04/21 metronidazole 1 % topical gel 1 applic topical DAILY 04/29/24 omeprazole 20 mg capsule,delayed 20 mg PO DAILY 09/04/24 release Current Visit Medications: Current Medications Generic Name Dose Route Start Last Admin Trade Name Freq PRN Reason Stop Dose Admin Ringer's Solution 1,000 mls @ 80 mls/hr 10/21/24 06:00 10/21/24 08:35 IV 11/17/24 23:59 80 mls/hr INFUSION MATTHEW Administration IV Miscellaneous Supplies 1 each 10/21/24 06:00 Iv Access IV 11/17/24 23:59 DIRECTED MATTHEW Sodium Biphosphate/Sodium Phosphate 133 ml 10/21/24 06:00 Na Phosphate Enema-Adult 133 Ml Btl VT 11/17/24 23:59 DIRECTED PRN Sodium Chloride 0 ml 10/21/24 06:00 Normal Saline Flush 10 Ml Syr IV 11/17/24 23:59 PRN PRN Sodium Chloride 0 ml 10/21/24 06:00 Normal Saline 10 Ml Vial IJ 11/17/24 23:59 DIRECTED PRN Sterile Water 0 ml 10/21/24 06:00 Water,Injection,Sterile 10 Ml Vial IJ 11/17/24 23:59 DIRECTED PRN PFSH Active Problems Active Problems: Problem Status Onset Code Osteoarthritis of right hip Acute M16.11 Essential hypertension Chronic GERD Chronic History of adenomatous polyp of colon Acute Z86.010 Recurrent UTI Acute N39.0 Obesity Chronic E66.9 Tubular adenoma Acute ~05/2020 D36.9 Chest pain Resolved R07.9 Palpitations Resolved R00.2 Coronary artery disease Chronic I25.10 Prediabetes Acute R73.03 Arthritis of right knee Chronic M17.11 Nuclear age-related cataract, left eye Resolved H25.12 Posterior subcapsular age-related cataract of left eye Resolved H25.042 Nuclear sclerotic cataract of right eye Resolved H25.11 Posterior subcapsular age-related cataract, right eye Resolved H25.041 Medical History Medical History Polycythemia vera tx with hydroxyurea, see's oncologist 4x/year, no radiation or chemo Chronic cough Thrombocytosis History of basal cell cancer Rosacea Hematuria IMPAIRED FASTING GLUCOSE Allergic rhinitis Osteopenia Hyperlipidemia Hypercholesterolemia Surgical History Surgical History Hx of cataract removal with insertion of prosthetic lens History of colonoscopy (~05/2020) Abdominal hysterectomy (04/21/98) Colonoscopy - IV Sedation (~2001) [facility] Tobacco Smoking/Tobacco Use Status: Former Tobacco Use Alcohol Alcohol Intake: current Alcohol intake frequency: 0-2 drinks per day Alcohol type: wine and hard liquor Substance Use Substance use: Never Substance use type: does not use Vital Signs and Lab Results Vital Signs Most Recent Vital Signs in EMR: Most Recent Vital Signs Temp Pulse Resp BP Pulse Ox 36.8 C 73 16 162/79 H 99 10/21/24 08:16 10/21/24 08:16 10/21/24 08:16 10/21/24 08:16 10/21/24 08:16 Imaging and Studies Imaging and Studies Study information below may be from another EMR and interpreted by another provider. Please see original notes in EMR for more complete details. EKG Summary: PATIENT NAME: Zarina Pitt #: [id number] ORDERING PROVIDER: Danny Haji #: [id number] PRIMARY CARE PROVIDER:RUSLAN ECHAVARRIA NP DATE/TIME OF SERVICE: 11/20/202233 : 1945PERFORMING LOCATION: [place] APPROVED REPORT Exam: Resting ECG Reason for Exam: palpitations Patient Location: E HR:105 bpm ECG Measurements Heart Rate 105 AXIS VT 194 P 28 QRSd 109 QRS -32 QT 362 T76 QTc 479 Conclusion Sinus tachycardia...rate> 99 Ventricular premature complex...V complex w/ short R-R interval LVH with secondary repolarization abnormality...multi-LVH criteria, abnrm ST-T Inferior infarct, old...Q >35mS, II III aVF Anterior infarct, old...Q >40mS, abnormal ST-T, V2-V5. Sinus. PVCs. LVH. No STEMI. I have reviewed and interpreted ECG and agree with software generated interpretation. Stress Test Summary: Patient Name: Zarina Pitt #: [id number]: DI Ordering Provider: Dandre Bender #: [id number]: REG CLI Primary Care Provider: Tatyana Echavarriaate of Exam: 11/24/20Sex: F Admission Date: 11/24/20 : 1945 Age: 74 APPROVED REPORT Exam: Pharmacologic paired with low level exercise Patient Location: Out-Patient Room/Bed: Ordering Provider:VIVIAN BENDER, Contact Number: [phone] BMI: 28.18 Baseline Rhythm: Sinus Rhythm Comment: T wave inversions present when standing Indications: CHEST PAIN Medical History Medical History: Palpitations, GERD, HTN, HLD, Osteoporosis, Basal cell carcinoma Cardiac Medications: Aspirin, Hydrochlorothiazide, Omeprazole, Simvastatin, Allergies: Penicillins, Atorvastatin Cardiac Risk Factors: HTN, Hyperlipidemia, FHX of CAD, Smoking (former) Previous Cardiac Procedures: None Pretest Chest Pain Characteristics: No chest pain Exercise History: Sedentary Physical Disabilities: None Lung Sounds: Clear to auscultation Heart Sounds: Regular Stress Test Details Test: Pharmacologic stress was paired with low level exercise. Reason for pharmacologic stress test: T wave inversions. Nuclear Acquisition: Rest Tc-99m/Stress Tc-99m 1 day Rest Isotope: Tc-99m Sestamibi. Dose: 12.0 Date: 11/24/2020 Injection Time: 0930 Stress Isotope: Tc-99m Sestamibi. Dose: 37.0 Date: 11/24/2020 Injection Time: 1133 HR Resting HR Supine: 78 bpmMax Heart Rate (APMHR): 147.335714 bpm Resting HR Standin bpmTarget HR (85% APMHR): 124.976207 bpm Max HR Achieved: 124 bpm % of APMHR: 84.35 Recovery HR: 90 bpm HR response to stress: Blunted HR response to stress BP Resting BP Supine: 142/80 mmHg Resting BP Standin/84 mmHg Max BP: 162/84 mmHg Recovery BP: 130/68 mmHg BP response to stress: Blunted blood pressure response to stress. ECG Resting ECG: Sinus Rhythm Ectopy: None Comment: T wave inversions in leads III, aVF, V3-V6 (when standing) Stress ECG: Sinus Tachycardia ST Change: No significant ST segment changes noted, , No significant ST segment changes noted, Horizontal ST depression, Upsloping ST depression, Downsloping ST depression, ST Elevation Arrhythmia: None Recovery ECG: Sinus Rhythm Recovery ST Change: No significant ST segment changes noted Recovery Arrhythmia: None Clinical Stress Symptoms: None Rate Pressure Product: 21438 Stress ECG Conclusion 1. Resting electrocardiogram showed sinus rhythm, old anterior wall myocardial infarction 2. Patient underwent pharmacologic stress paired wiith low-level exercise. Maximum METS achieved 2.15 3. Blunted hemodynamics. Peak heart rate achieved was 84% of predicted 4. Electrocardiographically the test was nondiagnostic due to resting ST-T abnormalities and an adequate heart rate Stress Test Summary STAGEHRBPSymptomsNOTES [id number]/80 1 min post Lexiscan [id number]/84 3 min post Lexiscan [id number]/84 6 min post Lexiscan bpqszrput55527/68 [id number]/84 Lexiscan injection paired w/ low level exercise, 1.5 mph, 0% grade. Patient experienced no symptoms from lexiscan injection. MPI Conclusion No evidence of myocardial infarction or ischemia EF 73% Echocardiogram Summary: Patient Name: Zarina Pitt #: [id number]: DI Ordering Provider: Dandre Bender #: [id number]: REG CLI Primary Care Provider: Shemar Echavarria of Exam: 12/02/20Sex: F Admission Date: 12/02/20 : 1945 Age: 74 APPROVED REPORT EXAM: Comprehensive 2D, Doppler, and color-flow Echocardiogram Patient Location: Out-Patient [employer] Farmer: Maria De Jesus Kolb RDCS (AE) Indications: Chest pain Other Information Study Quality: Adequate Conclusion Normal left ventricular wall thickness and chamber size. Estimated ejection fraction is 60 to 65%. There are no segmental wall motion abnormalities Normal right ventricular size and systolic function Both atria are normal in size There is no structural or hemodynamically significant valvular disease Estimated right ventricular systolic pressure is 37 mmHg Mildly dilated ascending aorta measuring 3.43 cm Wall motion Left Ventricle The left ventricle is normal size. The left ventricular systolic function is normal. The left ventricular ejection fraction is within the normal range. There is normal left ventricular wall thickness. There is normal LV segmental wall motion. There is no ventricular septal defect visualized. LVEF is 60-65%. Right Ventricle The right ventricle is normal size. The right ventricular systolic function is normal. The RVSP is 37.4mmHg. Atria Left atrium is moderately dilated. The right atrium size is normal. The interatrial septum is intact with no evidence for an atrial septal defect. Aortic Valve The aortic valve is normal in structure. There is no aortic valvular stenosis. No aortic regurgitation is present. Mitral Valve The mitral valve is normal in structure. No evidence of mitral valve stenosis. Trace mitral regurgitation. Tricuspid Valve The tricuspid valve is normal in structure. There is no tricuspid valve stenosis. Mild tricuspid regurgitation. Pulmonic Valve The pulmonary valve is normal in structure. There is no pulmonic valvular stenosis. Trace pulmonic regurgitation. Great Vessels The aortic root is normal in size. The ascending aorta is mildly dilated.3.43 cm Aortic arch is normal in caliber. IVC is normal in size and collapses >50% with inspiration. Pericardium There is no pericardial effusion. Pulmonary Function Summary: Pulmonary Function Test PATIENT NAME: Zarina Pitt #: [id number] ADMITTING PROVIDER: Gabby Ball M.D. PRIMARY CARE PROVIDER:JOSIAS FLOYD DATE OF ADMIT: 10/12/20 : 1945 Date of service: 10/12/20 Time of Service: 10:05 Pulmonary Function Test Result Requesting Provider Ruslan Echavarria Interpretation Spirometry: There is no airflow limitation present at baseline. There is a restrictive pattern to spirometry. Methacholine challenge testing was performed. This is a positive methacholine challenge test after administration of 8 mg/mL resulting in a 22% decrease in FEV1. Impression Positive methacholine challenge test. Clinical Correlation therefore is recommended. Anesthesia Assessment and Plan Anesthesia History Personal History: PONV Family History: No Family History of Anesthesia Complications Exercise Tolerance Exercise Tolerance: Metabolic Equivalents>4 (Previous stress test indicated low METs of 2.15. Patient reports good activity, denies cardiac issues. ) Pertinent Negatives Pertinent Negatives: No Major Cardiovascular Symptoms or Complaints and No Major Pulmonary Symptoms or Complaints Cardiac & Pulmonary Exam Cardiac Exam: Normal S1/S2 Heart Sounds Pulmonary Exam: Clear Bilateral Breath Sounds Implantable Cardiac Device Does patient have a Pacemaker or an ICD?: No Airway Exam Known Difficult Airway: No Mallampati Class: 2 Mouth Opening: Normal (> 3cm) Thyromental Distance: Greater than 3 cm Neck Range of Motion: Full ROM Neck Circumference: Normal Teeth Condition: Normal Dentition ASA Classification ASA Score: ASA 2 Emergency Case?: No NPO Status NPO Status: NPO Clears >2 hours, Solids >8 hours Anesthesia Plan Resuscitation Status: Full Code Anesthesia Technique: General Anesthesia Airway Planned: Natural Airway Monitors Used: Standard Monitors
[2024-10-21 08:47] VITALS: BMI 26.2
--- NOTE | 2024-10-21 09:24 | W.PM.HP.N ---
Date of service: 10/21/24 Time of Service: : Assessment and Plan Assessment and plan (1) History of adenomatous polyp of colon: Status: Acute Assessment and plan: Colonoscopy due now due to history of tubular adenomas. Last scope with 4 subcentimeter adenomas, but recommendation given to her was 3-5 years, will do now at 4 years. Daughter w colon cancer diagnosis in her 40s, first degree relative makes patient high risk for colorectal cancer. Exams to be repeated every 5 years or more frequently for high risk patient depending on findings. Discussed colonoscopy procedure risks, benefits, alternatives and expectations. Proceed today. (2) Family history of colon cancer: Status: Acute History of Present Illness Narrative: Here for colonoscopy due to history of adenoma polyps. Daughter with colon cancer in her 40s. No colorectal symptoms in patient presently, no anemia, no blood in stools, no change in bowel habits. no inflammatory bowel disease, no history of uterine or ovarian cancer. Review of Systems All systems reviewed & are unremarkable except as noted in HPI and below PFSH All Active Problems (Updated 10/21/24 @ 09:26 by Courtney Mcclure MD) Family history of colon cancer (Acute) Osteoarthritis of right hip (Acute) Essential hypertension (Chronic) GERD (Chronic) History of adenomatous polyp of colon (Acute) Recurrent UTI (Acute) Obesity (Chronic) Tubular adenoma (Acute ~05/2020) x4 Coronary artery disease (Chronic) Prediabetes (Acute) Arthritis of right knee (Chronic) DEPO MEDROL 07/25/22, 10/27/22; 01/27/23; 05/01/2023; 07/31/2023; 10/30/2023; 04/29/24; 07/29/24 Medical History Polycythemia vera tx with hydroxyurea, see's oncologist 4x/year, no radiation or chemo Chronic cough Thrombocytosis History of basal cell cancer Rosacea Hematuria IMPAIRED FASTING GLUCOSE Allergic rhinitis Osteopenia Hyperlipidemia Hypercholesterolemia Surgical History Hx of cataract removal with insertion of prosthetic lens History of colonoscopy (~05/2020) Abdominal hysterectomy (04/21/98) Colonoscopy - IV Sedation (~2001) [facility] Family History Mother Stroke Pulmonary embolism Father Heart disease Social History Smoking/Tobacco Use Status: Former Tobacco Use Quit Date: 02/13/69 Smoking risk assessment performed?: Yes Alcohol Intake: current Alcohol Intake frequency: 0-2 drinks per day Alcohol type: wine and hard liquor Drug use: Never Substance use type: does not use Do you feel safe at home: Yes Do you feel safe in your relationship?: Yes Meds Allergies and Home Medications Allergies Allergy/AdvReac Type Severity Reaction Status Date / Time Penicillins Allergy Mild Hives Verified 10/21/24 08:16 atorvastatin calcium (From AdvReac Intermediate INCREASE Verified 10/21/24 08:16 Lipitor) IN CPK Anesthetic used during AdvReac Severe NAUSEA/VOMI Uncoded 10/21/24 08:16 hysterectomy TING Home Medications ?Medication ?Instructions ?Recorded ?Confirmed ?Type Aspirin 1 tab PO DAILY 05/25/12 10/18/24 History cholecalciferol (vitamin D3) 50 100 mcg PO DAILY 05/04/21 10/21/24 History mcg (2,000 unit) capsule hydroxyurea 500 mg capsule 500 mg PO DAILY 05/04/21 10/21/24 History ibandronate 150 mg tablet (Boniva) 150 mg PO QMONTH 05/04/21 10/21/24 History rosuvastatin 20 mg tablet 20 mg PO DAILY 05/04/21 10/21/24 History valsartan 40 mg tablet 40 mg PO QHS 05/04/21 10/21/24 History metronidazole 1 % topical gel 1 applic topical DAILY 04/29/24 10/21/24 History omeprazole 20 mg capsule,delayed 20 mg PO DAILY 09/04/24 10/21/24 History release Exam Narrative Exam Narrative: awake, NAD eomi, MMM midline trachea, neck is symmetric PULM: normal resp effort, equal chest rise with respiration, no wheezing audible CARDIAC: normal PMI, no jvd, regular rate, normal perfusion abdomen is nondistended. extremities are without deformity, normal movement of all four extremities speech is clear and coherent mood and affect are congruent, no focal neurological deficits skin without rash Results Last Vital Signs Temp 98.2 F 10/21/24 08:16 Pulse 73 10/21/24 08:16 Resp 16 10/21/24 08:16 BP 162/79 H 10/21/24 08:16 Pulse Ox 99 10/21/24 08:16 Time Spent Time spent with Patient: 40-54 minutes Time was spent: preparing to see the patient(eg.review tests), indepentently interpreting results and counseling the patient
--- NOTE | 2024-10-21 09:54 | BOWEL_PTH ---
PATIENT: Zarina Pitt LOC: [facility] U#:[id number] AGE/SX: 78/F ROOM: RE10/21/[address]: Courtney Mcclure MD : 1945 BED: DIS: 10/21/2024 SPEC #: [id number] RECD: 10/21/24 12:26 STATUS: MICHAEL REHenry #: [id number] JANIS: 10/21/24 09:[address]: Courtney Mcclure DEPT: Surgical Specimen RECD BY: Elidia Martinez ENTERED: 10/21/24 12:26 SP TYPE: Bowel OTHR DR: Coy Dawkins Tissues: 1 - BIOPSY BOWEL Procedures: GROSS AND MICRO LEVEL 4 Comments: [id number]
[2024-10-21 10:05] VITALS: BP 123/80; PULSE 66; RESP 16; TEMP 35.7; O2SAT 99
--- NOTE | 2024-10-21 10:07 | W.COLOREPORT ---
Date of service: 10/21/24 Time of Service: 10:07 Colonoscopy Report Pre-op diagnosis general: History of adenomatous polyp, daughter with colon cancer Post-op diagnosis procedure note: same Procedure: Colonoscopy with cold forceps polypectomy Surgeon: Courtney Mcclure Anesthesia Type: General:No Airway Estimated blood loss (mL): 1 Pathology: other (1. ascending colon polyp) Complications: None Disposition: same day Prep: Miralax/Dulcolax (excellent) Procedure Description: Informed consent was obtained and the patient was taken to the procedure area. The patient was placed in left lateral decubitus position on the procedure table. Timeout was performed. Anesthesia was induced. A lubricated colonoscope was inserted through the anus and passed to the cecum. The cecum was identified by the ileocecal valve and the appendiceal orifice. The scope was then slowly withdrawn and the colonic and rectal mucosa examined. Ascending colon with 3mm sessile polyp excised with cold forceps. No diverticulosis was seen. The scope was retroflexed in the anorectal junction examined. Inflamed internal hemorrhoids present. Assessment and plan: Ascending colon polyp One <1cm polyp in high risk patient with family history. Next colonoscopy will be due in 5 years.
--- NOTE | 2024-10-21 10:10 | W.PM.DSUDISC ---
Date of service: 10/21/24 Discharge Plan Disposition Patient Disposition: Home Discharge Details Attending Provider: Courtney Mcclure Primary Care Provider: Coy Dawkins Recommendations for Follow Up Recommended tests to be ordered by follow up provider: Next colonoscopy due in 5 years Home Meds and New Rx's Prescriptions: Continued metronidazole 1 % gel 1 applic topical DAILY omeprazole 20 mg capsule,delayed release(DR/EC) 20 mg PO DAILY ASPIRIN 81 MG tablet 1 tab PO DAILY cholecalciferol (vitamin D3) 50 mcg (2,000 unit) capsule 100 mcg PO DAILY hydroxyurea 500 mg capsule 500 mg PO DAILY valsartan 40 mg tablet 40 mg PO QHS rosuvastatin 20 mg tablet 20 mg PO DAILY ibandronate [Boniva] 150 mg tablet 150 mg PO QMONTH Discharge Instructions Additional Instructions: One tiny polyp seen and removed today. Next colonoscopy will be due in 5 years due to this and other polyps you have had, and due to family history of colon cancer in your daughter. In five years you should continue to have colonoscopy as long as your health is still permitting. . Stand Alone Forms: Anesthesia Discharge Inst., Colonoscopy Post Instructions, Mona Das (DSU) Activity:: Activity as Tolerated Diet:: As Tolerated Discharge Orders Discharge Orders: Discharge Order (Routine); Ordered 10/21/24 Ordered By: Courtney Mcclure DS: Diagnosis Discharge Diagnosis (1) History of adenomatous polyp of colon: Status: Acute (2) Family history of colon cancer: Status: Acute (3) Polyp of ascending colon: Status: Acute
[2024-10-21 10:35] VITALS: BP 142/78; PULSE 66; RESP 16; TEMP 36.2; O2SAT 97
--- NOTE | 2024-10-21 10:40 | W.ANESPOSTOP ---
Postoperative Evaluation Date, Time and Location Date Performed: 10/21/24 Time Performed: 10:40 Patient Location: Day Surgery Unit Vital Signs Most Recent Imported Vital Signs: Most Recent Vital Signs Temp Pulse Resp BP Pulse Ox 35.7 C L 66 16 123/80 99 10/21/24 10:05 10/21/24 10:05 10/21/24 10:05 10/21/24 10:05 10/21/24 10:05 Pain Score Most Recent Pain Score: Most Recent Pain Score Pain Level 0 10/21/24 10:05 Assessment Mental Status: Awake (Alert & Oriented to Patient Baseline) Airway and Respiratory Function: Patent airway with normal (patient baseline) respiratory exam Cardiovascular Function: Hemodynamically Stable Hydration Status: Adequately Hydrated Nausea & Vomiting: No Nausea or Vomiting Pain: Pt. Denies Any Pain Peripheral Nerve Block: Patient did not receive a nerve block
== END 2024-10-21 10:51 | disposition home or self-care (01) ==
PROVIDERS: PCP Student in an Organized Health Care Education/Training Program; Visit Provider Surgery
PROC: 0DJD8ZZ Inspection of Lower Intestinal Tract, Via Natural or Artificial Opening Endoscopic (ICD-10-PCS; CPT 45378; principal; 2024-10-21 09:00)
DX: Z12.11 Encounter for screening for malignant neoplasm of colon (principal); Z80.0 Family history of malignant neoplasm of digestive organs; D12.2 Benign neoplasm of ascending colon
CPT/HCPCS: 45380; 88305; J2003; J2704

== ENCOUNTER → 2024-10-28 09:04 | Outpatient (BNVA) | payer MEDICARE, SELFPAY | PROVIDERS: PCP Student in an Organized Health Care Education/Training Program; Referring Provider Student in an Organized Health Care Education/Training Program; Visit Provider Physician Assistant | DX: M17.11 Unilateral primary osteoarthritis, right knee (principal) | CPT/HCPCS: 20610; J1010 ==

== ENCOUNTER 2025-02-03 12:11 | Outpatient (CLI) | payer MEDICARE, SELFPAY ==
--- NOTE | 2025-02-03 09:15 | DI.RAD_ITS ---
Exam(s) XR FOOT RT COMPLETE EXAM: XR FOOT RT COMPLETE CLINICAL HISTORY: right toe injury. TECHNIQUE: 2D digital imaging was performed of the right foot. Three images were obtained. AP, oblique and lateral views were obtained. COMPARISON: CR RIGHT FOOT COMPLETE from 04/02/2008 FINDINGS: BONES: No acute fracture is present. No bony destructive lesion is seen. JOINTS: No dislocation present. There are degenerative changes seen in the interphalangeal joints. SOFT TISSUE: Normal. There are no radiopaque foreign bodies. IMPRESSION: No acute fracture or dislocation is identified. DATA REPOSITORY: RADIATION DOSE DELIVERED:
== END 2025-02-03 12:12 | disposition home or self-care (01) ==
LOC: DIORS 12:11
PROVIDERS: PCP Student in an Organized Health Care Education/Training Program; Referring Provider Student in an Organized Health Care Education/Training Program; Visit Provider Student in an Organized Health Care Education/Training Program
DX: M17.11 Unilateral primary osteoarthritis, right knee (principal); M70.61 Trochanteric bursitis, right hip; S92.911A Unspecified fracture of right toe(s), initial encounter for closed fracture; W22.09XA Striking against other stationary object, initial encounter
CPT/HCPCS: 99213; 20610; J1010; 73630